=== PATIENT | female | born 1965 | race Caucasian/White ===

== ENCOUNTER → 2024-11-22 | Outpatient (CLI) | payer BC, SELFPAY ==
--- NOTE | 2024-11-22 | XR_ITS ---
Examination: PA lateral chest 2 views TECHNIQUE: Upright PA lateral chest 2 views Exam date and time: November 22, 2024 at 1316 hours INDICATIONS: Chronic coughing beginning 6 months ago. FINDINGS: Normal heart size No pneumonia or pulmonary edema Moderate osteopenia IMPRESSION: No pneumonia or pulmonary edema
[2024-11-22 14:49] LABS: Cocci Serology, IgM Negative (Negative)
[2024-11-27 12:18] LABS: Cocci Serology, IgG Negative (Negative)
== END | disposition home or self-care (01) ==
PROVIDERS: PCP Internal Medicine; Referring Provider Internal Medicine; Visit Provider Internal Medicine
DX: R05.3 Chronic cough (principal)
CPT/HCPCS: 36415; 71046; 86331; 86635

== ENCOUNTER → 2024-12-11 | Outpatient (CLI) | payer BC, SELFPAY ==
[2024-12-11 15:15] LABS: Collection Type, Urine Clean Catch
[2024-12-11 15:38] LABS: Basophils # (Auto) 0.1 Thou/mm3 (0.0-0.2); Basophils % (Auto) 1 % (0-2.5); Eosinophils # (Auto) 0.3 Thou/mm3 (0.0-0.5); Eosinophils % (Auto) 3 % (0-10); Hematocrit 40.4 % (36.0-46.0); Hemoglobin 13.3 g/dL (12.0-16.0); Immature Granulocytes % (Auto) 0 % (0-0); Immature Granulocytes Auto 0.04 Thou/mm3 (0.00-0.00); Lymphocytes # (Auto) 2.5 Thou/mm3 (1.0-4.8); Lymphocytes % (Auto) 27 % (10-50); Mean Corpuscular HGB Conc 32.9 g/dl (31.0-37.0); Mean Corpuscular Hemoglobin 29.2 pg (25.0-35.0); Mean Corpuscular Volume 89 fL (80-100); Monocytes # (Auto) 0.7 Thou/mm3 (0.0-0.8); Monocytes % (Auto) 8 % (0-12); Neutrophils # (Auto) 5.6 Thou/mm3 (1.8-7.7); Neutrophils % (Auto) 61 % (37-80); Nucleated Red Blood Cell % 0 /100 WBC (0); Platelet Count 392 Thou/mm3 (140-440); RDW Standard Deviation 42.5 fL (36.4-46.3); Red Blood Count 4.56 Miln/mm3 (4.00-5.20); White Blood Count 9.3 Thou/mm3 (3.6-11.0)
[2024-12-11 15:48] LABS: Bilirubin,Urine Negative (Negative); Blood,Urine Negative (Negative); Clarity,Urine Clear (Clear/Hazy); Color,Urine Colorless (Lt Yel-Yel); Culture Indicated,Urine Not Indicated; Glucose, Urine Negative (Negative); Ketones,Urine Negative (Negative); Leukocyte Esterase,Urine Negative (Negative); Nitrite,Urine Negative (Negative); Protein,Urine Negative (Neg - Trace); RBC,Urine 1 /hpf (0-3); Specific Gravity,Urine 1.006 (1.001-1.035); Squamous Epithelial Cell,Urine < 1 /hpf (0-5); Urobilinogen,Urine Negative mg/dL (0.0-1.0); WBC,Urine < 1 /hpf (0-5)
[2024-12-11 16:35] LABS: Alanine Aminotransferase 23 U/L (10-49); Albumin, Serum 4.6 gm/dL (3.4-4.8); Albumin/Globulin Ratio 2.2 (1.2-2.2); Anion Gap 8 (7-16); Aspartate Amino Transferase 31 U/L (0-34); BUN/Creatinine Ratio 17 Ratio (12-20); Bilirubin,Total 0.7 mg/dL (0.3-1.2); Blood Urea Nitrogen 15 mg/dL (9-23); Calcium 9.4 mg/dL (8.3-10.6); Calcium (Corrected) 9.4 mg/dL (8.5-10.1); Carbon Dioxide 28.2 mMol/L (20.0-31.0); Cardiac Risk Estimate 5.5 RATIO (3.7-5.6); Chloride 103 mMol/L (98-107); Cholesterol 188 mg/dL (132-200); Creatinine (Component) 0.9 mg/dL (0.6-1.3); Free T4 (Free Thyroxine) 0.95 ng/dL (0.89-1.76); Globulin 2.1 gm/dL (2.3-3.5); Glucose 94 mg/dL (74-106); HDL Cholesterol 34 mg/dL (40-60); LDL Cholesterol,Calculated 125 mg/dL (0-130); Osmolality,Calculated 278 (275-295); Potassium 4.9 mMol/L (3.4-5.1); Sodium 139 mMol/L (136-145); Thyroid Stimulating Hormone 0.85 uIU/mL (0.55-4.78); Total Protein 6.7 gm/dL (5.7-8.2); Triglycerides 144 mg/dL (30-150); eGFR > 60 See Note
[2024-12-11 16:50] LABS: Alkaline Phosphatase 63 U/L (46-116)
== END | disposition home or self-care (01) ==
PROVIDERS: PCP Internal Medicine; Referring Provider Internal Medicine; Visit Provider Internal Medicine
DX: Z00.00 Encounter for general adult medical examination without abnormal findings (principal)
CPT/HCPCS: 36415; 80053; 80061; 81001; 84439; 84443; 85025

== ENCOUNTER → 2025-05-30 | Outpatient (CLI) | payer BC, SELFPAY ==
[2025-05-30 12:46] LABS: Collection Type, Urine Clean Catch
[2025-05-30 13:01] LABS: Basophils # (Auto) 0.1 Thou/mm3 (0.0-0.2); Basophils % (Auto) 1 % (0-2.5); Eosinophils # (Auto) 0.1 Thou/mm3 (0.0-0.5); Eosinophils % (Auto) 2 % (0-10); Hematocrit 43.8 % (36.0-46.0); Hemoglobin 14.5 g/dL (12.0-16.0); Immature Granulocytes Auto 0.02 Thou/mm3 (0.00-0.00); Lymphocytes # (Auto) 2.7 Thou/mm3 (1.0-4.8); Lymphocytes % (Auto) 32 % (10-50); Mean Corpuscular HGB Conc 33.1 g/dl (31.0-37.0); Mean Corpuscular Hemoglobin 28.5 pg (25.0-35.0); Mean Corpuscular Volume 86 fL (80-100); Monocytes # (Auto) 0.6 Thou/mm3 (0.0-0.8); Monocytes % (Auto) 7 % (0-12); Neutrophils # (Auto) 4.8 Thou/mm3 (1.8-7.7); Neutrophils % (Auto) 58 % (37-80); Nucleated Red Blood Cell # 0.00 Thou/mm3 (0.00-0.00); Nucleated Red Blood Cell % 0 /100 WBC (0); Platelet Count 292 Thou/mm3 (140-440); RDW Standard Deviation 40.8 fL (36.4-46.3); Red Blood Count 5.08 Miln/mm3 (4.00-5.20); White Blood Count 8.3 Thou/mm3 (3.6-11.0)
[2025-05-30 13:17] LABS: Alanine Aminotransferase 14 U/L (10-49); Albumin, Serum 4.7 gm/dL (3.4-4.8); Albumin/Globulin Ratio 2.2 (1.2-2.2); Alkaline Phosphatase 68 U/L (46-116); Anion Gap 11 (7-16); Aspartate Amino Transferase 23 U/L (0-34); BUN/Creatinine Ratio 11 Ratio (12-20); Bilirubin,Total 0.8 mg/dL (0.3-1.2); Blood Urea Nitrogen 9 mg/dL (9-23); Calcium 10.3 mg/dL (8.3-10.6); Calcium (Corrected) 10.3 mg/dL (8.5-10.1); Carbon Dioxide 24.1 mMol/L (20.0-31.0); Cardiac Risk Estimate 4.9 RATIO (3.7-5.6); Chloride 105 mMol/L (98-107); Cholesterol 147 mg/dL (132-200); Creatinine (Component) 0.8 mg/dL (0.6-1.3); Free T4 (Free Thyroxine) 1.33 ng/dL (0.89-1.76); Globulin 2.1 gm/dL (2.3-3.5); Glucose 91 mg/dL (74-106); HDL Cholesterol 30 mg/dL (40-60); LDL Cholesterol,Calculated 100 mg/dL (0-130); Osmolality,Calculated 278 (275-295); Potassium 4.2 mMol/L (3.4-5.1); Sodium 140 mMol/L (136-145); Thyroid Stimulating Hormone 1.70 uIU/mL (0.55-4.78); Total Protein 6.8 gm/dL (5.7-8.2); Triglycerides 85 mg/dL (30-150); eGFR > 60 See Note
[2025-05-30 13:47] LABS: Bacteria,Urine 4+; Hyaline Casts,Urine 1 /hpf (0-1); RBC,Urine 7 /hpf (0-3); Squamous Epithelial Cell,Urine 3 /hpf (0-5); WBC,Urine 240 /hpf (0-5)
[2025-05-30 14:08] LABS: Bilirubin,Urine Negative (Negative); Blood,Urine Negative (Negative); Clarity,Urine Turbid (Clear/Hazy); Color,Urine Yellow (Lt Yel-Yel); Glucose, Urine Negative (Negative); Ketones,Urine 1+ (Negative); Leukocyte Esterase,Urine Positive (Negative); Nitrite,Urine Positive (Negative); PH,Urine 5.5 (5.0-7.0); Protein,Urine Trace (Neg - Trace); Specific Gravity,Urine 1.020 (1.001-1.035); Urobilinogen,Urine Negative mg/dL (0.0-1.0)
[2025-05-30 14:14] LABS: Culture Indicated,Urine Yes
== END | disposition home or self-care (01) ==
LOC: COPL 11:36
PROVIDERS: PCP Internal Medicine; Referring Provider Internal Medicine; Visit Provider Internal Medicine
DX: E78.00 Pure hypercholesterolemia, unspecified (principal)
CPT/HCPCS: 36415; 80053; 80061; 81001; 84439; 84443; 85025; 87077; 87086; 87186

== ENCOUNTER 2025-08-27 23:03 | Inpatient (IN) | payer BC, SELFPAY ==
[2025-08-27 23:12] VITALS: BP 102/68; PULSE 101; RESP 18; TEMP 36.3; O2SAT 96
--- NOTE | 2025-08-27 23:37 | XR_ITS ---
Examination: CT abdomen with intravenous contrast CT pelvis with intravenous contrast 2-D coronal reconstructions 2-D sagittal reconstructions Date and time of exam: August 28, 2025, 0239 hours INDICATIONS: Onset abdominal and pelvic pain with nausea vomiting today. CTDI: vol (mGy) 8.87 DLP: (mGycm) 483 Technique: Multiple axial sections of the abdomen and pelvis have been obtained. 64 slice high-resolution scanner used. 3 mm axial sections have been obtained, post intravenous injection 60 cc Isovue 370 2-D sagittal, coronal reconstructions obtained. Low dose protocols were performed. One or more of the following dose reduction techniques were used; automated exposure control, adjustment of the mA and/or KV according to patient size, use of iterative reconstruction technique. Findings: No focal liver or splenic lesions Gallstones Gallbladder wall appears thickened Mild edema around the duodenum and pancreatic head The wall of the common hepatic common bile duct does appear mildly thickened, coronal image 69, common hepatic duct 7.5 mm No renal or ureteral calculi, no hydronephrosis 14 mm fat-containing umbilical hernia Colonic diverticulosis No pelvic mass Bladder intact Lumbar fusion L5-S1 with satisfactory alignment IMPRESSION: Cholelithiasis, gallbladder wall appears thickened Mild edema around the duodenum and pancreatic head consistent with pancreatitis Mildly enlarged common bile duct suspicious for cholangitis Recommend MRCP follow-up
--- NOTE | 2025-08-27 23:39 | PD.EDRME ---
Rapid Medical Screening Exam RME Arrival date/time: 08/27/25 23:03 60-year-old female reports with complaints of abdominal pain nausea and vomiting x 1 day Chief Complaint: Chest Pain Time Seen by Provider: 08/27/25 23:37 Vital signs: Vital Signs Temperature 97.4 F 08/27/25 23:12 Pulse Rate 101 H 08/27/25 23:12 Respiratory Rate 18 08/27/25 23:12 Blood Pressure 102/68 08/27/25 23:12 Pulse Oximetry (%) 96 08/27/25 23:12 Oxygen Delivery Method Room Air 08/27/25 23:12 Exam: ? Clinical Impression: S
[2025-08-27 23:57] LABS: Basophils # (Auto) 0.0 Thou/mm3 (0.0-0.2); Basophils % (Auto) 0 % (0-2.5); Eosinophils # (Auto) 0.0 Thou/mm3 (0.0-0.5); Eosinophils % (Auto) 0 % (0-10); Hematocrit 37.8 % (36.0-46.0); Hemoglobin 13.0 g/dL (12.0-16.0); Immature Granulocytes Auto 0.05 Thou/mm3 (0.00-0.00); Lymphocytes # (Auto) 0.5 Thou/mm3 (1.0-4.8); Lymphocytes % (Auto) 4 % (10-50); Mean Corpuscular HGB Conc 34.4 g/dl (31.0-37.0); Mean Corpuscular Hemoglobin 28.7 pg (25.0-35.0); Mean Corpuscular Volume 83 fL (80-100); Monocytes # (Auto) 0.6 Thou/mm3 (0.0-0.8); Monocytes % (Auto) 5 % (0-12); Neutrophils # (Auto) 10.1 Thou/mm3 (1.8-7.7); Neutrophils % (Auto) 90 % (37-80); Nucleated Red Blood Cell # 0.00 Thou/mm3 (0.00-0.00); Nucleated Red Blood Cell % 0 /100 WBC (0); Platelet Count 247 Thou/mm3 (140-440); RDW Standard Deviation 38.5 fL (36.4-46.3); Red Blood Count 4.53 Miln/mm3 (4.00-5.20); White Blood Count 11.3 Thou/mm3 (3.6-11.0)
[2025-08-28] VITALS (11 sets, daily range): BP systolic 100–124; BP diastolic 52–79; PULSE 60–90; RESP 14–19; TEMP 36.5–37.5; O2SAT 92–100
--- NOTE | 2025-08-28 | XR_ITS ---
MRI abdomen, without contrast. MRCP Date and time of exam: August 28, 2025, 0934 hours INDICATIONS: Abdominal pain nausea vomiting today CT examination today gallstones, edema around the duodenum and pancreas Technique: Multiple axial and coronal images of the abdomen have been obtained with the Siemens 1.5T MRI scanner. Images obtained included T1 weighted transverse images, T2-weighted transverse images, T2-weighted transverse images fat-suppressed, T2 weighted haste fat suppressed transverse images, T1 weighted images, in and out of phase images, T2-weighted coronal images, breath hold, T2 weighted haze coronal images as well as T2 weighted coronal thick slab images, MRCP. Findings: No focal liver lesions Gallstones, gallbladder wall does not appear thickened or edematous Common bile duct 5 mm no common bile duct stones There is significant edema surrounding the pancreas, axial image 21 Pancreatic duct is not dilated Spleen is not enlarged Minimal perinephric stranding which may be secondary to the pancreatitis Aorta normal size No bowel obstruction IMPRESSION: Cholelithiasis, negative for cholecystitis Significant acute pancreatitis No common hepatic or common bile duct stones, no cholangitis pattern
--- NOTE | 2025-08-28 00:13 | EKG_ITS ---
[facility] Test Date: 2025-08-28 Pat Name: SEVERIANO ARREOLA Department: Room: - Gender: Female Food Service Representative: : 1965 Requested By: Matthew Bryant Order Number: [id number] Reading MD: Matthew Bryant Measurements Intervals [place] Rate: 92 P: 62 [place]: 145 QRS: -30 QRSD: 98 T: 30 QT: 379 QTc: 470 Interpretive Statements SINUS RHYTHM SEPTAL MYOCARDIAL INFARCTION , OF INDETERMINATE AGE [40+ ms Q WAVE IN V1/V2] No previous ECG available for comparison /store/S0/[id number].pdf
[2025-08-28] MEDS: METOCLOPRAMIDE INJ 5 MG/ML VIAL 2 ML 10 MG IVP (00:16)
[2025-08-28 00:27] LABS: Alanine Aminotransferase 322 U/L (10-49); Albumin, Serum 4.5 gm/dL (3.4-4.8); Albumin/Globulin Ratio 2.6 (1.2-2.2); Alkaline Phosphatase 198 U/L (46-116); Anion Gap 13 (7-16); Aspartate Amino Transferase 763 U/L (0-34); BUN/Creatinine Ratio 11 Ratio (12-20); Bilirubin,Total 1.7 mg/dL (0.3-1.2); Blood Urea Nitrogen 9 mg/dL (9-23); Calcium 9.6 mg/dL (8.3-10.6); Calcium (Corrected) 9.6 mg/dL (8.5-10.1); Carbon Dioxide 22.1 mMol/L (20.0-31.0); Chloride 109 mMol/L (98-107); Creatinine (Component) 0.8 mg/dL (0.6-1.3); Estimated Creatinine Clearance 75.3 mL/min (>60); Globulin 1.7 gm/dL (2.3-3.5); Glucose 138 mg/dL (74-106); Osmolality,Calculated 287 (275-295); Potassium 3.1 mMol/L (3.4-5.1); Sodium 144 mMol/L (136-145); Total Protein 6.2 gm/dL (5.7-8.2); eGFR > 60 See Note
--- NOTE | 2025-08-28 00:27 | PC.NURSE ---
Pt verbalizes she is not currently having any chest pain. EKG is ordered for patient, and will continue to monitor pt.
--- NOTE | 2025-08-28 00:28 | EDNOTE_ITS ---
ED Chest Pain RME/HPI General Chief Complaint: Chest Pain Stated Complaint: CHEST PAIN MULTIPLE COMPLAINTS Time Seen by Provider: 08/27/25 23:37 Arrival date/time: 08/27/25 23:03 RME / HPI RME / HPI narrative: 08/27/25 23:03 60-year-old female reports with complaints of abdominal pain nausea and vomiting x [address] Brooks?fabricio Main ED Evaluation: 60yo female presenting with diffuse upper abdominal pain since earlier today with several bouts of nonbloody emesis and radiation of pain to the back. Reports generalized fatigue, but denies near syncope. No black tarry stools or hematemesis. PMH includes chronic back pain. PSH includes gastric bypass, appendectomy, L4-s1 lumbar fixation surgery. Social history unremarkable. Related Data Allergies Allergy/AdvReac Type Severity Reaction Status Date / Time NKA* Allergy Uncoded 08/27/25 23:11 Review of Systems Review of Systems Systems Reviewed: All systems reviewed, normal except as documented Past Medical History Past Medical History CARDIAC: Negative Congestive Heart Failure RESPIRATORY: Negative Chronic Obstructive Pulmonary Disease (COPD) GENITOURINARY: Negative Renal Disease ENDOCRINE: Negative Diabetes Mellitus Type 1 or Diabetes Mellitus Type 2 PSYCHO/SOCIAL: Positive Depression Social History SMOKING STATUS: Never smoker ED Exam Narrative Physical exam: GENERAL APPEARANCE: alert and oriented x 4, complains of diffuse upper abdominal pain, in [id number] distress VITALS: All vitals were reviewed and the pulse ox is 100% on room air, which is normal according to my interpretation. HEENT: Normocephalic, atraumatic; pupils equal, round, reactive to light; EOMI; mucous membranes pink, moist; oropharynx clear NECK: Supple LUNGS: CTABL; no wheezes, no rales, no rhonchi HEART: Regular rate, regular rhythm; normal S1, S2; no murmurs ABDOMEN: non distended; soft, diffuse upper abdominal tenderness with equivocal peritoneal findings BACK: no CVA tenderness EXTREMITIES: atraumatic; no edema NEUROLOGIC: awake; alert and oriented x4; cranial nerves II-XII grossly intact; no focal sensory or motor deficits PSYCHIATRIC: appropriate mood and affect SKIN: warm, dry, normal color; no rashes Course Quality Measures none Orders Category Date Time Status CT Screening NOW Care 08/27/25 23:38 Active EKG (ED ONLY) *Do not use* NOW Care 08/28/25 00:[address] abdomen pelvis w con Stat Exams 08/27/25 23:37 Taken EKG (ED Only) Stat Exams 08/28/25 00:13 Ordered US abdomen limited Stat Exams 08/28/25 00:40 Taken Bilirubin,Direct Stat Lab 08/28/25 05:40 Received CBC Stat Lab 08/27/25 23:51 Completed CMP [Comprehensive Metabolic Panel] Stat Lab 08/27/25 23:51 Completed Lipase Stat Lab 08/27/25 23:51 Completed Lipid Panel Stat Lab 08/28/25 05:40 Received UA [Urinalysis] Stat Lab 08/27/25 23:38 Ordered Metoclopramide Inj [Reglan Inj] Med 08/27/25 23:37 Discontinued 10 mg IVP X1 ONE Morphine* Inj Med 08/28/25 00:36 Discontinued 4 mg IVP X1 ONE Prochlorperazine Inj [Compazine Inj] Med 08/28/25 00:35 Discontinued 5 mg IV X1 ONE Sodium Chloride 0.9% 1000 ml [Ns] 1,000 ml Med 08/28/25 00:37 Discontinued IV 999 mls/hr Sodium Chloride 0.9% 1000 ml [Ns] 1,000 ml Med 08/28/25 00:37 Discontinued IV 999 mls/hr Vital Signs Vital signs: Vital Signs Temperature 97.4 F 08/27/25 23:12 Pulse Rate 101 H 08/27/25 23:12 Respiratory Rate 18 08/27/25 23:12 Blood Pressure 102/68 08/27/25 23:12 Pulse Oximetry (%) 96 08/27/25 23:12 Oxygen Delivery Method Room Air 08/27/25 23:12 Chest Pain MDM Narrative MDM Narrative:: Scribe Attestation: 08/28/25 - Radha Gonzalez am scribing for and in the presence of Dr. Brooks. 60yo female presenting with diffuse upper abdominal pain since earlier today with several bouts of nonbloody emesis and radiation of pain to the back. Reports generalized fatigue, but denies near syncope. Please see PE findings. Lab markers demonstrate mildly elevated LFTs although markedly elevated Lipase >3500. CT abdomen pelvis shows both cholecystitis and pancreatitis with cholelithiasis. Abdominal US demonstrates cholecystitis without CBD dilitation. Patient treated with IV antibiotics, fluids, and low dose narcotic analgesics/antiemetics with thdz-fs-cqrhbxqw relief. General surgeon agrees to consult for consideration for cholecystectomy. Hospitalist at bedside have eval patient and added direct bilirubin to determine the likelihood of biliary obstruction due to cholelithiasis. Patient data External records reviewed:: [facility] previous records (Per chart review, patient has no previous ED visits or admissions to this facility.) Clinical information provided by:: patient Social determinants that could affect healthcare access:: none Patient has the following chronic illnesses:: none How is presenting disease/condition affected by chronic disease/condition?: no chronic disease Evaluation data The following diagnostics were reviewed and interpreted by me:: lab results, radiology exam(s) and EKG tracing(s) Lab and/or radiology exams considered but not ordered:: none Interpretation Summary: Telerad Preliminary Report Draft Patient: SEVERIANO ARREOLA. Record#: [id number] Birthdate: 1965 Age/Sex: 60 / F Location: [facility] Attending Dr: Ordering Physician: Date of Service: Procedure(s): Accession Number(s): cc: ~ CT scan of the abdomen and pelvis with intravenous contrast (axial sections with sagittal and coronal reformats) August 28, 2025 0239 hours Clinical History: abd pain, n/v No prior study is available for comparison. Findings: The lung bases are clear. There are fat stranding adjacent to the pancreatic head and duodenum, suggestive of acute pancreatitis and duodenitis. Cholelithiasis with mild gallbladder wall thickening which may represent acute cholecystitis. The liver, spleen, kidneys and adrenals are unremarkable. Gastric sleeve surgery changes are noted. Bowel anastomotic sutures are seen in the left colon. No evidence of bowel obstruction. A moderate amount of fecal material is present in the colon. There are multiple colonic diverticula without evidence of diverticulitis. The appendix is not visualized. There is no mesenteric or retroperitoneal adenopathy. The urinary bladder is unremarkable. There is no free fluid or free air. The uterus and adnexa are unremarkable. Calcific densities are seen in the pelvis, likely representing phleboliths. Degenerative changes are identified in the spine. Postoperative changes are noted in the lower lumbar spine. Impression: No evidence of bowel obstruction, free air or abscess. Fat stranding adjacent to the pancreatic head and duodenum, suggestive of acute pancreatitis and duodenitis. Recommend clinical and laboratory correlation. Cholelithiasis with mild gallbladder wall thickening which may represent acute cholecystitis. Recommend further evaluation with sonography, if clinically indicated. Report Electronically Signed By: Scot Armando 08/28/2025 3:58:49 AM Medications / Prescriptions Medications or Prescriptions considered but not ordered:: none Medication administrations:: Medication Administration History Discontinued Medications Sodium Chloride (Ns) 1,000 mls @ 999 mls/hr IV .Q1H1M ONE Stop: 08/28/25 01:37 Last Infusion: 08/28/25 02:34 Dose: Infused Documented By: Admin: 08/28/25 00:54 Dose: 999 mls/hr Documented By: LISA Sodium Chloride (Ns) 1,000 mls @ 999 mls/hr IV .Q1H1M ONE Stop: 08/28/25 01:37 Last Infusion: 08/28/25 02:34 Dose: Infused Documented By: Admin: 08/28/25 00:54 Dose: 999 mls/hr Documented By: LISA Metoclopramide HCl (Metoclopramide Inj 5 Mg/Ml Vial 2 Ml) 10 mg IVP X1 ONE; Pro tocol Stop: 08/27/25 23:38 Last Admin: 08/28/25 00:16 Dose: 10 mg Documented By: LISA Morphine Sulfate (Morphine Sulf Inj 4 Mg/Ml Vial) 4 mg IVP X1 ONE Stop: 08/28/25 00:37 Last Admin: 08/28/25 00:50 Dose: 4 mg Documented By: LISA Prochlorperazine Edisylate (Prochlorperazine Inj 5 Mg/Ml Vial 2 Ml) 5 mg IV X1 ONE; Protocol Stop: 08/28/25 00:36 Last Admin: 08/28/25 00:53 Dose: 5 mg Documented By: LISA see above Consultations Consultation(s) initiated? (list below): Yes Consultation #1 (Physician, Specialty, Details): Discussed case with Dr. Redding from general surgery regarding consultation. Discussed patients ED course, exam findings, labs, and radiology results. Agrees to consult. Time: 04:16 Consultation #2 (Physician, Specialty, Details): Discussed case with the resident physician, attending Dr. Silverman from Hospitalist service regarding admission. Discussed patients ED course, exam findings, labs, and radiology results. The Hospitalist will evaluate the patient for admission. Time: 04:20 Diagnosis Chest Pain Differential Diagnosis: other (cholelithiasis, cholecystitis, choledocholithiasis, pancreatitis, diverticulitis, gastritis) Most likely diagnosis given after review of the tests above:: see clinical impression below Admission Indicated Admission indicated?: indicated Admission Request Was there a request for admission?: Yes Admission Attestation Admission request attestation: Discussed case with [] from Hospitalist service regarding admission. Discussed patients ED course, exam findings, labs, and radiology results. The Hospitalist [agrees,declines] to accept the patient for admission. Disposition Plan Disposition Plan: Admit Discharge Plan Plan Patient Disposition: Admit Acute Care w/in Hospital Prescriptions/Referrals Referrals: Dania Meyers MD [Primary Care Provider, Internal Medicine] - In 1 week Problem List Clinical Impression: Gallstone pancreatitis Patient/Caregiver Discharge Instructions Print Language: Thai Stand Alone Forms: Bailey Award Info., Patient Portal Info Letter
[2025-08-28 00:29] LABS: Lipase > 3500 U/L (12-53)
--- NOTE | 2025-08-28 00:40 | XR_ITS ---
Examination: Abdomen sonogram, Limited Date and time of exam: August 28, 2025, 0208 hours INDICATIONS: Onset epigastric pain today Technique: Real-time gonzalez scale transabdominal sonographic images of the upper abdomen obtained. Findings: Gallbladder sludge Suspicious for small gallstones Gallbladder wall is thickened 0.6 cm Common bile duct is poorly visualized, according to the technologist measures 0.3 cm Pancreatic head 3.1 cm Liver 13.3 cm fatty infiltration irregular contour Normal hepatopetal portal venous flow Patent IVC IMPRESSION: Findings consistent with calculus cholecystitis Consider MRCP follow-up given the CT findings today
[2025-08-28] MEDS: MORPHINE SULF INJ 4 MG/ML VIAL IVP (00:50)
[2025-08-28] MEDS: PROCHLORPERAZINE INJ 5 MG/ML VIAL 2 ML IV (00:53)
[2025-08-28] MEDS: SODIUM CHLORIDE 0.9% 1000 ML 1,000 ML 999 ML IV ×2 (00:54)
--- NOTE | 2025-08-28 03:59 | PRELIM_ITS ---
CT scan of the abdomen and pelvis with intravenous contrast (axial sections with sagittal and coronal reformats) August 28, 2025 0239 hours Clinical History: abd pain, n/v No prior study is available for comparison. Findings: The lung bases are clear. There are fat stranding adjacent to the pancreatic head and duodenum, suggestive of acute pancreatitis and duodenitis. Cholelithiasis with mild gallbladder wall thickening which may represent acute cholecystitis. The liver, spleen, kidneys and adrenals are unremarkable. Gastric sleeve surgery changes are noted. Bowel anastomotic sutures are seen in the left colon. No evidence of bowel obstruction. A moderate amount of fecal material is present in the colon. There are multiple colonic diverticula without evidence of diverticulitis. The appendix is not visualized. There is no mesenteric or retroperitoneal adenopathy. The urinary bladder is unremarkable. There is no free fluid or free air. The uterus and adnexa are unremarkable. Calcific densities are seen in the pelvis, likely representing phleboliths. Degenerative changes are identified in the spine. Postoperative changes are noted in the lower lumbar spine. Impression: No evidence of bowel obstruction, free air or abscess. Fat stranding adjacent to the pancreatic head and duodenum, suggestive of acute pancreatitis and duodenitis. Recommend clinical and laboratory correlation. Cholelithiasis with mild gallbladder wall thickening which may represent acute cholecystitis. Recommend further evaluation with sonography, if clinically indicated. Report Electronically Signed By: Scot Armando 08/28/2025 3:58:49 AM [EST]
[2025-08-28 06:21] LABS: Bilirubin,Direct 1.1 mg/dL (0.0-0.3); Cardiac Risk Estimate 3.3 RATIO (3.7-5.6); Cholesterol 103 mg/dL (132-200); HDL Cholesterol 31 mg/dL (40-60); LDL Cholesterol,Calculated 65 mg/dL (0-130); Triglycerides 37 mg/dL (30-150)
--- NOTE | 2025-08-28 06:21 | PRELIM_ITS ---
Ultrasound Abdomen. August 28, 2025 0208 hours Clinical history: R/O choledocholithiasis. Technique: Grayscale and color flow images of the abdomen are provided. Hepatic and portal veins were also imaged with color flow images. Correlated with the prior CT study dated 08/28/2025 02:39 AM Findings: The liver is heterogeneous in echogenicity with irregular contour. Hepatopetal flow in main portal vein. No intrahepatic biliary ductal dilatation. Echogenic content is seen gallbladder suggesting sludge, however calculi can not be excluded within also. Gallbladder wall thickening. The common bile duct is normal in caliber at 3 mm. The pancreas is unremarkable to the extent visualized. The inferior vena cava to the extent visualized is within normal limits. Impression: Findings related to cholelithiasis with acute cholecystitis. No evidence of choledocholithiasis. Report Electronically Signed By: Scot Armando 08/28/2025 6:21:37 AM [EST]
--- NOTE | 2025-08-28 08:04 | EDNOTE_ITS ---
Emergency Room Addendum <Radha Cervantes - Last Filed: 08/28/25 08:07> Addendum Narrative: 0600: Care assumed from Dr. Lee, the previous shift emergency physician. Past medical, surgical, social and family history reviewed. Vitals and home medications reviewed. Results and treatment plan discussed. I will assume the care of the patient at this time and will follow the patient. Please refer to the emergency department record for history and examination from initial visit. 0805: Discussed case with Dr. Redding from general surgery regarding consultation. Discussed patients ED course, exam findings, labs, and radiology results. States she will not be taking the patient to the OR anytime soon due to the patient's pancreatitis. <Tricia To - Last Filed: 08/28/25 12:26> Addendum Narrative: 0600: Care assumed from Dr. Lee, the previous shift emergency physician. Past medical, surgical, social and family history reviewed. Vitals and home medications reviewed. Results and treatment plan discussed. I will assume the care of the patient at this time and will follow the patient pending MRCP. Please refer to the emergency department record for history and examination from initial visit. 0805: Discussed case with Dr. Redding from general surgery regarding consultation. Discussed patients ED course, exam findings, labs, and radiology results. States she will not be taking the patient to the OR anytime soon due to the patient's pancreatitis. 1100: I spoke with hospitalist team C. Discussed patients PMHx, HPI, ED course, exam findings, labs, and radiology results. The hospitalist agree to accept the patient for admission. Diagnosis: Acute pancreatitis RADIOLOGY Ordering Physician: Grady Browne Date of Service: 08/28/25 Procedure(s): MR MRCP Accession Number(s): [id number] cc: Berto Meeks MD; Anya Coles MD; Grady Browne~ MRI abdomen, without contrast. MRCP Date and time of exam: August 28, 2025, 0934 hours INDICATIONS: Abdominal pain nausea vomiting today CT examination today gallstones, edema around the duodenum and pancreas Technique: Multiple axial and coronal images of the abdomen have been obtained with the Siemens 1.5T MRI scanner. Images obtained included T1 weighted transverse images, T2-weighted transverse images, T2-weighted transverse images fat-suppressed, T2 weighted haste fat suppressed transverse images, T1 weighted images, in and out of phase images, T2-weighted coronal images, breath hold, T2 weighted haze coronal images as well as T2 weighted coronal thick slab images, MRCP. Findings: No focal liver lesions Gallstones, gallbladder wall does not appear thickened or edematous Common bile duct 5 mm no common bile duct stones There is significant edema surrounding the pancreas, axial image 21 Pancreatic duct is not dilated Spleen is not enlarged Minimal perinephric stranding which may be secondary to the pancreatitis Aorta normal size No bowel obstruction IMPRESSION: Cholelithiasis, negative for cholecystitis Significant acute pancreatitis No common hepatic or common bile duct stones, no cholangitis pattern Dictated By: Berto Meeks MD Signed By: <Electronically signed by Berto Meeks MD in [place]> 08/28/25 1032
[2025-08-28 08:11] LABS: Collection Type, Urine Clean Catch; RBC,Urine 0 /hpf (0-3); WBC,Urine 0 /hpf (0-5)
[2025-08-28 08:27] LABS: Bilirubin,Urine Negative (Negative); Blood,Urine Negative (Negative); Clarity,Urine Clear (Clear/Hazy); Color,Urine Yellow (Lt Yel-Yel); Glucose, Urine Negative (Negative); Ketones,Urine Trace (Negative); Leukocyte Esterase,Urine Negative (Negative); Nitrite,Urine Negative (Negative); PH,Urine 5.5 (5.0-7.0); Protein,Urine Negative (Neg - Trace); Squamous Epithelial Cell,Urine 2 /hpf (0-5); Urobilinogen,Urine 2.0 mg/dL (0.0-1.0)
[2025-08-28 08:29] LABS: Specific Gravity,Urine > 1.035 (1.001-1.035)
[2025-08-28] MEDS: LORazepam 2 MG/ML VIAL 1 MG IVP (09:49)
--- NOTE | 2025-08-28 12:46 | ESHP_ITS ---
<Statement entered by Sharif Donnelly MD - 08/28/25 17:01> Ms. Jones is a 60 y/o female with PMH GERD, appendectomy and Dilan-en-Y and on retatrutide (GLP-1agonist) presented to the ED complaining of with RUQ and epigastric pain for past 1 day as well as nausea and several episodes of nonbloody nonbilious vomiting. Pt denies alcohol use or any previous episodes of similar symptoms. Lipase is >3500 and imaging is evident of acute pancreatitis. Pt is NPI, started on IV fluids and pain management. Patient was seen and examined by me personally. I have directly supervised and reviewed documentation by the team resident and agree with its findings. ------- Plan of care was discussed with the attending, Dr. Serafin Donnelly, PGY-2 Documentation for date of: 08/28/25 HPI History of Present Illness History of present illness: Ms. Jones is a 60 y/o female with PMH GERD, appendectomy and Dilan-en-Y who presented to the ED on 08/28 with RUQ and epigastric pain x 1 day. Associated with nausea and 6-7 episodes of nonbloody nonbilious vomitng. Last PO intake 08/27 at noon, developed symptoms starting around 3 PM 08/27. Last BM 08/27 AM, regular. No similar previous episodes. Patient has been taking Retatrutide since January 2025, last injection 2 weeks ago. She has lost ~80 lbs since starting this medication. She orders this medication online from [facility], and her PCP, Dr. Meyers, was made aware, follows basic labs, per pt. She does not take any supplements, does not have any dietary restrictions. ED course: Afebrile, VSS. Labs significant for WBC 11.3, K 3.1, Cl 109, AST 763, ALT 322, alk phos 198, T bili 1.7, D bili 1.1. Lipase >3500. Lipid panel WNL. UA unremarkable. CT a/p, Abd US, and MRCP showed cholelithiasis w/o cholecystitis, no CBD stones. Acute pancreatitis. Given metoclopramide 10 mg IV, morphine 4 mg IV, prochlorperazine 5 mg IV, lorazepam 1 mg IV, and 2L NS. PMHx: Depression, GERD Allergies: NKDA Home meds: Citalopram 40 mg daily Omeprazole 40 mg daily Retatrutide weekly injection (triple receptor agonist) - from [employer] peptide SgHx: Appendectomy, Dilan-en-Y SHx: Denies smoking, EtOH, recreational drug use FHx: none reported Review of Systems Review of Systems Narrative Review of Systems: 14 point ROS negative other than HPI Exam Vital Signs Temp Pulse Resp BP Pulse Ox O2 Del Method 99.5 F 67 14 100/64 97 Room Air 08/28/25 10:40 08/28/25 10:40 08/28/25 10:40 08/28/25 10:40 08/28/25 10:40 08/28/25 10:40 Narrative Exam General: No acute distress, well nourished, lying in bed with lights off Eye: PERRL, EOMI, normal conjunctiva, no scleral icterus HENT: Normocephalic, atraumatic, normal hearing, moist oral mucosa Neck: Supple, non-tender, no JVD, no lymphadenopathy Lungs: Clear to auscultation bilaterally, non-labored respirations, symmetric chest rise, no use of accessory muscles Heart: Normal S1 and S2, no S3 or S4 appreciated. Normal rate and regular rhythm, no murmurs, rubs gallops, or edema. Peripheral pulses intact bilaterally, capillary refill brisk distally Abdomen: Soft, nondistended, TTP of b/l upper quadrants and epigastric region, guarding with palpation in LUQ and epigastric region Musculoskeletal: Normal range of motion and strength, no tenderness or swelling Skin: Skin is warm, dry, no rashes or lesions. Neurologic: Alert, awake and oriented x3. CN II-XII grossly intact. No focal neuro deficits. No signs of meningeal irritation noted. Psychiatric: Cooperative, appropriate mood and affect Results: Labs 08/29/25 04:25 08/29/25 04:25 Labs: Short CBC 08/27/25 Range/Units 23:51 WBC 11.3 H (3.6-11.0) Thou/mm3 Hgb 13.0 (12.0-16.0) g/dL Hct 37.8 (36.0-46.0) % Plt Count 247 (140-440) Thou/mm3 [facility] 08/27/25 23:51 Sodium 144 Potassium 3.1 L Chloride 109 H Carbon Dioxide 22.1 BUN 9 Creatinine 0.8 Glucose 138 H Calcium 9.6 Liver Function 08/27/25 08/28/25 Range/Units 23:51 05:40 Total Bilirubin 1.7 H (0.3-1.2) mg/dL Direct Bilirubin 1.1 H (0.0-0.3) mg/dL AST 763 H* (0-34) U/L ALT 322 H (10-49) U/L Alkaline Phosphatase 198 H (46-116) U/L Albumin 4.5 (3.4-4.8) gm/dL Urine 08/28/25 Range/Units 08:02 Urine Color Yellow (Lt Yel-Yel) Urine Clarity Clear (Clear/Hazy) Urine pH 5.5 (5.0-7.0) Ur Specific [place] > 1.035 H (1.001-1.035) Urine Protein Negative (Neg - Trace) Urine Glucose (UA) Negative (Negative) Quality Measures Quality Measures none Medications Home Medications and Allergies Home Medications ?Medication ?Instructions ?Recorded ?Confirmed ?Type citalopram 40 mg tablet (Celexa) 40 mg PO QDAY 5 08/28/25 History omeprazole 40 mg capsule,delayed 40 mg PO QDAY 5 08/28/25 History release Allergies Allergy/AdvReac Type Severity Reaction Status Date / Time NKA* Allergy Uncoded 08/27/25 23:11 Visit Medications Acetaminophen (Acetaminophen 325 Mg Tablet) 650 mg PO Q6H PRN PRN Reason: Fever >100.3 Stop: 09/27/25 12:28 Acetaminophen (Acetaminophen 325 Mg Tablet) 650 mg PO Q6H PRN PRN Reason: PAIN SCALE 1-3 (mild Stop: 09/27/25 12:28 Citalopram Hydrobromide (Citalopram 20 Mg Tablet) 40 mg PO QDAY JOYCELYN Stop: 09/27/25 12:39 Heparin Sodium (Porcine) (Heparin Sod Inj 5000 Unit/Ml Vial) 5,000 unit SC Q8HR JOYCELYN Stop: 09/11/25 13:59 Lactated Ringer's (Lactated Ringers) 1,000 mls @ 125 mls/hr IV .Q8H JOYCELYN Stop: 09/27/25 12:33 Morphine Sulfate (Morphine Sulf Inj 4 Mg/Ml Vial) 2 mg IVP Q4HR PRN PRN Reason: pain 4-10 Ondansetron HCl (Ondansetron Inj 2 Mg/Ml Inj 2 Ml) 4 mg IVP Q6H PRN; Protocol PRN Reason: NAUSEA OR VOMITING Stop: 09/27/25 12:28 Pantoprazole Sodium (Pantoprazole Inj 40 Mg Vial) 40 mg IVP QDAY [facility] Stop: 09/27/25 12:44 Discontinued Medications Sodium Chloride (Ns) 1,000 mls @ 999 mls/hr IV .Q1H1M ONE Stop: 08/28/25 01:37 Last Infusion: 08/28/25 02:34 Dose: Infused Sodium Chloride (Ns) 1,000 mls @ 999 mls/hr IV .Q1H1M ONE Stop: 08/28/25 01:37 Last Infusion: 08/28/25 02:34 Dose: Infused Lorazepam (Lorazepam 2 Mg/Ml Vial) 1 mg IVP X1 ONE Stop: 08/28/25 09:40 Last Admin: 08/28/25 09:49 Dose: 1 mg Metoclopramide HCl (Metoclopramide Inj 5 Mg/Ml Vial 2 Ml) 10 mg IVP X1 ONE; Protocol Stop: 08/27/25 23:38 Last Admin: 08/28/25 00:16 Dose: 10 mg Morphine Sulfate (Morphine Sulf Inj 4 Mg/Ml Vial) 4 mg IVP X1 ONE Stop: 08/28/25 00:37 Last Admin: 08/28/25 00:50 Dose: 4 mg Prochlorperazine Edisylate (Prochlorperazine Inj 5 Mg/Ml Vial 2 Ml) 5 mg IV X1 ONE; Protocol Stop: 08/28/25 00:36 Last Admin: 08/28/25 00:53 Dose: 5 mg Assessment & Plan Plan Ms. Jones is a 60 y/o female with PMH GERD, appendectomy and Dilan-en-Y who presented to the ED on 08/28 with RUQ and epigastric pain, N/V x 1 day. Admitted for acute pancreatitis most likely 2/2 Retatrutide use. #Acute pancreatitis #Cholelithiasis #Transaminitis RUQ, epigastric pain, N/V x 1 day AST 763, ALT 322, alk phos 198, T bili 1.7, D bili 1.1, lipase >2500 Lipid panel WNL, no hx EtOH use Has been taking Retatrutide (triple GLP-1, GIP, and glucagon receptor agonist for obesity) - can cause pancreatitis CT a/p, Abd US, and MRCP showed cholelithiasis w/o cholecystitis, no CBD stones. Acute pancreatitis. Received 2L NS in ED Acute pancreatitis most likely 2/2 cholelithiasis vs Retatrutide Plan: - NPO - Morphine 2 mg IV q4h PRN - Zofran PRN - LR 125 mL/hr - Pending urine EtOH, UDS - CTM symptoms and vitals - Pt to stop taking Retatrutide on discharge - Consulted gen surg, Dr. Redding #GERD Plan: - Omeprazole 40 mg IV daily (home med, PO) #Depression Plan: - Citalopram 40 mg daily #Hx Dilan-en-Y Peformed >25 years ago Hgb and HCT appropriate, no anemia Plan: - CTM CBC daily Plan discussed with Dr. Janusz Donnelly and Dr. Serafin Traylor MD PGY1 Attending Provider Attestation/Addendum I reviewed labs, imaging, EKG, home medications and prior available records. Face to face evaluation was performed by me. I have personally examined the patient and discussed assessment and plan with the IM team. I reviewed the resident note and agree with the plan with exceptions as below. Biliary pancreatitis Cholelithiasis Transaminitis MRCP showed no choledocholithiasis or dilated CBD Continue IV fluids at high rate Management of nausea/vomiting as needed Management of pain as needed Trend LFTs Consulted surgery for cholecystectomy
--- NOTE | 2025-08-28 13:01 | PC.NURSE ---
SPOKE TO DR. Javon SORENSON TO VERIFY HEPARIN SUBQ ORDER FOR PT; PT CURRENTLY HAS NO CURRENT COAGULATION LAB STUDIES AT THIS TIME. PER DR. SORENSON, I ORDERED COAGULATION STUDIES. HOLD HEPARIN SUBQ MED FOR NOW UNTIL COAGULATION STUDIES ARE RESULTED.''
[2025-08-28] MEDS: RINGERS LACTATED 1000 ML 1,000 ML 125 ML IV (13:13)
[2025-08-28] MEDS: CITALOPRAM 20 MG TABLET 40 MG PO (13:28)
--- NOTE | 2025-08-28 13:35 | PC.SS ---
Patient Yi Jones is a 60 Year old female admitted for Chest Pain Multiple Complaints. SS met with patient at bedside to discuss discharge plan and verify demographic information. Patient reports she lives at home with family. Patient reports her is her surrogate decision maker, [phone]. Patient reports she does not utilize any source of DME to assist with ambulation. Patient is independent with all ADLs. Pharmacy of choice is [facility]. Patient reports her PCP is Siri Castro. At time of discharge patient will return back home when medically cleared. Discharge plan: Home Next of kin: , Marc Jones [phone]
[2025-08-28 16:00] LABS: INR 1.1 (0.9-1.3); Partial Thromboplastin Time 22.7 Seconds (22.0-36.0); Prothrombin Time 11.9 Seconds (9.0-12.2)
[2025-08-28] MEDS: HEPARIN SOD INJ 5000 UNIT/ML VIAL SC ×2 (16:26→21:16)
[2025-08-28 16:40] LABS: Alcohol, Urine Negative (Negative); Amphetamine/Methamp Scrn,U Negative (Negative); Barbiturate Screen,Urine Negative (Negative); Benzodiazepines Screen,Urine Negative (Negative); Benzoylecgonine Screen, Ur Negative (Negative); Fentanyl Screen,Urine Negative (Negative); Opiate Screen,Urine Positive (Negative); THC Screen,Urine Negative (Negative)
--- NOTE | 2025-08-28 16:51 | PC.NURSE ---
Patient arrived to unit at this time.
[2025-08-28] MEDS: POTASSIUM CHL 10 mEq IVPB 10 MEQ/100 ML BAG 100 MEQ IV ×4 (17:02→20:12)
[2025-08-28] MEDS: RINGERS LACTATED 1000 ML 1,000 ML 200 ML IV (17:12)
[2025-08-29] VITALS: BP 118/59; PULSE 64; PULSE 69; RESP 17; TEMP 37.6; O2SAT 95
[2025-08-29] MEDS: RINGERS LACTATED 1000 ML 1,000 ML 200 ML IV ×5 (00:35→21:17)
[2025-08-29 00:37] LABS: Anion Gap 9 (7-16); BUN/Creatinine Ratio 10 Ratio (12-20); Blood Urea Nitrogen 6 mg/dL (9-23); Calcium 8.1 mg/dL (8.3-10.6); Carbon Dioxide 23.5 mMol/L (20.0-31.0); Chloride 111 mMol/L (98-107); Creatinine (Component) 0.6 mg/dL (0.6-1.3); Estimated Creatinine Clearance 100.4 mL/min (>60); Glucose 66 mg/dL (74-106); Osmolality,Calculated 280 (275-295); Potassium 3.8 mMol/L (3.4-5.1); Sodium 143 mMol/L (136-145); eGFR > 60 See Note
[2025-08-29 04:00] VITALS: BP 124/65; PULSE 68; PULSE 73; RESP 17; TEMP 37.2; O2SAT 98
[2025-08-29] MEDS: MORPHINE SULF INJ 4 MG/ML VIAL 2 MG IVP ×2 (04:07→22:43)
[2025-08-29] MEDS: HEPARIN SOD INJ 5000 UNIT/ML VIAL SC ×3 (05:06→21:14)
[2025-08-29 05:36] LABS: Basophils # (Auto) 0.0 Thou/mm3 (0.0-0.2); Basophils % (Auto) 0 % (0-2.5); Eosinophils # (Auto) 0.3 Thou/mm3 (0.0-0.5); Eosinophils % (Auto) 3 % (0-10); Hematocrit 31.6 % (36.0-46.0); Hemoglobin 10.7 g/dL (12.0-16.0); Immature Granulocytes Auto 0.03 Thou/mm3 (0.00-0.00); Lymphocytes # (Auto) 1.4 Thou/mm3 (1.0-4.8); Lymphocytes % (Auto) 15 % (10-50); Mean Corpuscular HGB Conc 33.9 g/dl (31.0-37.0); Mean Corpuscular Hemoglobin 29.3 pg (25.0-35.0); Mean Corpuscular Volume 87 fL (80-100); Monocytes # (Auto) 0.6 Thou/mm3 (0.0-0.8); Monocytes % (Auto) 6 % (0-12); Neutrophils # (Auto) 6.9 Thou/mm3 (1.8-7.7); Neutrophils % (Auto) 75 % (37-80); Nucleated Red Blood Cell # 0.00 Thou/mm3 (0.00-0.00); Nucleated Red Blood Cell % 0 /100 WBC (0); Platelet Count 182 Thou/mm3 (140-440); RDW Standard Deviation 42.2 fL (36.4-46.3); Red Blood Count 3.65 Miln/mm3 (4.00-5.20); White Blood Count 9.3 Thou/mm3 (3.6-11.0)
[2025-08-29 06:00] VITALS: BMI 29.2
[2025-08-29 06:08] LABS: Alanine Aminotransferase 367 U/L (10-49); Albumin, Serum 3.5 gm/dL (3.4-4.8); Albumin/Globulin Ratio 2.5 (1.2-2.2); Alkaline Phosphatase 137 U/L (46-116); Anion Gap 9 (7-16); Aspartate Amino Transferase 306 U/L (0-34); BUN/Creatinine Ratio 8 Ratio (12-20); Bilirubin,Total 1.6 mg/dL (0.3-1.2); Blood Urea Nitrogen 5 mg/dL (9-23); Calcium 8.2 mg/dL (8.3-10.6); Calcium (Corrected) 8.6 mg/dL (8.5-10.1); Carbon Dioxide 23.5 mMol/L (20.0-31.0); Chloride 110 mMol/L (98-107); Creatinine (Component) 0.6 mg/dL (0.6-1.3); Estimated Creatinine Clearance 100.4 mL/min (>60); Globulin 1.4 gm/dL (2.3-3.5); Glucose 61 mg/dL (74-106); Magnesium 1.6 mg/dL (1.6-2.6); Osmolality,Calculated 278 (275-295); Phosphorous 2.0 mg/dL (2.4-5.1); Potassium 3.8 mMol/L (3.4-5.1); Sodium 142 mMol/L (136-145); Total Protein 4.9 gm/dL (5.7-8.2); eGFR > 60 See Note
--- NOTE | 2025-08-29 07:49 | ESPR_ITS ---
Documentation for date of: 08/29/25 Subjective Subjective Interval history: NAEO. VSS. Patient reports that her pain has resolved, managed with morphine 2 mg IV q4h. Denies N/V. Able to ambulate to bathroom without support, denies dizziness. Dr. Redding recommended cholecystectomy 08/30, transitioned pt to clear diet. Exam Vital Signs Temp Pulse Resp BP Pulse Ox O2 Del Method 98.9 F 73 17 124/65 98 Room Air 08/29/25 04:00 08/29/25 04:00 08/29/25 04:00 08/29/25 04:00 08/29/25 04:00 08/29/25 04:00 Narrative Exam General: No acute distress, well nourished Eye: PERRL, EOMI, normal conjunctiva, no scleral icterus HENT: Normocephalic, atraumatic, normal hearing, moist oral mucosa Neck: Supple, non-tender, no JVD, no lymphadenopathy Lungs: Clear to auscultation bilaterally, non-labored respirations, symmetric chest rise, no use of accessory muscles Heart: Normal S1 and S2, no S3 or S4 appreciated. Normal rate and regular rhythm, no murmurs, rubs gallops, or edema. Peripheral pulses intact bilaterally, capillary refill brisk distally Abdomen: Soft, nondistended, TTP of b/l upper quadrants and epigastric region Musculoskeletal: Normal range of motion and strength, no tenderness or swelling Skin: Skin is warm, dry, no rashes or lesions. Neurologic: Alert, awake and oriented x3. CN II-XII grossly intact. No focal neuro deficits. No signs of meningeal irritation noted. Psychiatric: Cooperative, appropriate mood and affect Objective Labs 08/29/25 04:25 08/29/25 04:25 Labs: Laboratory Results - last 24 hr 08/28/25 08/28/25 08/28/25 08:02 15:31 23:45 WBC RBC Hgb Hct MCV MCH MCHC RDW Std Deviation Plt Count Neut % (Auto) Lymph % (Auto) [place] % (Auto) Eos % (Auto) Baso % (Auto) Neut # (Auto) Lymph # (Auto) [place] # (Auto) Eos # (Auto) Baso # (Auto) Immature Gran # (Auto) Absolute Nucleated RBC Immature Gran % Nucleated RBC % PT 11.9 INR 1.1 APTT 22.7 Sodium 143 Potassium 3.8 D Chloride 111 H Carbon Dioxide 23.5 Anion Gap 9 BUN 6 L Creatinine 0.6 Estim Creat Clear Calc 100.4 eGFR > 60 BUN/Creatinine Ratio 10 L Glucose 66 L D Calculated Osmolality 280 Calcium 8.1 L D Corrected Calcium Phosphorus Magnesium Total Bilirubin AST ALT Alkaline Phosphatase Total Protein Albumin Globulin Albumin/Globulin Ratio Ur Collection Type Clean Catch Urine Color Yellow Urine Clarity Clear Urine pH 5.5 Ur Specific [place] > 1.035 H Urine Protein Negative Urine Glucose (UA) Negative Urine Ketones Trace Urine Blood Negative Urine Nitrite Negative Urine Bilirubin Negative Urine Urobilinogen (Auto) 2.0 Ur Leukocyte Esterase Negative Urine RBC 0 Urine WBC 0 Ur Squamous Epith Cells 2 Urine Bacteria None Urine Opiates Screen Positive A Urine Fentanyl Screen Negative Ur Barbiturates Screen Negative U Amphetamin/Meth Scrn Negative U Benzodiazepines Scrn Negative U Cocaine Metab Screen Negative U Marijuana (THC) Screen Negative Urine Alcohol Negative 08/29/25 04:25 WBC 9.3 RBC 3.65 L Hgb 10.7 L D Hct 31.6 L MCV 87 MCH 29.3 MCHC 33.9 RDW Std Deviation 42.2 Plt Count 182 D Neut % (Auto) 75 Lymph % (Auto) 15 [place] % (Auto) 6 Eos % (Auto) 3 Baso % (Auto) 0 Neut # (Auto) 6.9 Lymph # (Auto) 1.4 [place] # (Auto) 0.6 Eos # (Auto) 0.3 Baso # (Auto) 0.0 Immature Gran # (Auto) 0.03 H Absolute Nucleated RBC 0.00 Immature Gran % 0 Nucleated RBC % 0 PT INR APTT Sodium 142 Potassium 3.8 Chloride 110 H Carbon Dioxide 23.5 Anion Gap 9 BUN 5 L Creatinine 0.6 Estim Creat Clear Calc 100.4 eGFR > 60 BUN/Creatinine Ratio 8 L Glucose 61 L Calculated Osmolality 278 Calcium 8.2 L Corrected Calcium 8.6 Phosphorus 2.0 L Magnesium 1.6 Total Bilirubin 1.6 H AST 306 H ALT 367 H Alkaline Phosphatase 137 H D Total Protein 4.9 L Albumin 3.5 D Globulin 1.4 L Albumin/Globulin Ratio 2.5 H Ur Collection Type Urine Color Urine Clarity Urine pH Ur Specific [place] Urine Protein Urine Glucose (UA) Urine Ketones Urine Blood Urine Nitrite Urine Bilirubin Urine Urobilinogen (Auto) Ur Leukocyte Esterase Urine RBC Urine WBC Ur Squamous Epith Cells Urine Bacteria Urine Opiates Screen Urine Fentanyl Screen Ur Barbiturates Screen U Amphetamin/Meth Scrn U Benzodiazepines Scrn U Cocaine Metab Screen U Marijuana (THC) Screen Urine Alcohol Quality Measures Quality Measures none Assessment & Plan Assessment Current Active Medications: Generic Name Dose Route Start Last Admin Trade Name Freq PRN Reason Stop Dose Admin Acetaminophen 650 mg 08/28/25 12:29 Acetaminophen 325 Mg Tablet PO 09/27/25 12:28 Q6H PRN Fever >100.3 Acetaminophen 650 mg 08/28/25 12:29 Acetaminophen 325 Mg Tablet PO 09/27/25 12:28 Q6H PRN PAIN SCALE 1-3 (mild Citalopram Hydrobromide 40 mg 08/28/25 12:40 08/28/25 13:28 Citalopram 20 Mg Tablet PO 09/27/25 12:39 40 mg QDAY JOYCELYN Administration Heparin Sodium (Porcine) 5,000 unit 08/28/25 14:00 08/29/25 05:06 Heparin Sod Inj 5000 Unit/Ml Vial SC 09/11/25 13:59 5,000 unit Q8HR JOYCELYN Administration Lactated Ringer's 1,000 mls @ 200 mls/hr 08/28/25 17:05 08/29/25 05:04 Lactated Ringers IV 09/27/25 17:04 200 mls/hr .Q5H JOYCELYN Administration Morphine Sulfate 2 mg 08/28/25 12:34 08/29/25 04:07 Morphine Sulf Inj 4 Mg/Ml Vial IVP 2 mg Q4HR PRN Administration pain 4-10 Ondansetron HCl 4 mg 08/28/25 12:29 Ondansetron Inj 2 Mg/Ml Inj 2 Ml IVP 09/27/25 12:28 Q6H PRN NAUSEA OR VOMITING Protocol Pantoprazole Sodium 40 mg 08/28/25 12:45 08/28/25 13:07 Pantoprazole Inj 40 Mg Vial IVP 09/27/25 12:44 40 mg QDAY JOYCELYN Administration Pharmacy Consult 1 each 08/28/25 17:05 Pharmacy To Consult Pneumovacc XX 09/27/25 17:04 PRN PRN CONSULT Plan Ms. Jones is a 60 y/o female with PMH GERD, appendectomy and Dilan-en-Y who presented to the ED on 08/28 with RUQ and epigastric pain, N/V x 1 day. Admitted for acute pancreatitis most likely 2/2 cholelithiasis. #Acute pancreatitis #Cholelithiasis #Transaminitis RUQ, epigastric pain, N/V x 1 day AST 763, ALT 322, alk phos 198, T bili 1.7, D bili 1.1, lipase >2500 Lipid panel WNL, no hx EtOH use UDS + opiates (given in ED), EtOH negative Has been taking Retatrutide (triple GLP-1, GIP, and glucagon receptor agonist for obesity) - can cause pancreatitis CT a/p, Abd US, and MRCP showed cholelithiasis w/o cholecystitis, no CBD stones. Acute pancreatitis. Received 2L NS in ED Acute pancreatitis most likely 2/2 cholelithiasis vs Retatrutide Plan: - Transition to clears today. NPO after midnight for cholecystectomy 08/[address] Redding - Morphine 2 mg IV q4h PRN - Zofran PRN - LR 200 mL/hr - CTM symptoms and vitals - Pt to stop taking Retatrutide on discharge - Consulted gen surg, Dr. Redding #GERD Plan: - Omeprazole 40 mg IV daily (home med, PO) #Depression Plan: - Citalopram 40 mg daily #Hx Dilan-en-Y Performed >25 years ago Hgb and HCT appropriate, no anemia Plan: - CTM CBC daily #Normocytic anemia i/s/o hx Dilan-en-y Plan: -Pending iron panel, ferritin, retic count, B12, folate, 25-OH vit D - CTM CBC daily #Electrolyte disturbances Plan: - Replete as needed #Hypoglycemia, acute - resolved i/s/o NPO Given amp D50 with resolution of hypoglycemia Plan: - CTM with daily CMP, transitioned to clears Checklist Dispo: Pending cholecystectomy 08/30 Lines: PIV Diet: clears Bowel Reg: n/a VTE ppx: heparin subQ GI ppx: n/a Pain mgmt: Tylenol PRN, Morphine 2 mg IV q4h PRN Code status: full Plan discussed with Dr. Janusz Donnelly and Dr. Serafin Traylor MD PGY1 Attending Provider Attestation/Addendum I reviewed labs, imaging, EKG, home medications and prior available records. Face to face evaluation was performed by me. I have personally examined the patient and discussed assessment and plan with the IM team. I reviewed the resident note and agree with the plan with exceptions as below. Biliary pancreatitis Cholelithiasis Transaminitis MRCP showed no choledocholithiasis or dilated CBD Continue IV fluids at high rate Management of nausea/vomiting as needed Management of pain as needed Trend LFTs: Downtrending Consulted surgery for cholecystectomy: Plan for OR on 08/30 Clear liquid diet. N.p.o. after midnight on 08/30
[2025-08-29 08:00] VITALS: BP 116/46; PULSE 72; PULSE 75; RESP 18; TEMP 37.6; O2SAT 94
[2025-08-29 08:34] LABS: Ferritin 226 ng/mL (7.3-270.7); Immature Reticulocyte Fraction 13.5 % (3.0-15.9); Iron 32 mcg/dL (50-170); Percent Iron Saturation 15 % (20-55); Reticulocyte % (Auto) 1.0 % (0.5-1.5); Reticulocyte Absolute Auto 37.5 Biln/L (25.0-75.0); Reticulocyte Hgb Content 33.9 pg (28.0-35.0); Total Iron Binding Capacity 211 mcg/dL (250-425); Unsaturated Iron Binding 179 (225-295)
[2025-08-29] MEDS: CITALOPRAM 20 MG TABLET 40 MG PO (08:39)
[2025-08-29] MEDS: DEXTROSE 50%-WATER INJ 50 ML SYRINGE IVP (09:02)
[2025-08-29] MEDS: POT PHOS 15 mMol in NS 250 ML 15 MMOL/250 ML BAG 62.5 MMOL IV ×2 (09:03→12:06)
[2025-08-29 09:45] LABS: Folate 5.60 ng/mL (>5.38); Vitamin B12 418 pg/mL (211-911); Vitamin D 25 Hydroxy Total 15.7 ng/mL (7.3-40.2)
--- NOTE | 2025-08-29 10:42 | PD.SURCONS ---
HPI Consult details History of present illness: 60F with history of remote gastric bypass, GERD who presented to ER with abdominal pain, nausea/vomiting. Pt reports symptoms began a few days ago after eating, with severe upper abdominal pain which resolved but then recurred after she ate again the next day. Associated with nausea/vomiting but she denies any fever/chills or diarrhea. Because the pain then persisted she sought care in ER where findings were consistent with gallstone pancreatitis. As of today pt reports feeling much better with little to no pain or nausea. She denies any history of similar symptoms. Of note pt states she had been taking a GLP-1 since January and had no symptoms from it but has not taken it in the past 3 weeks PMH: GERD, depression PSHx: Remote laparoscopic gastric bypass, appendectomy, laparoscopy for infertility , back surgery Meds: No antiplt or anticoagulation. Omeprazole, citalopram and GLP-1 though off for 3 weeks Allergies: NKDA Social hx: Nonsmoker, no ETOH use Review of Systems Review of Systems ROS Unobtainable: All systems reviewed & no additional complaints except as documented Meds Home Medications and Allergies Home Medications ?Medication ?Instructions ?Recorded ?Confirmed ?Type citalopram 40 mg tablet (Celexa) 40 mg PO QDAY 08/28/25 08/28/25 History omeprazole 40 mg capsule,delayed 40 mg PO QDAY 08/28/25 08/28/25 History release Allergies Allergy/AdvReac Type Severity Reaction Status Date / Time NKA* Allergy Uncoded 08/27/25 23:11 Exam Vital Signs Temp Pulse Resp BP Pulse Ox O2 Del Method 99.6 F 72 18 116/46 L 94 L Room Air 08/29/25 08:00 08/29/25 08:00 08/29/25 08:00 08/29/25 08:00 08/29/25 08:00 08/29/25 08:00 Constitutional Constitutional: no acute distress Routine Respiratory Exam Respiratory: Present no resp distress Routine Abdominal Exam Abdominal: Present soft and surgical scars (well-healed laparoscopy scars); Absent tenderness or distended Results Results: Laboratory Laboratory results: results reviewed Results: Imaging Imaging narrative: MRCP reviewed CT scan - abdomen: report reviewed and image reviewed US - abdomen: report reviewed Assessment & Plan Plan 60F with history of gastric bypass, GERD presenting with signs and symptoms of gallstone pancreatitis. I explained that surgery is recommended before discharge to avoid recurrent attacks. I also explained benefits/risks of surgery including need for conversion to open, bleeding, infection, injury to nearby structures requiring further procedures which could include major biliary reconstruction which would require transfer to a tertiary hospital, as well as postoperative hernia and diarrhea. All questions were answered and pt is agreeable to proceeding CLD for today, NPO after MN for laparoscopic cholecystectomy, possible open tomorrow 08/30
[2025-08-29 12:00] VITALS: BP 108/55; PULSE 70; PULSE 75; RESP 19; TEMP 37.2; O2SAT 95
--- NOTE | 2025-08-29 13:23 | PC.SS ---
rounding notes: Patient continues on i.v. fluids and i.v. pain meds. D/c plan remains to return home.
[2025-08-29] MEDS: ACETAMINOPHEN 325 MG TABLET 650 MG PO (15:17)
[2025-08-29 16:00] VITALS: BP 122/57; PULSE 67; PULSE 75; RESP 20; TEMP 37.4; O2SAT 92
--- NOTE | 2025-08-29 18:21 | PC.NURSE ---
NOTIFIED DR. SORENSON PT [facility] 55 AT 8:46
--- NOTE | 2025-08-29 18:23 | PC.NURSE ---
NOTIFIED DR. SORENSON PT [facility] 125 AT 09:30
[2025-08-29 20:00] VITALS: BP 106/59; PULSE 63; PULSE 69; RESP 17; TEMP 36.9; O2SAT 97
[2025-08-30] VITALS (16 sets, daily range): BP systolic 109–125; BP diastolic 51–84; PULSE 55–68; RESP 15–97; TEMP 36.1–37.2; O2SAT 94–100; BMI 29.2
[2025-08-30] MEDS: RINGERS LACTATED 1000 ML 1,000 ML 200 ML IV ×2 (02:28→08:15)
[2025-08-30 06:06] LABS: Basophils # (Auto) 0.0 Thou/mm3 (0.0-0.2); Basophils % (Auto) 0 % (0-2.5); Eosinophils # (Auto) 0.3 Thou/mm3 (0.0-0.5); Eosinophils % (Auto) 4 % (0-10); Hematocrit 30.9 % (36.0-46.0); Hemoglobin 10.1 g/dL (12.0-16.0); Immature Granulocytes Auto 0.02 Thou/mm3 (0.00-0.00); Lymphocytes # (Auto) 1.2 Thou/mm3 (1.0-4.8); Lymphocytes % (Auto) 16 % (10-50); Mean Corpuscular HGB Conc 32.7 g/dl (31.0-37.0); Mean Corpuscular Hemoglobin 28.1 pg (25.0-35.0); Mean Corpuscular Volume 86 fL (80-100); Monocytes # (Auto) 0.6 Thou/mm3 (0.0-0.8); Monocytes % (Auto) 8 % (0-12); Neutrophils # (Auto) 5.3 Thou/mm3 (1.8-7.7); Neutrophils % (Auto) 71 % (37-80); Nucleated Red Blood Cell # 0.00 Thou/mm3 (0.00-0.00); Nucleated Red Blood Cell % 0 /100 WBC (0); Platelet Count 192 Thou/mm3 (140-440); RDW Standard Deviation 41.5 fL (36.4-46.3); Red Blood Count 3.60 Miln/mm3 (4.00-5.20); White Blood Count 7.4 Thou/mm3 (3.6-11.0)
[2025-08-30 06:36] LABS: Alanine Aminotransferase 210 U/L (10-49); Albumin, Serum 3.4 gm/dL (3.4-4.8); Albumin/Globulin Ratio 2.3 (1.2-2.2); Alkaline Phosphatase 111 U/L (46-116); Anion Gap 8 (7-16); Aspartate Amino Transferase 90 U/L (0-34); BUN/Creatinine Ratio 10 Ratio (12-20); Bilirubin,Total 0.9 mg/dL (0.3-1.2); Blood Urea Nitrogen < 5 mg/dL (9-23); Calcium 8.3 mg/dL (8.3-10.6); Calcium (Corrected) 8.8 mg/dL (8.5-10.1); Carbon Dioxide 29.4 mMol/L (20.0-31.0); Chloride 108 mMol/L (98-107); Creatinine (Component) 0.5 mg/dL (0.6-1.3); Estimated Creatinine Clearance 118.8 mL/min (>60); Globulin 1.5 gm/dL (2.3-3.5); Glucose 83 mg/dL (74-106); Magnesium 1.7 mg/dL (1.6-2.6); Osmolality,Calculated 284 (275-295); Phosphorous 3.0 mg/dL (2.4-5.1); Potassium 3.6 mMol/L (3.4-5.1); Sodium 145 mMol/L (136-145); Total Protein 4.9 gm/dL (5.7-8.2); eGFR > 60 See Note
--- NOTE | 2025-08-30 09:03 | ESPR_ITS ---
Documentation for date of: 08/30/25 Subjective Subjective Interval history: NAEO. VSS. Denies pain, received 2 dose of IV morphine over past 24 hours. Reports dry cough that developed since hospitalization, denies chills or body aches. Afebrile, no leukocytosis. Exam Vital Signs Temp Pulse Resp BP Pulse Ox O2 Del Method 97.4 F 68 16 117/84 96 Room Air 08/30/25 08:00 08/30/25 08:00 08/30/25 08:00 08/30/25 08:00 08/30/25 08:00 08/30/25 08:00 Narrative Exam General: No acute distress, well nourished Eye: PERRL, EOMI, normal conjunctiva, no scleral icterus HENT: Normocephalic, atraumatic, normal hearing, moist oral mucosa Neck: Supple, non-tender, no JVD, no lymphadenopathy Lungs: Clear to auscultation bilaterally, non-labored respirations, symmetric chest rise, no use of accessory muscles Heart: Normal S1 and S2, no S3 or S4 appreciated. Normal rate and regular rhythm, no murmurs, rubs gallops, or edema. Peripheral pulses intact bilaterally, capillary refill brisk distally Abdomen: Soft, nondistended, TTP of b/l upper quadrants and epigastric region Musculoskeletal: Normal range of motion and strength, no tenderness or swelling Skin: Skin is warm, dry, no rashes or lesions. Neurologic: Alert, awake and oriented x3. CN II-XII grossly intact. No focal neuro deficits. No signs of meningeal irritation noted. Psychiatric: Cooperative, appropriate mood and affect Objective Labs 08/30/25 04:49 08/30/25 04:49 Labs: Laboratory Results - last 24 hr 08/29/25 08/30/25 04:25 04:49 WBC 7.4 RBC 3.60 L Hgb 10.1 L Hct 30.9 L MCV 86 MCH 28.1 MCHC 32.7 RDW Std Deviation 41.5 Plt Count 192 Neut % (Auto) 71 Lymph % (Auto) 16 [place] % (Auto) 8 Eos % (Auto) 4 Baso % (Auto) 0 Neut # (Auto) 5.3 Lymph # (Auto) 1.2 [place] # (Auto) 0.6 Eos # (Auto) 0.3 Baso # (Auto) 0.0 Immature Gran # (Auto) 0.02 H Absolute Nucleated RBC 0.00 Immature Gran % 0 Nucleated RBC % 0 Sodium 145 Potassium 3.6 Chloride 108 H Carbon Dioxide 29.4 Anion Gap 8 BUN < 5 L Creatinine 0.5 L Estim Creat Clear Calc 118.8 eGFR > 60 BUN/Creatinine Ratio 10 L Glucose 83 Calculated Osmolality 284 Calcium 8.3 Corrected Calcium 8.8 Phosphorus 3.0 Magnesium 1.7 Total Bilirubin 0.9 D AST 90 H ALT 210 H Alkaline Phosphatase 111 D Total Protein 4.9 L Albumin 3.4 Globulin 1.5 L Albumin/Globulin Ratio 2.3 H Vitamin B12 418 25-OH Vitamin D Total 15.7 Folate 5.60 Quality Measures Quality Measures none Assessment & Plan Assessment Current Active Medications: Generic Name Dose Route Start Last Admin Trade Name Freq PRN Reason Stop Dose Admin Acetaminophen 650 mg 08/28/25 12:29 Acetaminophen 325 Mg Tablet PO 09/27/25 12:28 Q6H PRN Fever >100.3 Acetaminophen 650 mg 08/28/25 12:29 08/29/25 15:17 Acetaminophen 325 Mg Tablet PO 09/27/25 12:28 650 mg Q6H PRN Administration PAIN SCALE 1-3 (mild Citalopram Hydrobromide 40 mg 08/28/25 12:40 08/30/25 07:59 Citalopram 20 Mg Tablet PO 09/27/25 12:39 Not Given QDAY [facility] Heparin Sodium (Porcine) 5,000 unit 08/28/25 14:00 08/30/25 05:25 Heparin Sod Inj 5000 Unit/Ml Vial SC 09/11/25 13:59 Not Given Q8HR JOYCELYN Lactated Ringer's 1,000 mls @ 200 mls/hr 08/28/25 17:05 08/30/25 08:15 Lactated Ringers IV 09/27/25 17:04 200 mls/hr .Q5H JOYCELYN Administration Morphine Sulfate 2 mg 08/28/25 12:34 08/29/25 22:43 Morphine Sulf Inj 4 Mg/Ml Vial IVP 2 mg Q4HR PRN Administration pain 4-10 Ondansetron HCl 4 mg 08/28/25 12:29 Ondansetron Inj 2 Mg/Ml Inj 2 Ml IVP 09/27/25 12:28 Q6H PRN NAUSEA OR VOMITING Protocol Pantoprazole Sodium 40 mg 08/28/25 12:45 08/30/25 08:14 Pantoprazole Inj 40 Mg Vial IVP 09/27/25 12:44 40 mg QDAY JOYCELYN Administration Pharmacy Consult 1 each 08/28/25 17:05 Pharmacy To Consult Pneumovacc XX 09/27/25 17:04 PRN PRN CONSULT Plan Ms. Jones is a 60 y/o female with PMH GERD, appendectomy and Dilan-en-Y who presented to the ED on 08/28 with RUQ and epigastric pain, N/V x 1 day. Admitted for acute pancreatitis most likely 2/2 cholelithiasis. #Acute pancreatitis #Cholelithiasis #Transaminitis RUQ, epigastric pain, N/V x 1 day AST 763, ALT 322, alk phos 198, T bili 1.7, D bili 1.1, lipase >2500 Lipid panel WNL, no hx EtOH use UDS + opiates (given in ED), EtOH negative Has been taking Retatrutide (triple GLP-1, GIP, and glucagon receptor agonist for obesity) - can cause pancreatitis CT a/p, Abd US, and MRCP showed cholelithiasis w/o cholecystitis, no CBD stones. Acute pancreatitis. Received 2L NS in ED Acute pancreatitis most likely 2/2 cholelithiasis Plan: - Pending cholecystectomy 08/[address] Redding - Morphine 2 mg IV q4h PRN - Zofran PRN - LR 150 mL/hr - CTM symptoms and vitals - Consulted gen surg, Dr. Redding #New onset dry cough CTAB on exam, afebrile, no leukocytosis Plan: - Pending CXR - Incentive spirometer #GERD Plan: - Omeprazole 40 mg IV daily (home med, PO) #Depression Plan: - Citalopram 40 mg daily #Hx Dilan-en-Y Performed >25 years ago Hgb and HCT appropriate, no anemia Plan: - CTM CBC daily #Normocytic anemia i/s/o hx Dilan-en-y Iron panel c/w iron deficiency vs ACD B12, folate, 25-OH vit D WNL Plan: - CTM CBC daily - Can d/c with iron supplementation upon discharge #Electrolyte disturbances Plan: - Replete as needed - Advance diet as tolerated #Hypoglycemia, acute - resolved i/s/o NPO Given amp D50 with resolution of hypoglycemia Plan: - CTM with daily CMP, transitioned to clears Checklist Dispo: Pending cholecystectomy 08/30 Lines: PIV Diet: NPO for cholecystectomy, then clears with advancing as tolerated Bowel Reg: n/a VTE ppx: heparin subQ GI ppx: n/a Pain mgmt: Tylenol PRN, Morphine 2 mg IV q4h PRN Code status: full Plan discussed with Dr. Serafin Traylor MD PGY1 Attending Provider Attestation/Addendum I reviewed labs, imaging, EKG, home medications and prior available records. Face to face evaluation was performed by me. I have personally examined the patient and discussed assessment and plan with the IM team. I reviewed the resident note and agree with the plan with exceptions as below. Biliary pancreatitis Cholelithiasis Transaminitis MRCP showed no choledocholithiasis or dilated CBD Continue IV fluids at high rate Management of nausea/vomiting as needed Management of pain as needed Trend LFTs: Downtrending Consulted surgery for cholecystectomy: Plan for OR on 08/30 N.p.o. after midnight on 08/30
--- NOTE | 2025-08-30 12:49 | PC.NURSE ---
pt to surgery, report to rachana FRIEND
--- NOTE | 2025-08-30 15:01 | ESOP_ITS ---
Date of Procedure 08/30/25 Pre Op Diagnosis Gallstone pancreatitis, cholecystitis Post Op Diagnosis Same Procedure Laparoscopic cholecystectomy Findings Distended gallbladder with stones Procedure Description After discussion of risks and benefits, patient was brought to the operating room, SCDs were placed and general anesthesia was induced. She received preoperative antibiotics and was prepped and draped in usual sterile fashion. After timeout a supraumbilical incision was made with a #15 blade and the skin was elevated with towel clamps. A Veress needle was placed through the incision and proper positioning was confirmed with a drop test. The abdomen was insufflated to 12 mmHg at which point the Veress was exchanged for a 5 mm camera using a Visiport technique. There were no signs of injury from the point of entry. 3 additional ports were placed under direct vision, one 12 mm at the epigastrium, one 5 mm right subcostal and one 5 mm right anterior axillary line. Patient was placed in reverse Trendelenburg. The fundus of the gallbladder was grasped and retracted cephalad and the infundibulum was grasped and retracted laterally. The lower third of the gallbladder was removed from the gallbladder bed using electrocautery and the hepatocystic triangle was cleared of all fat and fibrous tissue using blunt dissection. There was a small branching artery overlying the cystic duct which began bleeding during this process and it was clipped and transected in the usual fashion. The critical view of safety was achieved showing 2 and only 2 structures entering the gallbladder. The cystic duct was noted to be some what dilated but was able to be clipped and transected in the usual fashion. The cystic artery was also clipped and transected in the usual fashion. The gallbladder was removed from the gallbladder bed using electrocautery and hemostasis of the gallbladder bed was achieved with electrocautery and reinforced with Surgicel powder. The specimen was removed in an Endo Catch bag via the epigastric port and the epigastric fascia was closed with 0 Vicryl suture using a Dilshad-Shaniqua. Counts were confirmed correct. Pneumoperitoneum was released and ports were removed under direct vision. Incisions were irrigated and infiltrated with half percent Marcaine for a total of 30 cc. Incisions were closed with 4-0 Monocryl and reinforced with Dermabond. Patient was extubated and brought to PACU in stable condition Pathology / specimen Other (Gallbladder) Estimated Blood Loss 40 Surgeon Aurora Redding MD Surgical Staff Operation Date: 08/30/25 12:45 Case Staff ELECTRIC WIRER: [employer] delivery consultant: Gabriela Nance
[2025-08-30] MEDS: HYDROmorphone INJ 2 MG/ML VIAL 0.5 MG IVP (15:47)
--- NOTE | 2025-08-30 15:48 | SUR.PHASEI ---
1511: Pt received in Pacu via gurney. Report from Rosanne FRIEND and Ryan CORMIER. Pt obtunded. Oral airway in place. Resp even, unlabored. VS stable. Surgical sites x4 to abdomen secured with dermabond. Site dry, clean, intact with no swelling, discoloration. 1520: Oral airway dc'd. Resp even, unlabored. 1547: Pt awake with c/o pain to abdomen. Rates pain level 8/10. VS stable. Resp even, unlabored. Pain medication given per order.
--- NOTE | 2025-08-30 15:56 | PC.SS ---
Rounding Note: Plan is for patient to undergo surgical procedure today. Dr. Redding to perform procedure.
--- NOTE | 2025-08-30 16:09 | SUR.PHASEI ---
1600: Pt resting. Resp even, unlabored. VS stable. Surgical sites remain dry, clean, intact with no swelling, discoloration.
--- NOTE | 2025-08-30 16:45 | PC.NURSE ---
Pt to room. Lap sides to abd CDI x4. Stable vitals
--- NOTE | 2025-08-30 17:00 | XR_ITS ---
EXAMINATION: AP chest single view TECHNIQUE: AP portable semiupright chest single view Date and time: August 30, 2025, 1711 hours INDICATIONS: Coughing today. FINDINGS: Subsegmental atelectasis left base Mild prominence left ventricle Minimal opacity right base at the cardiophrenic angle No pulmonary edema IMPRESSION: Suspicious for early pneumonia right base
[2025-08-30] MEDS: HYDROcodone/APAP 5/325 TABLET 1 TAB PO ×2 (17:49→21:52)
--- NOTE | 2025-08-30 17:53 | SUR.PHASEI ---
1615: Pt resting with no further c/o discomfort. VS stable. Surgical sites remain dry, clean, intact with no swelling, discoloration. Report to Sandra FRIEND 3rd floor. 1620: Pt tranferred to Rm 357 in stable condition.
[2025-08-30] MEDS: HEPARIN SOD INJ 5000 UNIT/ML VIAL SC (21:52)
[2025-08-31] VITALS: BP 120/59; PULSE 61; PULSE 62; RESP 18; TEMP 37.1; O2SAT 91
[2025-08-31 04:00] VITALS: BP 115/64; PULSE 57; PULSE 61; RESP 17; TEMP 36.2; O2SAT 93
[2025-08-31] MEDS: HEPARIN SOD INJ 5000 UNIT/ML VIAL SC (05:17)
[2025-08-31 06:00] VITALS: BMI 28.5
[2025-08-31 06:23] LABS: Basophils # (Auto) 0.0 Thou/mm3 (0.0-0.2); Basophils % (Auto) 0 % (0-2.5); Eosinophils # (Auto) 0.0 Thou/mm3 (0.0-0.5); Eosinophils % (Auto) 0 % (0-10); Hematocrit 31.3 % (36.0-46.0); Hemoglobin 10.4 g/dL (12.0-16.0); Immature Granulocytes Auto 0.04 Thou/mm3 (0.00-0.00); Lymphocytes # (Auto) 0.6 Thou/mm3 (1.0-4.8); Lymphocytes % (Auto) 5 % (10-50); Mean Corpuscular HGB Conc 33.2 g/dl (31.0-37.0); Mean Corpuscular Hemoglobin 28.6 pg (25.0-35.0); Mean Corpuscular Volume 86 fL (80-100); Monocytes # (Auto) 0.8 Thou/mm3 (0.0-0.8); Monocytes % (Auto) 8 % (0-12); Neutrophils # (Auto) 8.9 Thou/mm3 (1.8-7.7); Neutrophils % (Auto) 87 % (37-80); Nucleated Red Blood Cell # 0.00 Thou/mm3 (0.00-0.00); Nucleated Red Blood Cell % 0 /100 WBC (0); Platelet Count 203 Thou/mm3 (140-440); RDW Standard Deviation 41.4 fL (36.4-46.3); Red Blood Count 3.64 Miln/mm3 (4.00-5.20); White Blood Count 10.3 Thou/mm3 (3.6-11.0)
[2025-08-31 06:40] LABS: Alanine Aminotransferase 171 U/L (10-49); Albumin, Serum 3.7 gm/dL (3.4-4.8); Albumin/Globulin Ratio 2.1 (1.2-2.2); Alkaline Phosphatase 100 U/L (46-116); Anion Gap 11 (7-16); Aspartate Amino Transferase 75 U/L (0-34); BUN/Creatinine Ratio 8 Ratio (12-20); Bilirubin,Total 0.9 mg/dL (0.3-1.2); Blood Urea Nitrogen < 5 mg/dL (9-23); Calcium 8.8 mg/dL (8.3-10.6); Calcium (Corrected) 9.0 mg/dL (8.5-10.1); Carbon Dioxide 24.8 mMol/L (20.0-31.0); Chloride 104 mMol/L (98-107); Creatinine (Component) 0.6 mg/dL (0.6-1.3); Estimated Creatinine Clearance 98.0 mL/min (>60); Globulin 1.8 gm/dL (2.3-3.5); Glucose 144 mg/dL (74-106); Magnesium 1.6 mg/dL (1.6-2.6); Osmolality,Calculated 279 (275-295); Phosphorous 3.6 mg/dL (2.4-5.1); Potassium 3.6 mMol/L (3.4-5.1); Sodium 140 mMol/L (136-145); Total Protein 5.5 gm/dL (5.7-8.2); eGFR > 60 See Note
[2025-08-31 06:41] VITALS: PULSE 78; RESP 16; RESP 93
--- NOTE | 2025-08-31 07:14 | PD.RESDS ---
Planned Discharge Date 08/31/25 DS: Providers Provider Date of admission: 08/28/25 12:29 Primary care physician: Dania Meyers MD Admitting Provider: Colby Betancourt MD Attending Provider on Admission: Colby Betancourt MD Consults: 08/28/25 14:01 Consult to General Surgery Stat Comment: Consulting Provider: Aurora Redding Attending Provider on DC: Dr. Malone Discharging Provider: Fauzia Traylor MD DS: Diagnosis Problem List Completed Was Problem List Reviewed/Reconciled?: Yes Hospital Course Hospital Course Hospital course: Hospital Course Ms. Jones is a 60 y/o female with PMH GERD, appendectomy and Dilan-en-Y who presented to the ED on 08/28 with RUQ and epigastric pain x 1 day. Associated with nausea and 6-7 episodes of nonbloody nonbilious vomitng. Last PO intake 08/27 at noon. Physical exam, labs, and imaging c/w acute pancreatitis 2/2 cholelithiasis. Labs significant for AST 763, ALT 322, alk phos 198, T bili 1.7, D bili 1.1, lipase >2500. CT a/p showed cholelithiasis, gallbladder wall thickening, pancreatitis, midly enlarged CBD. Abdominal US showed calculous cholecystitis. MRCP was performed due to suspicion for cholangitis; showed cholelithiasis, no cholecystitis, positive for acute pancreatitis, no common hepatic or CBD stones, no cholangitis pattern. Patient was managed with NPO, aggressive IV fluids, and pain management with morphine IV PRN. On 08/30 Dr. Redding performed laparoscopic cholecystectomy without complications. Due to patient's normocytic anemia i/s/o hx of Dilan-en-Y, additional labs for vitamin deficiency were performed. B12, folate, and 25-OH vitamin D were WNL. Patient developed dry cough during hospitalization. CXR showed possible early right base pneumonia. However, patient remained afebrile throughout hospitalization. Patient initially had mild leukocytosis, but this resolved on hospital day #2. Patient hemodynamically stable. Labs reviewed and stable. Patient stable and medically cleared for discharge. Diagnoses #Acute pancreatitis #Cholelithiasis #Transaminitis #New onset dry cough #GERD #Depression #Hx Dilan-en-Y #Normocytic anemia Discharge Instructions - Follow up with PCP within 1 week of discharge, if you do not have a primary care physician you can come see us at the [facility] by calling [phone] - Follow up with Dr. Redding in 1-2 weeks outpatient - Continue rest of medications as previously prescribed - Return to the ED or call EMS if symptoms return and/or worsen Fauzia Traylor MD PGY1 Time Spent with Patient Time attestation: Total time spent providing and/or coordinating discharge services: Time spent: Greater than 30 minutes Exam Vital Signs Temp Pulse Resp BP Pulse Ox O2 Del Method O2 Flow Rate 97.2 F 78 16 115/64 93 L Room Air 2 08/31/25 04:00 08/31/25 06:41 08/31/25 06:41 08/31/25 04:00 08/31/25 04:00 08/31/25 04:00 08/30/25 16:05 Narrative Exam General: No acute distress, well nourished Eye: PERRL, EOMI, normal conjunctiva, no scleral icterus HENT: Normocephalic, atraumatic, normal hearing, moist oral mucosa Neck: Supple, non-tender, no JVD, no lymphadenopathy Lungs: Clear to auscultation bilaterally, non-labored respirations, symmetric chest rise, no use of accessory muscles Heart: Normal S1 and S2, no S3 or S4 appreciated. Normal rate and regular rhythm, no murmurs, rubs gallops, or edema. Peripheral pulses intact bilaterally, capillary refill brisk distally Abdomen: Soft, nondistended, TTP RUQ Musculoskeletal: Normal range of motion and strength, no tenderness or swelling Skin: Skin is warm, dry, no rashes or lesions. Laparoscopic incisions clean without wound dehiscence appreciated Neurologic: Alert, awake and oriented x3. CN II-XII grossly intact. No focal neuro deficits. No signs of meningeal irritation noted. Psychiatric: Cooperative, appropriate mood and affect Discharge Plan Plan Patient Disposition: HOME (Self Care) Patient condition on transfer: Stable Care Plan Goals: - Follow up with Primary Care Physician within 1 week of discharge, if you do not have a primary care physician you can come see us at the [facility] by calling [phone] - Follow up with Dr. Redding in 1-2 weeks outpatient - Take Doxycycline 100 mg twice daily for 5 days - Take [place] (hydrocodone-acetaminophen) up to twice a day as needed for severe pain - Continue rest of medications as previously prescribed - Return to the Emergency Department or call Emergency Medical Services ([phone]) if symptoms return and/or worsen Prescriptions/Referrals Prescriptions/Med Rec: New doxycycline hyclate 100 mg capsule 100 mg PO BID 5 Days Qty: 10 0RF hydrocodone-acetaminophen 5-325 mg tablet 1 tab PO BID MDD 10 mg-650 mg PRN (Reason: pain (scale score 7-10)) 5 Days Qty: 10 0RF Continued omeprazole 40 mg capsule,delayed release(DR/EC) 40 mg PO QDAY citalopram [Celexa] 40 mg tablet 40 mg PO QDAY Referrals: Aurora Redding MD [Physician, General Surgery] Dania Meyers MD [Primary Care Provider, Internal Medicine] Patient/Caregiver Discharge Instructions Other Discharge Activity Instructions:: You may resume showering in 2 days, on Sat 09/01 At that time it is okay to get incisions wet, pat dry after Your incisions have skin glue on them which will fall off on its own and does not need to be replaced Your stitches will not need to be removed During the surgery we fill your abdomen with air in order to see the structures. Some of this air tends to linger and cause pain that is referred to the shoulder as well as pain with deep breaths. This will get better with time. Being out of bed and walking will help the air to absorb faster If you develop worsening pain, nausea/vomiting, fever or signs of jaundice please seek care in the ER For any nonemergent concern please feel free to call the office at [phone]. We are open Wednesday through Wednesday 8 to 4 PM with a break from 12 to 1 PM Education Materials: After Gallbladder Surgery, Pancreatitis Acute Dc, Preventing Surgical Site Infections Print Language: Japanese Stand Alone Forms: Bailey Award Info., Patient Portal Info Letter Discharge Order Discharge Orders: Discharge (Routine); Ordered 08/31/25 Ordered By: Fauzia Traylor Quality Discharge Quality Measures VTE prophylaxis Attestestation Attestation I discussed with and supervised the resident physician who took care of this patient. I agree with the assessment and discharge plan as above. Patient should follow-up with her primary care provider. Return to the ER for recurrent symptoms
[2025-08-31 08:00] VITALS: BP 103/56; PULSE 57; PULSE 64; RESP 17; TEMP 36.7; O2SAT 94
[2025-08-31] MEDS: CITALOPRAM 20 MG TABLET 40 MG PO (09:08)
[2025-08-31 12:00] VITALS: BP 117/65; PULSE 68; PULSE 78; RESP 18; TEMP 37.1; O2SAT 95
--- NOTE | 2025-08-31 15:12 | PC.SS ---
rounding note: Patient to d/c home today. No d/c needs.
== END 2025-08-31 13:13 | disposition home or self-care (01) | DRG 417 ==
LOC: SERX 08-28 06:07 → SERHOLD 08-28 13:12 → S3NX 08-28 16:53
PROVIDERS: Physician Assistant; Student in an Organized Health Care Education/Training Program; Surgery; Admitting Provider Student in an Organized Health Care Education/Training Program; Emergency Provider Emergency Medicine; PCP Internal Medicine; Visit Provider Student in an Organized Health Care Education/Training Program
PROC: 0FT44ZZ Resection of Gallbladder, Percutaneous Endoscopic Approach (ICD-10-PCS; CPT 47562; principal; 2025-08-30 12:30)
DX: K80.10 Calculus of gallbladder with chronic cholecystitis without obstruction (principal); J18.9 Pneumonia, unspecified organism; K85.10 Biliary acute pancreatitis without necrosis or infection; K21.9 Gastro-esophageal reflux disease without esophagitis; F32.A Depression, unspecified; E16.2 Hypoglycemia, unspecified; E66.9 Obesity, unspecified; D64.9 Anemia, unspecified; Z98.84 Bariatric surgery status; Z68.28 Body mass index [BMI] 28.0-28.9, adult; Z23 Encounter for immunization; Z90.49 Acquired absence of other specified parts of digestive tract; Z79.899 Other long term (current) drug therapy
CPT/HCPCS: 36415; 71045; 74177; 74181; 76705; 80048; 80053; 80061; 80307; 80320; 81001; 82248; 82306; 82607; 82728; 82746; 83540; 83550; 83690; 83735; 84100; 85025; 85046; 85610; 85730; 90677; 90686; 93005; 93225; 96361; 96374; 96375; 96376; 99284; A4217; A4649; J0694; J0780; J1100; J1171; J1644; J1885; J2060; J2250; J2270; J2371; J2405; J2470; J2704; J2765; J3010; J3480; J3490; J7030; J7120; J7999; Q9967; A9270; G0480; J1596; J9060

== ENCOUNTER 2025-09-02 22:29 | Inpatient (IN) | payer BC, SELFPAY ==
[2025-09-02 22:31] VITALS: BMI 27.4
[2025-09-02 22:36] VITALS: BP 91/55; PULSE 98; RESP 20; TEMP 36.8; O2SAT 98
--- NOTE | 2025-09-02 22:38 | XR_ITS ---
EXAMINATION: PA chest single view TECHNIQUE: Upright PA chest single view Date and time: 2024, 11:00 p.m., comparison August 30, 2025 INDICATIONS: Generalized abdominal pain nausea and fever today. FINDINGS: Subsegmental atelectasis and possible mild pneumonia in the right mid and lower lung zone Normal heart size Left lung clear IMPRESSION: Subsegmental atelectasis and possible mild pneumonia in the right mid and lower lung zone, clinical correlation advised
--- NOTE | 2025-09-02 22:39 | PD.EDRME ---
Rapid Medical Screening Exam RME Arrival date/time: 09/02/25 22:29 This is a case of 60-year-old female with history of lap rebecca last Fatimah came in in the emergency room due to generalized abdominal pain nausea vomiting and fever due to worsening of the symptoms this patient decided to sought consult here in the emergency room Chief Complaint: General Adult/Misc Complain Time Seen by Provider: 09/02/25 22:38 Vital signs: Vital Signs Temperature 98.3 F 09/02/25 22:36 Pulse Rate 98 09/02/25 22:36 Respiratory Rate 20 09/02/25 22:36 Blood Pressure 91/55 L 09/02/25 22:36 Pulse Oximetry (%) 98 09/02/25 22:36 Oxygen Delivery Method Room Air 09/02/25 22:36 Exam: Generalized tenderness no guarding no rebound no rigidity patient have mild dehydration lungs sound is clear Clinical Impression: Fever abdominal pain
--- NOTE | 2025-09-02 22:55 | PD.EDADULT ---
ED General RME/HPI General Chief complaint: General Adult/Misc Complain Stated complaint: FEVER, ABD PAIN, LUNG PAIN, BACK PAIN, PASSED OUT Time Seen by Provider: 09/02/25 22:38 Arrival date/time: 09/02/25 22:29 RME / HPI RME / HPI narrative: 09/02/25 22:29 This is a case of 60-year-old female with history of lap rebecca last Wednesday came in in the emergency room due to generalized abdominal pain nausea vomiting and fever due to worsening of the symptoms this patient decided to sought consult here in the emergency room Dr. Garcia?[facility] Main ED Evaluation: 60yo female who had a recent cholecystectomy by Dr. Redding on 08/30/25 presents to the ED for multiple complaints. Patient was discharged 2 days ago, reporting she was feeling decent and was able to use the incentive spirometer. This morning, patient began having intermittent fever, dizziness, nausea, productive cough, and worsening epigastric pain. Patient did have a brief syncopal episode earlier today, but was guided to the floor by her son. Patient states she is unable to take a deep breath due to her abdominal pain. Denies any vomiting or any other associated symptoms. NKA. Related Data Home Medications ?Medication ?Instructions ?Recorded ?Confirmed citalopram 40 mg tablet (Celexa) 40 mg PO QDAY 08/28/25 08/28/25 omeprazole 40 mg capsule,delayed 40 mg PO QDAY 08/28/25 08/28/25 release Previous Rx's ?Medication ?Instructions ?Recorded doxycycline hyclate 100 mg capsule 100 mg PO BID community acquired 08/31/25 pneumonia 5 days #10 caps hydrocodone 5 mg-acetaminophen 325 1 tab PO BID PRN pain (scale score 08/31/25 mg tablet 7-10) 5 days #10 tabs Allergies Allergy/AdvReac Type Severity Reaction Status Date / Time No Known Allergies Allergy Verified 09/02/25 22:31 Review of Systems Review of Systems Systems Reviewed: All systems reviewed, normal except as documented ED Exam Narrative Physical exam: Generally patient is alert somewhat ill-appearing, heart regular rate and rhythm, lungs clear to auscultation equal bilaterally, abdomen soft bowel sounds present nondistended epigastric and right upper quadrant abdominal tenderness without rebound. Laparoscopy wounds showed no evidence of discharge or surrounding erythema. Neurologic exam shows [place] Coma Scale of 15, skin is warm pale and dry Course Course Course Narrative: CXR is ordered for determining the etiology of fever and cough. Quality Measures none Orders Category Date Time Status Bedside COVID-19 Antigen Test NOW Care 09/02/25 22:[address] Screening NOW Care 09/02/25 22:[address] abdomen pelvis w con Stat Exams 09/02/25 22:[address] angio chest Stat Exams 09/02/25 22:56 Taken XR chest 1V Stat Exams 09/02/25 22:38 Completed CBC Stat Lab 09/02/25 23:00 Completed Comprehensive Metabolic Panel Stat Lab 09/02/25 23:00 Completed FLU A&B [Influenza A & B Rapid Panel] Stat Lab 09/02/25 22:49 Completed HCG Qualitative,Urine Stat Lab 09/02/25 23:00 Completed Lipase Stat Lab 09/02/25 23:00 Completed Urinalysis Stat Lab 09/02/25 23:00 Completed Morphine* Inj Med 09/02/25 22:56 Discontinued 4 mg IVP X1 ONE Piper/Tazo 3.375 gm Premix [Zosyn] Med 09/03/25 02:16 Active 3.375 gm in 50 ml IV X1 Ringers Lactated 1000 ml [Lactated Ringers] 1,000 ml Med 09/02/25 22:56 Discontinued IV 999 mls/hr Vancomycin Inj 1,000 mg Med 09/03/25 02:30 Active Sodium Chloride 0.9% 250 ml [Ns] 250 ml IV X1 Vancomycin Pharmacy to Dose Med 09/03/25 09:00 Pending 1 each IV QDAY Vital Signs Vital signs: Vital Signs Temperature 98.3 F 09/02/25 22:36 Pulse Rate 98 09/02/25 22:36 Respiratory Rate 20 09/02/25 22:36 Blood Pressure 91/55 L 09/02/25 22:36 Pulse Oximetry (%) 98 09/02/25 22:36 Oxygen Delivery Method Room Air 09/02/25 22:36 Critical Care Time Critical Care Time Critical Care Time: Yes Total Critical Care Time (min.): 35 Attestation: Excluding other billable procedures Discharge Plan Plan Patient Disposition: Admit Acute Care w/in Hospital Prescriptions/Referrals Prescriptions/Med Rec: No Action omeprazole 40 mg capsule,delayed release(DR/EC) 40 mg PO QDAY citalopram [Celexa] 40 mg tablet 40 mg PO QDAY doxycycline hyclate 100 mg capsule 100 mg PO BID 5 Days Qty: 10 0RF hydrocodone-acetaminophen 5-325 mg tablet 1 tab PO BID MDD 10 mg-650 mg PRN (Reason: pain (scale score 7-10)) 5 Days Qty: 10 0RF Referrals: No Primary/Family,Physician [Primary Care Provider] - In 1 week Problem List Clinical Impression: Intra-abdominal abscess Patient/Caregiver Discharge Instructions Print Language: Northern Irish Stand Alone Forms: Bailey Award Info., Patient Portal Info Letter MDM Narrative MDM hospital course (for use when minimal MDM required): Scribe Attestation: 09/02/25 - Radha Gonzalez am scribing for and in the presence of Dr. Garcia. LFTs and lipase have essentially come back to normal. White count is 12,900. CT angio of the chest showed no pulmonary emboli. It did show a right sided pleural effusion. CT scan down the abdomen pelvis with IV contrast shows what appears to be a developing abscess of the gallbladder fossa. Patient was given pharmacy dose vancomycin IV as well as Zosyn 3.375 g IV. Case was discussed with the patient's surgeon, Dr. Redding who asked for the hospitalist to admit the patient and she will see the patient today. I interpreted all labs. Patient was hydrated with 1 L of IV normal saline. Clinical Information Provided by: patient Medical Records reviewed [facility] (Per chart review, patient was admitted here on 08/28/25 for gallstone pancreatitis.) Meds/Rx considered, not ordered None Labs/Rad/Tests considered, not ordered None Chronic Illness/Social Conditions Explain: Hx GERD Labs Labs: interpreted by me Imaging Imaging interpretation: interpreted by me Imaging Interpretation(s): [place] [facility] Report Signed Patient: SEVERIANO ARREOLA [facility]. Record#: [id number] Birthdate: 1965 Age/Sex: 60 / F Location: [facility] Attending Dr: Ordering Physician: Jessica Deluca Date of Service: 09/02/25 Procedure(s): XR chest 1V Accession Number(s): [id number] cc: Berto Meeks MD; NO PRIMARY/FAMILY,PHYSICIAN; Deluca,Noralda Q [employer]ER OPERATOR~ EXAMINATION: PA chest single view TECHNIQUE: Upright PA chest single view Date and time: 2024, 11:00 p.m., comparison August 30, 2025 INDICATIONS: Generalized abdominal pain nausea and fever today. FINDINGS: Subsegmental atelectasis and possible mild pneumonia in the right mid and lower lung zone Normal heart size Left lung clear IMPRESSION: Subsegmental atelectasis and possible mild pneumonia in the right mid and lower lung zone, clinical correlation advised Dictated By: Berto Meeks MD Signed By: <Electronically signed by Berto Meeks MD in OV> 09/03/25 0000 [facility] Preliminary Report Draft Patient: SEVERIANO ARREOLA [facility]. Record#: [id number] Birthdate: 1965 Age/Sex: 60 / F Location: [facility] Attending Dr: Ordering Physician: Date of Service: Procedure(s): Accession Number(s): cc: ~ CT angiogram of the chest with intravenous contrast (axial sections with sagittal and coronal reformats, 3D/MIP reconstructed images) September 02, 2025 2306 hours Clinical History: PE No prior study is available for comparison. Findings: There is no filling defect in pulmonary artery divisions to suggest pulmonary thromboembolism. The mediastinum demonstrates no evidence of mass. Subcentimeter mediastinal and hilar lymph nodes noted. The thoracic aorta appears unremarkable, without evidence of aneurysm. Coronary artery calcification is absent. There is trace pericardial effusion. Scarring versus streaky atelectasis is seen in the right lower lobe. There is small right pleural effusion with underlying atelectasis. Left basilar dependent atelectasis is present. No evidence of pneumothorax. Mild degenerative changes are identified in the spine. Impression: No evidence of pulmonary thromboembolism. Small right pleural effusion. Other findings as described above. Please refer to the report on CT abdomen and pelvis submitted separately. Report Electronically Signed By: Jairo Pittman 09/03/2025 1:57:03 AM [EST] [facility] Preliminary Report Draft Patient: SEVERIANO ARREOLA [facility]. Record#: [id number] Birthdate: 1965 Age/Sex: 60 / F Location: [facility] Attending Dr: Ordering Physician: Date of Service: Procedure(s): Accession Number(s): cc: ~ CT scan of the abdomen and pelvis with intravenous contrast (axial sections with sagittal and coronal reformats) September 02, 2025 2306 hours Clinical History: Abdominal pain, recent surgery of laparoscopic cholecystectomy 5 days ago Reference is made to the prior report dated August 28, 2025. No prior images are available at the time of interpretation of the study. Findings: The gallbladder is surgically absent. Complex fluid collection (25 HU) measuring 4 (CC) x 7 x 9 (Trans) cm with air loculi is seen in the gallbladder fossa. The pancreas, spleen, adrenals and kidneys appear unremarkable. No evidence of bowel obstruction. Gastric bypass changes noted. Fluid filled small bowel loops are noted. The cecum, ascending and transverse colon are fluid filled with air fluid levels. There is mild wall thickening of the distal ascending colon, likely reactive. There are colonic diverticula without evidence of colonic diverticulitis. The urinary bladder is not well distended. Possible posterior intramural uterine fibroid noted. Small amount of free fluid is seen in the pelvis, likely postoperative. The abdominal aorta and its branches demonstrate atheromatous calcification without evidence of aneurysm. Mild degenerative changes are identified in the spine. There is posterior spinal fusion involving L5 and S1 vertebra. Impression: No evidence to suggest bowel obstruction. Status post-cholecystectomy. Complex postoperative collection with air loculi in the gallbladder fossa, raising concern for evolving abscess. Recommend clinical correlation. Fluid filled small bowel loops and large bowel as described, likely ileus. However, the possibility of enterocolitis cannot be excluded. Recommend clinical correlation. Other findings as described above. Please refer to the report on CT chest submitted separately. Report Electronically Signed By: Jairo Pittman 09/03/2025 2:13:15 AM [EST] Medication Administration(s) Medication Administration History Piperacillin/Tazobactam/Dextrose (Zosyn) 3.375 gm in 50 mls @ 100 mls/hr IV X1 ONE; Protocol Stop: 09/03/25 02:45 Vancomycin HCl 1,000 mg/ (Sodium Chloride) 250 mls @ 120 mls/hr IV X1 ONE Stop: 09/03/25 04:34 Pharmacy Consult (Vancomycin Pharmacy To Dose 1 Each Each) 1 each IV QDAY JOYCELYN Stop: 10/03/25 08:59 Discontinued Medications Lactated Ringer's (Lactated Ringers) 1,000 mls @ 999 mls/hr IV .Q1H1M ONE Stop: 09/02/25 23:56 Last Infusion: 09/03/25 00:15 Dose: Infused Documented By: Admin: 09/02/25 23:19 Dose: 999 mls/hr Documented By: CLINTON Morphine Sulfate (Morphine Sulf Inj 4 Mg/Ml Vial) 4 mg IVP X1 ONE Stop: 09/02/25 22:57 Last Admin: 09/02/25 23:20 Dose: 4 mg Documented By: CLINTON see above Diagnosis Differential Diagnosis ED Complaint MDM: See MDM
--- NOTE | 2025-09-02 22:56 | XR_ITS ---
Examination: CT abdomen with intravenous contrast CT pelvis with intravenous contrast 2-D coronal reconstructions 2-D sagittal reconstructions Date and time of exam: September 02, 2025, at 12:29 a.m. INDICATION: Status post cholecystectomy 3 days ago with abdominal pain. CTDI: vol (mGy) 10.1 DLP: (mGycm) 600 Technique: Multiple axial sections of the abdomen and pelvis have been obtained. 64 slice high-resolution scanner used. 3 mm axial sections have been obtained, post intravenous injection 100 cc Isovue-370 2-D sagittal, coronal reconstructions obtained. Low dose protocols were performed. One or more of the following dose reduction techniques were used; automated exposure control, adjustment of the mA and/or KV according to patient size, use of iterative reconstruction technique. Findings: Pneumoperitoneum Air-fluid collection in the gallbladder fossa, 7.2 x 5.8 cm consistent with abscess Spleen is not enlarged Gastric sutures No pancreatic or adrenal mass No hydronephrosis Fluid distended small bowel loops, small bowel sutures Mild free fluid in the pelvis Anteverted uterus Mildly distended urinary bladder Transpedicular lumbar fusion L5-S1 with satisfactory alignment IMPRESSION: 7.2 x 5.8 cm air and fluid abscess in the gallbladder fossa, amenable to catheter drainage CT-guided as clinically warranted
--- NOTE | 2025-09-02 22:56 | XR_ITS ---
Examination: CTA chest with intravenous contrast 2-D reconstructions 3-D reconstructions, vascular Date and time of exam: September 02, 2025, at 0028 hours INDICATIONS: Shortness of breath today with chest pain, history chest surgery 3 days ago CTDI: vol (mGy) 9.84 DLP: (mGycm) 336 Technique: Multiple axial sections of the thorax have been obtained. 3 mm slice thickness, from below the hemidiaphragms to above the apices of the lungs. Mediastinal and lung density settings have been obtained. 2-D sagittal and coronal reconstructions. 3-D angiographic renderings, 3-D volume renderings, 3D post processing, vascular maximum intensity projections obtained. Contrast administered is 100 cc Isovue-370. Low dose protocols were performed. One or more of the following dose reduction techniques were used; automated exposure control, adjustment of the mA and/or KV according to patient size, use of iterative reconstruction technique. Findings: No thoracic aortic aneurysm dilatation or dissection No pulmonary artery emboli No pathologic mediastinal lymphadenopathy Atelectasis and/or early pneumonia right base with a small right pleural effusion Pneumoperitoneum, presumably postoperative status Moderate osteopenia Please see the CT abdomen report today IMPRESSION: Negative for pulmonary artery emboli Atelectasis and/or early pneumonia right base with small right pleural effusion
[2025-09-02 22:58] VITALS: BP 100/68; PULSE 95; RESP 18; TEMP 36.9; O2SAT 96
[2025-09-02 22:59] VITALS: BMI 27.4
[2025-09-02 23:15] LABS: Influenza A Ag Negative; Influenza B Ag Negative
[2025-09-02] MEDS: RINGERS LACTATED 1000 ML 1,000 ML 999 ML IV (23:19)
[2025-09-02] MEDS: MORPHINE SULF INJ 4 MG/ML VIAL IVP (23:20)
[2025-09-02 23:23] LABS: Collection Type, Urine Clean Catch
[2025-09-02 23:49] LABS: Alanine Aminotransferase 70 U/L (10-49); Albumin, Serum 3.7 gm/dL (3.4-4.8); Albumin/Globulin Ratio 2.1 (1.2-2.2); Alkaline Phosphatase 116 U/L (46-116); Anion Gap 12 (7-16); Aspartate Amino Transferase 32 U/L (0-34); BUN/Creatinine Ratio 7 Ratio (12-20); Bilirubin,Total 1.0 mg/dL (0.3-1.2); Blood Urea Nitrogen < 5 mg/dL (9-23); Calcium 8.7 mg/dL (8.3-10.6); Calcium (Corrected) 8.9 mg/dL (8.5-10.1); Carbon Dioxide 27.0 mMol/L (20.0-31.0); Chloride 104 mMol/L (98-107); Creatinine (Component) 0.7 mg/dL (0.6-1.3); Estimated Creatinine Clearance 79.4 mL/min (>60); Globulin 1.8 gm/dL (2.3-3.5); Glucose 101 mg/dL (74-106); Lipase 50 U/L (12-53); Osmolality,Calculated 282 (275-295); Potassium 3.1 mMol/L (3.4-5.1); Sodium 143 mMol/L (136-145); Total Protein 5.5 gm/dL (5.7-8.2); eGFR > 60 See Note
[2025-09-03] VITALS (17 sets, daily range): BP systolic 97–136; BP diastolic 44–73; PULSE 68–132; RESP 18–96; TEMP 36.2–37.4; O2SAT 90–100; BMI 27.4
[2025-09-03] LABS: Basophils # (Auto) 0.1 Thou/mm3 (0.0-0.2); Basophils % (Auto) 0 % (0-2.5); Bilirubin,Urine Negative (Negative); Blood,Urine Negative (Negative); Clarity,Urine Clear (Clear/Hazy); Color,Urine Lt-Yellow (Lt Yel-Yel); Eosinophils # (Auto) 0.1 Thou/mm3 (0.0-0.5); Eosinophils % (Auto) 0 % (0-10); Glucose, Urine Negative (Negative); HCG Qualitative,Urine Negative; Hematocrit 31.8 % (36.0-46.0); Hemoglobin 10.8 g/dL (12.0-16.0); Immature Granulocytes Auto 0.09 Thou/mm3 (0.00-0.00); Ketones,Urine Negative (Negative); Leukocyte Esterase,Urine Negative (Negative); Lymphocytes # (Auto) 1.3 Thou/mm3 (1.0-4.8); Lymphocytes % (Auto) 10 % (10-50); Mean Corpuscular HGB Conc 34.0 g/dl (31.0-37.0); Mean Corpuscular Hemoglobin 29.2 pg (25.0-35.0); Mean Corpuscular Volume 86 fL (80-100); Monocytes # (Auto) 0.8 Thou/mm3 (0.0-0.8); Monocytes % (Auto) 6 % (0-12); Neutrophils # (Auto) 10.7 Thou/mm3 (1.8-7.7); Neutrophils % (Auto) 83 % (37-80); Nitrite,Urine Negative (Negative); Nucleated Red Blood Cell # 0.00 Thou/mm3 (0.00-0.00); Nucleated Red Blood Cell % 0 /100 WBC (0); PH,Urine 6.5 (5.0-7.0); Platelet Count 320 Thou/mm3 (140-440); Protein,Urine Negative (Neg - Trace); RBC,Urine 1 /hpf (0-3); RDW Standard Deviation 41.7 fL (36.4-46.3); Red Blood Count 3.70 Miln/mm3 (4.00-5.20); Specific Gravity,Urine 1.007 (1.001-1.035); Squamous Epithelial Cell,Urine 4 /hpf (0-5); Urobilinogen,Urine Negative mg/dL (0.0-1.0); WBC,Urine 6 /hpf (0-5); White Blood Count 12.9 Thou/mm3 (3.6-11.0)
--- NOTE | 2025-09-03 01:53 | PRELIM_ITS ---
CT angiogram of the chest with intravenous contrast (axial sections with sagittal and coronal reformats, 3D/MIP reconstructed images) September 02, 2025 2306 hours Clinical History: PE No prior study is available for comparison. Findings: There is no filling defect in pulmonary artery divisions to suggest pulmonary thromboembolism. The mediastinum demonstrates no evidence of mass. Subcentimeter mediastinal and hilar lymph nodes noted. The thoracic aorta appears unremarkable, without evidence of aneurysm. Coronary artery calcification is absent. There is trace pericardial effusion. Scarring versus streaky atelectasis is seen in the right lower lobe. There is small right pleural effusion with underlying atelectasis. Left basilar dependent atelectasis is present. No evidence of pneumothorax. Mild degenerative changes are identified in the spine. Impression: No evidence of pulmonary thromboembolism. Small right pleural effusion. Other findings as described above. Please refer to the report on CT abdomen and pelvis submitted separately. Report Electronically Signed By: Jairo Pittman 09/03/2025 1:57:03 AM [EST]
--- NOTE | 2025-09-03 02:13 | PRELIM_ITS ---
CT scan of the abdomen and pelvis with intravenous contrast (axial sections with sagittal and coronal reformats) September 02, 2025 2306 hours Clinical History: Abdominal pain, recent surgery of laparoscopic cholecystectomy 5 days ago Reference is made to the prior report dated August 28, 2025. No prior images are available at the time of interpretation of the study. Findings: The gallbladder is surgically absent. Complex fluid collection (25 HU) measuring 4 (CC) x 7 x 9 (Trans) cm with air loculi is seen in the gallbladder fossa. The pancreas, spleen, adrenals and kidneys appear unremarkable. No evidence of bowel obstruction. Gastric bypass changes noted. Fluid filled small bowel loops are noted. The cecum, ascending and transverse colon are fluid filled with air fluid levels. There is mild wall thickening of the distal ascending colon, likely reactive. There are colonic diverticula without evidence of colonic diverticulitis. The urinary bladder is not well distended. Possible posterior intramural uterine fibroid noted. Small amount of free fluid is seen in the pelvis, likely postoperative. The abdominal aorta and its branches demonstrate atheromatous calcification without evidence of aneurysm. Mild degenerative changes are identified in the spine. There is posterior spinal fusion involving L5 and S1 vertebra. Impression: No evidence to suggest bowel obstruction. Status post-cholecystectomy. Complex postoperative collection with air loculi in the gallbladder fossa, raising concern for evolving abscess. Recommend clinical correlation. Fluid filled small bowel loops and large bowel as described, likely ileus. However, the possibility of enterocolitis cannot be excluded. Recommend clinical correlation. Other findings as described above. Please refer to the report on CT chest submitted separately. Report Electronically Signed By: Jairo Pittman 09/03/2025 2:13:15 AM [EST]
[2025-09-03] MEDS: PIPER/TAZO 3.375 GM PREMIX 3.375 GM/50 ML BAG IV ×3 (02:50→21:51)
--- NOTE | 2025-09-03 02:59 | ESHP_ITS ---
Documentation for date of: 09/03/25 [facility] History of Present Illness History of present illness: 60-year-old female with a history of GERD, appendectomy, Dilan-en-Y gastric bypass, and 4 days post-op from a cholecystectomy performed by Dr. Redding on 08/30/25. She felt decent at discharge and was using her incentive spirometer, but now reports intermittent fever, dizziness, nausea, productive cough with yellow sputum, and worsening epigastric pain, which is aggravated by deep breathing. She also experienced a brief syncopal episode earlier today, during which she lost consciousness for a few seconds, but was caught by her son and immediately regained alertness. She denies vomiting or other associated symptoms, but her abdominal pain prevents her from taking a deep breath. The patient has had limited oral intake, consuming only mashed potatoes yesterday, and reports no appetite. However, she has been maintaining fluid intake and has had no nausea or vomiting since surgery. She also mentions that she does not like to use hydrocodone because it keeps her awake at night. ED course: Initial vitals include T 98.3, BP 91/55, HR 98, RR 20, SpO2 98% room air. Notable labs include WBC 12.9, hemoglobin 10.8, potassium 3.0, magnesium 1.4, LFTs normal except ALT elevated 59. CT angiogram of the chest shows no evidence of PE, small right pleural effusion. CT abdomen (prelim read) shows no evidence of bowel obstruction, complex postop collection with air loculated in the gallbladder fossa, fluid-filled small and large bowel loops. Patient received LR 2 L, Zosyn x1, Vanco x 1, and morphine 4 mg IV. Past medical history: As stated above. Past surgical history: Appendectomy, Dilan-en-Y, cholecystectomy 08/30/25 Allergies: NKDA Social history: No alcohol use, no smoking, no illicit drug use. Patient admitted for intra-abdominal abscess pending surgery evaluation. Review of Systems Review of Systems Narrative Review of Systems: All systems reviewed negative unless stated otherwise above. Exam Vital Signs Temp Pulse Resp BP Pulse Ox O2 Del Method 98.5 F 68 18 111/56 L 97 Room Air 09/03/25 00:58 09/03/25 00:58 09/03/25 00:58 09/03/25 00:58 09/03/25 00:58 09/03/25 00:58 Narrative Exam General: AOx3, mild distress, able to speak full sentences, Spanish speaking HEENT: NC/AT, mucous membranes moist, bilateral sclera anicteric Cardiovascular: regular rate and rhythm, S1/S2 present, no murmurs appreciated Pulmonary: clear to auscultation bilaterally, no rales/rhonchi/wheezes Abdominal: soft, moderate tenderness in the epigastric region and right upper quadrant, distended, rebound tenderness, normal bowel sounds present Musculoskeletal: normal ROM, no peripheral edema Skin: warm and dry, intact, no rashes, Neuro: CN II-XII intact, no focal deficits Results: Labs 09/05/25 04:50 09/05/25 04:50 Labs: Short CBC 09/02/25 Range/Units 23:00 WBC 12.9 H (3.6-11.0) Thou/mm3 Hgb 10.8 L (12.0-16.0) g/dL Hct 31.8 L (36.0-46.0) % Plt Count 320 D (140-440) Thou/mm3 BMP 09/02/25 23:00 Sodium 143 Potassium 3.1 L D Chloride 104 Carbon Dioxide 27.0 BUN < 5 L Creatinine 0.7 Glucose 101 Calcium 8.7 Liver Function 09/02/25 Range/Units 23:00 Total Bilirubin 1.0 (0.3-1.2) mg/dL AST 32 (0-34) U/L ALT 70 H (10-49) U/L Alkaline Phosphatase 116 (46-116) U/L Albumin 3.7 (3.4-4.8) gm/dL Urine 09/02/25 Range/Units 23:00 Urine Color Lt-Yellow (Lt Yel-Yel) Urine Clarity Clear (Clear/Hazy) Urine pH 6.5 (5.0-7.0) Ur Specific [place] 1.007 (1.001-1.035) Urine Protein Negative (Neg - Trace) Urine Glucose (UA) Negative (Negative) Quality Measures Quality Measures VTE prophylaxis Medications Home Medications and Allergies Home Medications ?Medication ?Instructions ?Recorded ?Confirmed ?Type citalopram 40 mg tablet (Celexa) 40 mg PO QDAY 5 09/03/25 History omeprazole 40 mg capsule,delayed 40 mg PO QDAY 5 09/03/25 History release Allergies Allergy/AdvReac Type Severity Reaction Status Date / Time No Known Allergies Allergy Verified 09/02/25 22:31 Visit Medications Acetaminophen (Acetaminophen 325 Mg Tablet) 650 mg PO Q6H PRN PRN Reason: PAIN (1-3) OR FEVER > 100.4 Stop: 10/03/25 02:48 Vancomycin HCl 1,000 mg/ (Sodium Chloride) 250 mls @ 120 mls/hr IV X1 ONE Stop: 09/03/25 04:34 Lactated Ringer's (Lactated Ringers) 1,000 mls @ 100 mls/hr IV .Q10H JOYCELYN Stop: 09/03/25 12:59 Potassium Chloride (Kcl Ivpb) 10 meq in 100 mls @ 100 mls/hr IV Q1H JOYCELYN Stop: 09/03/25 06:59 Ciprofloxacin/Dextrose (Cipro Ivpb) 400 mg in 200 mls @ 200 mls/hr IV Q12HR JOYCELYN Stop: 09/10/25 08:59 Metronidazole (Flagyl 500 Mg Iv) 500 mg in 100 mls @ 200 mls/hr IV Q8HR JOYCELYN Stop: 09/10/25 05:59 Morphine Sulfate (Morphine Sulf Inj 4 Mg/Ml Vial) 2 mg IVP Q4HR PRN PRN Reason: PAIN SCALE 7-10 (Severe Stop: 09/08/25 02:48 Ondansetron HCl (Ondansetron Inj 2 Mg/Ml Inj 2 Ml) 4 mg IVP Q6H PRN; Protocol PRN Reason: NAUSEA OR VOMITING Stop: 10/03/25 02:48 Pantoprazole Sodium (Pantoprazole Inj 40 Mg Vial) 40 mg IVP QDAY JOYCELYN Stop: 10/03/25 08:59 Sennosides (Senna Tablet) 1 tab PO QDAY PRN; Protocol PRN Reason: constipation Stop: 10/03/25 02:48 Discontinued Medications Lactated Ringer's (Lactated Ringers) 1,000 mls @ 999 mls/hr IV .Q1H1M ONE Stop: 09/02/25 23:56 Last Infusion: 09/03/25 00:15 Dose: Infused Piperacillin/Tazobactam/Dextrose (Zosyn) 3.375 gm in 50 mls @ 100 mls/hr IV X1 ONE; Protocol Stop: 09/03/25 02:45 Last Admin: 09/03/25 02:50 Dose: 100 mls/hr Morphine Sulfate (Morphine Sulf Inj 4 Mg/Ml Vial) 4 mg IVP X1 ONE Stop: 09/02/25 22:57 Last Admin: 09/02/25 23:20 Dose: 4 mg Pharmacy Consult (Vancomycin Pharmacy To Dose 1 Each Each) 1 each IV QDAY JOYCELYN Stop: 10/03/25 08:59 Assessment & Plan Plan 60-year-old female with history of GERD, appendectomy, Dilan-en-Y, and most recently 4 days post-op from a cholecystectomy performed by Dr. Redding on 08/30/25, admitted for intra-abdominal abscess pending surgical evaluation. #Intra-abdominal abscess #?Community-acquired pneumonia Patient is 4 days post-op from a cholecystectomy performed by Dr. Redding on 08/30/25 Patient complains of intermittent fever, dizziness, nausea, productive cough with yellow sputum, and worsening epigastric pain, which is exacerbated by deep breathing. CT abdomen (prelim read) shows no evidence of bowel obstruction, complex postop collection with air loculated in the gallbladder fossa, fluid-filled small and large bowel loops. CXR shows subsegmental atelectasis and possible mild pneumonia in the right mid and lower lung zone WBC 11.8 Plan ? General Surgery consulted, Dr. Redding aware, to see in a.m. ? Zosyn IV to cover both intra-abdominal abscess and potential community- acquired pneumonia ? N.p.o. ? LR IVF ? Follow-up blood culture ? Incentive spirometry ? Morphine 2 mg IV every 4 hours as needed #Syncopal episode 2/2 Most likely due to dehydration and vasovagal response. Brief syncopal episode earlier today but was caught and guided to the floor by her son. Lost consciousness for a few seconds and immediately regained consciousness and was not disoriented Patient is not complaining of cardiac symptoms and has no other concerning features at this time Plan ? Orthostatic vitals ? Correct electrolytes ? IV fluids ? Defer to the day team regarding pursuing echocardiogram #Hypokalemia #Hypomagnesemia At admission potassium was 3.0 and magnesium was 1.4 Plan ? IV potassium chloride 40 mEq given, replete as necessary ? IV magnesium sulfate 4 g given, replete as necessary #Severe constipation Since last admission (08/31) to today has had 1 bowel movement with the need for self manual disimpaction Plan ? High fiber and stool softeners once no longer n.p.o. #GERD ? Protonix 40 IV daily #Depression Patient takes citalopram 40 mg daily ? Restart when not n.p.o. #History of Dilan-en-Y Performed >25 years ago ? Monitor hemoglobin with daily labs Health Maintenance: Diet: N.p.o. GI prophylaxis: Protonix 40 IV daily DVT prophylaxis: SCDs Antibiotics: Zosyn CODE STATUS: Full Disposition: [facility] Case discussed with my attending Dr. Silverman, and senior resident, Dr. Vanita Browne MD PGY-1 Attending Provider Attestation/Addendum After examination of the patient and review of the clinical data I feel that this patient needs admission to the hospital for further treatment/evaluation. Plan of care discussed with patient and is in agreement. I Qiana Silverman MD, attest that I was physically present for lund portions of evaluation, and examined patient, labs and imagings and plan of care were discussed with IM residents team, and I agree with the findings and plans documented above.
[2025-09-03] MEDS: RINGERS LACTATED 1000 ML 1,000 ML 100 ML IV (03:14)
[2025-09-03] MEDS: Vancomycin Inj 1,000 MG in SODIUM CHLORIDE 0.9% 250 ML 250 ML 120 MG IV (03:14)
[2025-09-03] MEDS: POTASSIUM CHL 10 mEq IVPB 10 MEQ/100 ML BAG 100 MEQ IV ×2 (03:15→04:43)
[2025-09-03 03:35] LABS: Basophils # (Auto) 0.0 Thou/mm3 (0.0-0.2); Basophils % (Auto) 0 % (0-2.5); Eosinophils # (Auto) 0.0 Thou/mm3 (0.0-0.5); Eosinophils % (Auto) 0 % (0-10); Hematocrit 28.7 % (36.0-46.0); Hemoglobin 9.7 g/dL (12.0-16.0); Immature Granulocytes Auto 0.07 Thou/mm3 (0.00-0.00); Lymphocytes # (Auto) 1.5 Thou/mm3 (1.0-4.8); Lymphocytes % (Auto) 12 % (10-50); Mean Corpuscular HGB Conc 33.8 g/dl (31.0-37.0); Mean Corpuscular Hemoglobin 28.8 pg (25.0-35.0); Mean Corpuscular Volume 85 fL (80-100); Monocytes # (Auto) 0.7 Thou/mm3 (0.0-0.8); Monocytes % (Auto) 6 % (0-12); Neutrophils # (Auto) 9.5 Thou/mm3 (1.8-7.7); Neutrophils % (Auto) 80 % (37-80); Nucleated Red Blood Cell # 0.00 Thou/mm3 (0.00-0.00); Nucleated Red Blood Cell % 0 /100 WBC (0); Platelet Count 286 Thou/mm3 (140-440); RDW Standard Deviation 41.2 fL (36.4-46.3); Red Blood Count 3.37 Miln/mm3 (4.00-5.20); White Blood Count 11.8 Thou/mm3 (3.6-11.0)
[2025-09-03 03:45] LABS: Partial Thromboplastin Time 32.9 Seconds (22.0-36.0)
[2025-09-03 03:51] LABS: Alanine Aminotransferase 59 U/L (10-49); Albumin, Serum 3.3 gm/dL (3.4-4.8); Albumin/Globulin Ratio 2.1 (1.2-2.2); Alkaline Phosphatase 103 U/L (46-116); Anion Gap 11 (7-16); Aspartate Amino Transferase 26 U/L (0-34); BUN/Creatinine Ratio 8 Ratio (12-20); Bilirubin,Total 0.8 mg/dL (0.3-1.2); Blood Urea Nitrogen < 5 mg/dL (9-23); Calcium 8.4 mg/dL (8.3-10.6); Calcium (Corrected) 9.0 mg/dL (8.5-10.1); Carbon Dioxide 28.4 mMol/L (20.0-31.0); Chloride 104 mMol/L (98-107); Creatinine (Component) 0.6 mg/dL (0.6-1.3); Estimated Creatinine Clearance 92.6 mL/min (>60); Globulin 1.6 gm/dL (2.3-3.5); Glucose 109 mg/dL (74-106); Magnesium 1.4 mg/dL (1.6-2.6); Osmolality,Calculated 283 (275-295); Potassium 3.0 mMol/L (3.4-5.1); Sodium 143 mMol/L (136-145); Total Protein 4.9 gm/dL (5.7-8.2); eGFR > 60 See Note
[2025-09-03] MEDS: MORPHINE SULF INJ 4 MG/ML VIAL 2 MG IVP ×3 (04:43→21:51)
--- NOTE | 2025-09-03 04:44 | PC.NURSE ---
2 mg Morphine given at 0443 am.
[2025-09-03] MEDS: Magnesium Sulfate 4 GM Ivpb 4 GM/50 ML BAG IV (05:00)
[2025-09-03] MEDS: POTASSIUM CHL 10 mEq IVPB 10 MEQ/100 ML BAG 50 MEQ IV ×2 (06:04→09:21)
--- NOTE | 2025-09-03 08:34 | ESPR_ITS ---
<Statement entered by Sharif Donnelly MD - 09/03/25 20:35> Patient is seen at bedside. Patient underwent laparoscopic cholecystectomy on 08/30/2025 and was discharged home on 08/31, however patient is readmitted overnight after having fevers chills and right upper quadrant abdominal pain. Abdominal CT confirmed air-fluid collection in the gallbladder fossa. Patient is to undergo drainage today by IR. Otherwise patient is stable no other complaints. Patient was seen and examined by me personally. I have directly supervised and reviewed documentation by the team resident and agree with its findings. ------- Plan of care was discussed with the attending, Dr. Teddy Donnelly, PGY-2 Documentation for date of: 09/03/25 Subjective Subjective Interval history: Patient admitted overnight for abscess in gallbladder fossa. Dr. Redding consulted, admitted for CT guided intra-abdominal abscess drain placement and IV abx. Patient evaluated at bedside, reports RUQ, epigastric, and LUQ abdominal pain limiting her ability to take deep breaths. Productive cough has somewhat improved today. Patient had one hard BM since previous d/c. Denies urinary sx. Exam Vital Signs Temp Pulse Resp BP Pulse Ox O2 Del Method 99.1 F 79 18 111/54 L 92 L Room Air 09/03/25 07:59 09/03/25 07:59 09/03/25 07:59 09/03/25 07:59 09/03/25 07:59 09/03/25 07:59 Narrative Exam General: No acute distress, well nourished Eye: PERRL, EOMI, normal conjunctiva, no scleral icterus HENT: Normocephalic, atraumatic, normal hearing, moist oral mucosa Neck: Supple, non-tender, no JVD, no lymphadenopathy Lungs: Clear to auscultation bilaterally, non-labored respirations, symmetric chest rise, no use of accessory muscles Heart: Normal S1 and S2, no S3 or S4 appreciated. Normal rate and regular rhythm, no murmurs, rubs gallops, or edema. Peripheral pulses intact bilaterally, capillary refill brisk distally Abdomen: Soft, moderate tenderness in the epigastric region and left/right upper quadrant, distended, rebound tenderness, gallbladder fossa drain in place Musculoskeletal: Normal range of motion and strength, no tenderness or swelling Skin: Skin is warm, dry, no rashes or lesions. Neurologic: Alert, awake and oriented x3. CN II-XII grossly intact. No focal neuro deficits. No signs of meningeal irritation noted. Psychiatric: Cooperative, appropriate mood and affect Objective Labs 09/05/25 04:50 09/05/25 04:50 Labs: Laboratory Results - last 24 hr 09/02/25 09/02/25 09/03/25 22:49 23:00 03:10 WBC 12.9 H 11.8 H RBC 3.70 L 3.37 L Hgb 10.8 L 9.7 L Hct 31.8 L 28.7 L MCV 86 85 MCH 29.2 28.8 MCHC 34.0 33.8 RDW Std Deviation 41.7 41.2 Plt Count 320 D 286 D Neut % (Auto) 83 H 80 Lymph % (Auto) 10 12 [place] % (Auto) 6 6 Eos % (Auto) 0 0 Baso % (Auto) 0 0 Neut # (Auto) 10.7 H 9.5 H Lymph # (Auto) 1.3 1.5 [place] # (Auto) 0.8 0.7 Eos # (Auto) 0.1 0.0 Baso # (Auto) 0.1 0.0 Immature Gran # (Auto) 0.09 H 0.07 H Absolute Nucleated RBC 0.00 0.00 Immature Gran % 1 H 1 H Nucleated RBC % 0 0 APTT 32.9 D Sodium 143 143 Potassium 3.1 L D 3.0 L Chloride 104 104 Carbon Dioxide 27.0 28.4 Anion Gap 12 11 BUN < 5 L < 5 L Creatinine 0.7 0.6 Estim Creat Clear Calc 79.4 92.6 eGFR > 60 > 60 BUN/Creatinine Ratio 7 L 8 L Glucose 101 109 H Calculated Osmolality 282 283 Calcium 8.7 8.4 Corrected Calcium 8.9 9.0 Magnesium 1.4 L Total Bilirubin 1.0 0.8 AST 32 26 ALT 70 H 59 H Alkaline Phosphatase 116 103 Total Protein 5.5 L 4.9 L Albumin 3.7 3.3 L Globulin 1.8 L 1.6 L Albumin/Globulin Ratio 2.1 2.1 Lipase 50 Ur Collection Type Clean Catch Urine Color Lt-Yellow Urine Clarity Clear Urine pH 6.5 Ur Specific [place] 1.007 Urine Protein Negative Urine Glucose (UA) Negative Urine Ketones Negative Urine Blood Negative Urine Nitrite Negative Urine Bilirubin Negative Urine Urobilinogen (Auto) Negative Ur Leukocyte Esterase Negative Urine RBC 1 Urine WBC 6 H Ur Squamous Epith Cells 4 Urine Bacteria None Urine HCG, Qual Negative Influenza A (Rapid) Negative Influenza B (Rapid) Negative Quality Measures Quality Measures none Assessment & Plan Assessment Current Active Medications: Generic Name Dose Route Start Last Admin Trade Name Freq PRN Reason Stop Dose Admin Acetaminophen 650 mg 09/03/25 02:49 Acetaminophen 325 Mg Tablet PO 10/03/25 02:48 Q6H PRN PAIN (1-3) OR FEVER > 100.4 Lactated Ringer's 1,000 mls @ 100 mls/hr 09/03/25 03:00 09/03/25 03:14 Lactated Ringers IV 09/03/25 12:59 100 mls/hr .Q10H JOYCELYN Administration Piperacillin/Tazobactam/Dextrose 3.375 gm in 50 mls @ 12.5 mls/hr 09/03/25 14:00 Zosyn IV 09/10/25 13:59 Q8HR JOYCELYN Protocol Potassium Phosphate 15 mmol in 250 mls @ 62.5 mls/hr 09/03/25 08:32 Pot Phos 15 Mmol In Ns 250 Ml IV 09/03/25 16:31 Q4H JOYCELYN Potassium Phosphate 15 mmol in 250 mls @ 62.5 mls/hr 09/03/25 08:34 Pot Phos 15 Mmol In Ns 250 Ml IV 09/03/25 16:33 Q4H JOYCELYN Magnesium Sulfate 4 gm in 50 mls @ 12.5 mls/hr 09/03/25 08:34 Magnesium Sulfate Ivpb IV 09/03/25 12:33 X1 ONE Melatonin 6 mg 09/03/25 21:00 Melatonin 3 Mg Tablet PO 10/03/25 20:59 HS JOYCELYN Morphine Sulfate 2 mg 09/03/25 02:49 09/03/25 04:43 Morphine Sulf Inj 4 Mg/Ml Vial IVP 09/08/25 02:48 2 mg Q4HR PRN Administration PAIN SCALE 7-10 (Severe Ondansetron HCl 4 mg 09/03/25 02:49 Ondansetron Inj 2 Mg/Ml Inj 2 Ml IVP 10/03/25 02:48 Q6H PRN NAUSEA OR VOMITING Protocol Pantoprazole Sodium 40 mg 09/03/25 09:00 09/03/25 08:05 Pantoprazole Inj 40 Mg Vial IVP 10/03/25 08:59 40 mg QDAY JOYCELYN Administration Sennosides 1 tab 09/03/25 02:49 Senna Tablet PO 10/03/25 02:48 QDAY PRN constipation Protocol Plan 60-year-old female with history of GERD, appendectomy, Dilan-en-Y, and most recently 4 days post-op from a cholecystectomy performed by Dr. Redding on 08/30/25, admitted for intra-abdominal abscess pending surgical evaluation. #Intra-abdominal abscess Patient is 4 days post-op from a cholecystectomy performed by Dr. Redding on 08/30/25 Patient complains of intermittent fever, dizziness, nausea, productive cough with yellow sputum, and worsening epigastric pain, which is exacerbated by deep breathing CT abdomen (prelim read) shows no evidence of bowel obstruction, complex postop collection with air loculated in the gallbladder fossa, fluid-filled small and large bowel loops WBC 11.8 Gallbladder fossa drain in place, placed 09/[address] Redding Plan ? General Surgery consulted, Dr. Redding, appreciate recs ? Zosyn IV (09/03-) ? Clears ? LR IVF ? Pending blood cx, wound cx ? Incentive spirometry ? See below for pain mgmt #Syncopal episode Most likely due to dehydration and vasovagal response Brief syncopal episode, lasted several seconds, no head strike, immediately regained consciousness Patient is not complaining of cardiac symptoms and has no other concerning features at this time Plan: ? Orthostatic vitals ? Correct electrolytes ? IV fluids ? Defer to the day team regarding pursuing echocardiogram #Electrolyte disturbances #Hypokalemia #Hypomagnesemia Plan: - Replete PRN - CTM with daily CMP #Severe constipation Since last admission (08/31) to today has had 1 bowel movement with the need for self manual disimpaction Plan: ? senna PO daily #GERD Plan: ? Protonix 40 IV daily #Depression Plan: ? Citalopram 40 mg PO daily (home med) #History of Dilan-en-Y Performed >25 years ago Plan: ? Monitor hemoglobin with daily labs Checklist Dispo: IV abx Lines: PIV Diet: clears Bowel Reg: senna daily VTE ppx: heparin subQ GI ppx: pantoprazole 40 mg IV daily Pain mgmt: Tylenol PO PRN, oxycodone/APA 5 q6h, morphine 2 mg q4h PRN Code status: full Plan discussed with Dr. Janusz Donnelly and Dr. Teddy Traylor MD PGY1 Attending Provider Attestation/Addendum Patient seen and examined at bedside. Agree with assessment and plan as documented above. Ayaan Espinal MD
--- NOTE | 2025-09-03 08:49 | XR_ITS ---
Examination: CT-guided percutaneous placement abscess drainage catheter gallbladder fossa CT abdomen without intravenous contrast INDICATIONS: Post cholecystectomy this week with abscess in the gallbladder fossa on CT abdomen/pelvis study yesterday Date and time of procedure: September 03, 2025, 11:53 p.m. Informed consent provided. A timeout was completed verifying correct patient, procedure, site and positioning. Technique: Axial 3 mm sections were obtained for localization of the abscess in the gallbladder fossa Appropriate area is marked. The patient's site was prepped and draped in sterile fashion Maximal sterile barrier technique utilized, including hand hygiene Local anesthesia was obtained with 1% lidocaine. Low dose protocols were performed. One or more of the following dose reduction techniques were used; automated exposure control, adjustment of the mA and/or KV according to patient size, use of iterative reconstruction technique. Findings: Utilizing CT fluoroscopic guidance 5 Guatemalan catheter percutaneously placed in the gallbladder fossa abscess 0.35 wire guide introduced through the catheter followed by dilators and a 6 Guatemalan abscess drainage catheter in proper position under CT guidance Patient appears in stable condition during this procedure. At completion of the procedure, the patient is in satisfactory condition. Estimated blood loss 2 cc Complete pathology report to follow. Impression: Successful percutaneous placement abscess drainage catheter in the gallbladder fossa 10 cc purulent material withdrawn and sent to the laboratory for culture and sensitivity
--- NOTE | 2025-09-03 08:50 | PD.SURCONS ---
HPI Consult details History of present illness: 60F with history of gastric bypass, GERD who was hospitalized last week with gallstone pancreatitis s/p lap rebecca 08/30/25 readmitted with abdominal pain and fever. Pt reports she had been feeling well at home initially after discharge but yesterday felt RUQ pain worsened, she preferred not to take norco as it was keeping her awake. She has also noted epigastric pain that worsens with deep breaths and pt feels it is different from previous surgeries. Pain associated with subjective fever and decreased appetite, and yesterday she had a syncopal episode prompting her to seek care in ER. Since admission she has had Tmax 99.1, labs show WBC 11.8 and normal LFTs, with CT showing a fluid collection in the gallbladder Review of Systems Review of Systems ROS Unobtainable: All systems reviewed & no additional complaints except as documented Meds Home Medications and Allergies Home Medications ?Medication ?Instructions ?Recorded ?Confirmed ?Type citalopram 40 mg tablet (Celexa) 40 mg PO QDAY 08/28/25 09/03/25 History omeprazole 40 mg capsule,delayed 40 mg PO QDAY 08/28/25 09/03/25 History release Allergies Allergy/AdvReac Type Severity Reaction Status Date / Time No Known Allergies Allergy Verified 09/02/25 22:31 Exam Vital Signs Temp Pulse Resp BP Pulse Ox O2 Del Method 99.1 F 79 18 111/54 L 92 L Room Air 09/03/25 07:59 09/03/25 07:59 09/03/25 07:59 09/03/25 07:59 09/03/25 07:59 09/03/25 07:59 Constitutional Constitutional: no acute distress Routine Respiratory Exam Respiratory: Present no resp distress Routine Abdominal Exam Abdominal: Present soft, tenderness (mild RUQ tenderness) and surgical scars (incisions c/d/i); Absent distended, rebound or guarding Results Results: Laboratory Laboratory results: results reviewed Results: Imaging CT scan - abdomen: report reviewed and image reviewed Assessment & Plan Plan 60F with history of gastric bypass, GERD who was hospitalized last week with gallstone pancreatitis s/p lap rebecca 08/30/25 readmitted with abdominal pain and fever, findings of gallbladder fluid collection which may represent abscess. I explained to pt that she can undergo percutaneous aspiration/drain placement to address this fluid collection however it may not relieve the symptom she is feeling of pain with deep breaths. Pt expressed understanding and is agreeable to proceeding Appreciate IR percutaneous drainage Low fat diet after procedure Continue abx
[2025-09-03 09:28] LABS: INR 1.1 (0.9-1.3); Prothrombin Time 11.2 Seconds (9.0-12.2)
--- NOTE | 2025-09-03 10:27 | PC.NURSE ---
pt leaving for IR now
[2025-09-03 10:28] LABS: Potassium 3.3 mMol/L (3.4-5.1)
[2025-09-03] MEDS: fentaNYL CIT INJ 50 mCg/ML AMP 2ML 75 MCG IVP (12:02)
[2025-09-03] MEDS: LIDOCAINE INJ PF 1% 30 ML VIAL 7 ML EPID (12:15)
--- NOTE | 2025-09-03 12:46 | PC.NURSE ---
Pt back from IR IV meds resumed
[2025-09-03] MEDS: ONDANSETRON INJ 2 MG/ML INJ 2 ML 4 MG IVP (13:23)
--- NOTE | 2025-09-03 15:34 | PC.SS ---
Patient is alert/oriented. Patient was able to verify demographics. Patient was admitted for intra-abdominal abcess. Patient is independent with ADL's. No DME. Patient resides with her and her mother in law and 28 year old son. Patient had chest tube placed today. PCP: Dr. Hutson. Last appt. was 3 months ago. Pharmacy: [facility] medical decision maker: , Marc, [phone]
[2025-09-03] MEDS: MELATONIN 3 MG TABLET 6 MG PO (21:51)
[2025-09-03] MEDS: HEPARIN SOD INJ 5000 UNIT/ML VIAL SC (21:52)
[2025-09-04] VITALS (10 sets, daily range): BP systolic 98–118; BP diastolic 45–60; PULSE 68–86; RESP 16–95; TEMP 36.4–37.1; O2SAT 90–96
--- NOTE | 2025-09-04 00:38 | PC.NURSE ---
Dr. Browne notified that the abscess gram stain result is in.
[2025-09-04] MEDS: MORPHINE SULF INJ 4 MG/ML VIAL 2 MG IVP (02:15)
--- NOTE | 2025-09-04 02:18 | PC.NURSE ---
Accessed pt's chart to assist main RN. 2 mg of morphine given at 0215.
[2025-09-04 06:00] LABS: Basophils # (Auto) 0.1 Thou/mm3 (0.0-0.2); Basophils % (Auto) 0 % (0-2.5); Eosinophils # (Auto) 0.3 Thou/mm3 (0.0-0.5); Eosinophils % (Auto) 2 % (0-10); Hematocrit 28.8 % (36.0-46.0); Hemoglobin 9.5 g/dL (12.0-16.0); INR 1.1 (0.9-1.3); Immature Granulocytes Auto 0.10 Thou/mm3 (0.00-0.00); Lymphocytes # (Auto) 1.3 Thou/mm3 (1.0-4.8); Lymphocytes % (Auto) 11 % (10-50); Mean Corpuscular HGB Conc 33.0 g/dl (31.0-37.0); Mean Corpuscular Hemoglobin 28.8 pg (25.0-35.0); Mean Corpuscular Volume 87 fL (80-100); Monocytes # (Auto) 0.8 Thou/mm3 (0.0-0.8); Monocytes % (Auto) 6 % (0-12); Neutrophils # (Auto) 10.1 Thou/mm3 (1.8-7.7); Neutrophils % (Auto) 80 % (37-80); Nucleated Red Blood Cell # 0.00 Thou/mm3 (0.00-0.00); Nucleated Red Blood Cell % 0 /100 WBC (0); Platelet Count 341 Thou/mm3 (140-440); Prothrombin Time 11.3 Seconds (9.0-12.2); RDW Standard Deviation 43.4 fL (36.4-46.3); Red Blood Count 3.30 Miln/mm3 (4.00-5.20); White Blood Count 12.6 Thou/mm3 (3.6-11.0)
[2025-09-04 06:12] LABS: Alanine Aminotransferase 43 U/L (10-49); Albumin, Serum 3.0 gm/dL (3.4-4.8); Albumin/Globulin Ratio 1.8 (1.2-2.2); Alkaline Phosphatase 111 U/L (46-116); Anion Gap 10 (7-16); Aspartate Amino Transferase 24 U/L (0-34); BUN/Creatinine Ratio 10 Ratio (12-20); Bilirubin,Total 0.6 mg/dL (0.3-1.2); Blood Urea Nitrogen < 5 mg/dL (9-23); Calcium 7.7 mg/dL (8.3-10.6); Calcium (Corrected) 8.5 mg/dL (8.5-10.1); Carbon Dioxide 28.1 mMol/L (20.0-31.0); Chloride 105 mMol/L (98-107); Creatinine (Component) 0.5 mg/dL (0.6-1.3); Estimated Creatinine Clearance 114.8 mL/min (>60); Globulin 1.7 gm/dL (2.3-3.5); Glucose 121 mg/dL (74-106); Osmolality,Calculated 283 (275-295); Phosphorous 2.9 mg/dL (2.4-5.1); Potassium 3.0 mMol/L (3.4-5.1); Sodium 143 mMol/L (136-145); Total Protein 4.7 gm/dL (5.7-8.2); eGFR > 60 See Note
[2025-09-04] MEDS: PIPER/TAZO 3.375 GM PREMIX 3.375 GM/50 ML BAG IV (06:12)
[2025-09-04] MEDS: HEPARIN SOD INJ 5000 UNIT/ML VIAL SC ×3 (06:15→22:13)
[2025-09-04] MEDS: CITALOPRAM 20 MG TABLET 40 MG PO (08:29)
--- NOTE | 2025-09-04 08:46 | ESPR_ITS ---
<Statement entered by Garland Velez MD - 09/10/25 15:20> I reviewed above note and agree with findings and plans. I have also personally examined the patient with medicine team and went over assessment and plan with medical team including internet marketing consultant and resident physician. <Statement entered by Sharif Donnelly MD - 09/04/25 19:31> Pt is seen at bedside, s/p TANYA drain placed. There is approximately 25cc of purulent output. Cultures grew GNR and pt is started on rocephin. labs were significant for hypokalemia, and 80 meq of K is repleted. Patient was seen and examined by me personally. I have directly supervised and reviewed documentation by the team resident and agree with its findings. ------- Plan of care was discussed with the attending, Dr. Agustin Donnelly, PGY-2 Documentation for date of: 09/04/25 Subjective Subjective Interval history: NAEO. Patient reports improved RUQ pain. 20 cc TANYA drain output overnight. Exam Vital Signs Temp Pulse Resp BP Pulse Ox O2 Del Method O2 Flow Rate 98.6 F 79 16 98/55 L 94 L Room Air 3 09/04/25 07:47 09/04/25 07:47 09/04/25 07:47 09/04/25 07:47 09/04/25 07:47 09/04/25 07:47 09/03/25 12:15 Narrative Exam General: No acute distress, well nourished Eye: PERRL, EOMI, normal conjunctiva, no scleral icterus HENT: Normocephalic, atraumatic, normal hearing, moist oral mucosa Neck: Supple, non-tender, no JVD, no lymphadenopathy Lungs: Clear to auscultation bilaterally, non-labored respirations, symmetric chest rise, no use of accessory muscles Heart: Normal S1 and S2, no S3 or S4 appreciated. Normal rate and regular rhythm, no murmurs, rubs gallops, or edema. Peripheral pulses intact bilaterally, capillary refill brisk distally Abdomen: Soft, moderate tenderness in the epigastric region and left/right upper quadrant, distended, rebound tenderness, gallbladder fossa drain in place Musculoskeletal: Normal range of motion and strength, no tenderness or swelling Skin: Skin is warm, dry, no rashes or lesions. Neurologic: Alert, awake and oriented x3. CN II-XII grossly intact. No focal neuro deficits. No signs of meningeal irritation noted. Psychiatric: Cooperative, appropriate mood and affect Objective Labs 09/04/25 04:34 09/04/25 04:34 Labs: Laboratory Results - last 24 hr 09/03/25 09/03/25 09/04/25 03:10 09:41 04:34 WBC 12.6 H RBC 3.30 L Hgb 9.5 L Hct 28.8 L MCV 87 MCH 28.8 MCHC 33.0 RDW Std Deviation 43.4 Plt Count 341 D Neut % (Auto) 80 Lymph % (Auto) 11 [place] % (Auto) 6 Eos % (Auto) 2 Baso % (Auto) 0 Neut # (Auto) 10.1 H Lymph # (Auto) 1.3 [place] # (Auto) 0.8 Eos # (Auto) 0.3 Baso # (Auto) 0.1 Immature Gran # (Auto) 0.10 H Absolute Nucleated RBC 0.00 Immature Gran % 1 H Nucleated RBC % 0 PT 11.2 11.3 INR 1.1 1.1 Sodium 143 Potassium 3.3 L 3.0 L Chloride 105 Carbon Dioxide 28.1 Anion Gap 10 BUN < 5 L Creatinine 0.5 L Estim Creat Clear Calc 114.8 eGFR > 60 BUN/Creatinine Ratio 10 L Glucose 121 H Calculated Osmolality 283 Calcium 7.7 L Corrected Calcium 8.5 Phosphorus 2.9 Total Bilirubin 0.6 AST 24 ALT 43 Alkaline Phosphatase 111 Total Protein 4.7 L Albumin 3.0 L Globulin 1.7 L Albumin/Globulin Ratio 1.8 Quality Measures Quality Measures none Assessment & Plan Assessment Current Active Medications: Generic Name Dose Route Start Last Admin Trade Name Freq PRN Reason Stop Dose Admin Acetaminophen 650 mg 09/03/25 13:11 Acetaminophen 325 Mg Tablet PO 10/03/25 13:10 Q4HR PRN Pain Scale 1-3 (Mild or fever Citalopram Hydrobromide 40 mg 09/04/25 09:00 09/04/25 08:29 Citalopram 20 Mg Tablet PO 10/04/25 08:59 40 mg QDAY JOYCELYN Administration Heparin Sodium (Porcine) 5,000 unit 09/03/25 22:00 09/04/25 06:15 Heparin Sod Inj 5000 Unit/Ml Vial SC 09/17/25 21:59 5,000 unit Q8HR JOYCELYN Administration Piperacillin/Tazobactam/Dextrose 3.375 gm in 50 mls @ 12.5 mls/hr 09/03/25 14:00 09/04/25 06:12 Zosyn IV 09/10/25 13:59 12.5 mls/hr Q8HR JOYCELYN Administration Protocol Melatonin 6 mg 09/03/25 21:00 09/03/25 21:51 Melatonin 3 Mg Tablet PO 10/03/25 20:59 6 mg HS JOYCELYN Administration Morphine Sulfate 2 mg 09/03/25 02:49 09/04/25 02:15 Morphine Sulf Inj 4 Mg/Ml Vial IVP 09/08/25 02:48 2 mg Q4HR PRN Administration PAIN SCALE 7-10 (Severe Ondansetron HCl 4 mg 09/03/25 02:49 09/03/25 13:23 Ondansetron Inj 2 Mg/Ml Inj 2 Ml IVP 10/03/25 02:48 4 mg Q6H PRN Administration NAUSEA OR VOMITING Protocol Oxycodone/Acetaminophen 1 tab 09/03/25 13:11 Oxycodone/Apap 5/325 Tablet PO 09/08/25 13:10 Q6HR PRN PAIN SCALE 4-6 (Moderate Pantoprazole Sodium 40 mg 09/03/25 09:00 09/04/25 08:29 Pantoprazole Inj 40 Mg Vial IVP 10/03/25 08:59 40 mg QDAY JOYCELYN Administration Sennosides 1 tab 09/03/25 02:49 Senna Tablet PO 10/03/25 02:48 QDAY PRN constipation Protocol Plan 60-year-old female with history of GERD, appendectomy, Dilan-en-Y, and most recently 4 days post-op from a cholecystectomy performed by Dr. Redding on 08/30/25, admitted for intra-abdominal abscess pending surgical evaluation. #Intra-abdominal abscess Patient is 4 days post-op from a cholecystectomy performed by Dr. Redding on 08/30/25 Patient complains of intermittent fever, dizziness, nausea, productive cough with yellow sputum, and worsening epigastric pain, which is exacerbated by deep breathing CT abdomen (prelim read) shows no evidence of bowel obstruction, complex postop collection with air loculated in the gallbladder fossa, fluid-filled small and large bowel loops WBC 11.8 Gallbladder fossa drain in place, placed 09/[address] Redding Zosyn IV (09/03-09/04) Wound cx growing GNR Plan ? General Surgery consulted, Dr. Redding, appreciate recs ? Ceftriaxone 1g IV daily (09/04-09/08) ? Clears -- advance to low fat 09/04 ? LR IVF ? Pending blood cx, wound cx ? Incentive spirometry ? See below for pain mgmt #Syncopal episode 2/2 dehydration vs vasovagal Brief syncopal episode, lasted several seconds, no head strike, immediately regained consciousness Patient is not complaining of cardiac symptoms and has no other concerning features at this time Plan: - CTM VS, clinical sx #Electrolyte disturbances Plan: - Replete PRN - CTM with daily CMP #Severe constipation Since last admission (08/31) to today has had 1 bowel movement with the need for self manual disimpaction Plan: ? Senna PO daily #GERD Plan: ? Protonix 40 IV daily #Depression Plan: ? Citalopram 40 mg PO daily (home med) #History of Dilan-en-Y Performed >25 years ago Plan: ? CTM daily CBC Checklist Dispo: IV abx Lines: PIV Diet: clears Bowel Reg: senna daily VTE ppx: heparin subQ GI ppx: pantoprazole 40 mg IV daily Pain mgmt: Tylenol PO PRN, tramadol 50 PO q4h PRN Code status: full Plan discussed with Dr. Janusz Donnelly and Dr. Agustin Traylor MD PGY1
[2025-09-04] MEDS: cefTRIAXone/D5w 1gm IV premix 1 GM/50 ML BAG IV (09:27)
--- NOTE | 2025-09-04 13:38 | PD.SURPROG ---
Documentation for date of: 09/04/25 Subjective Subjective Brief History: 60F with history of gastric bypass, GERD who was hospitalized last week with gallstone pancreatitis s/p lap rebecca 08/30/25 readmitted with abdominal pain and fever. Pt reports she had been feeling well at home initially after discharge but yesterday felt RUQ pain worsened, she preferred not to take norco as it was keeping her awake. She has also noted epigastric pain that worsens with deep breaths and pt feels it is different from previous surgeries. Pain associated with subjective fever and decreased appetite, and yesterday she had a syncopal episode prompting her to seek care in ER. Since admission she has had Tmax 99.1, labs show WBC 11.8 and normal LFTs, with CT showing a fluid collection in the gallbladder Narrative: Feeling much better today after percutaneous drain placed yesterday, Tmax 99.4 yesterday am. No nausea, tolerating diet but has not yet had a BM. Drain had 60cc emptied so far since yesterday, culture growing GNR Exam Vital Signs Temp Pulse Resp BP Pulse Ox O2 Del Method O2 Flow Rate 98.0 F 74 18 102/60 96 Nasal Cannula 2 09/04/25 12:00 09/04/25 12:00 09/04/25 12:00 09/04/25 12:00 09/04/25 12:00 09/04/25 12:00 09/04/25 12:00 Constitutional Constitutional: no acute distress Routine Respiratory Exam Respiratory: Present no resp distress Routine Abdominal Exam Abdominal: Present soft and drain (RUQ drain with brown output); Absent tenderness or distended Results Results: Laboratory Laboratory results: results reviewed Assessment & Plan Plan 60F with history of gastric bypass, GERD who was hospitalized last week with gallstone pancreatitis s/p lap rebecca 08/30/25 readmitted with abdominal pain and fever, findings of gallbladder abscess s/p percutaneous drain placement 09/03, recovering well Tramadol PRN (pt prefers not to take percocet) Low fat diet as tolerated Follow up cultures Repeat CT when drain output remains <20cc/24h
[2025-09-04] MEDS: MELATONIN 3 MG TABLET 6 MG PO (20:20)
[2025-09-05] VITALS (7 sets, daily range): BP systolic 110–128; BP diastolic 42–68; PULSE 60–86; RESP 16–96; TEMP 36.1–37.2; O2SAT 93–96
[2025-09-05] MEDS: HEPARIN SOD INJ 5000 UNIT/ML VIAL SC ×3 (05:14→21:18)
[2025-09-05 05:20] LABS: Basophils # (Auto) 0.0 Thou/mm3 (0.0-0.2); Basophils % (Auto) 0 % (0-2.5); Eosinophils # (Auto) 0.4 Thou/mm3 (0.0-0.5); Eosinophils % (Auto) 4 % (0-10); Hematocrit 28.9 % (36.0-46.0); Hemoglobin 9.6 g/dL (12.0-16.0); Immature Granulocytes Auto 0.17 Thou/mm3 (0.00-0.00); Lymphocytes # (Auto) 1.9 Thou/mm3 (1.0-4.8); Lymphocytes % (Auto) 18 % (10-50); Mean Corpuscular HGB Conc 33.2 g/dl (31.0-37.0); Mean Corpuscular Hemoglobin 29.2 pg (25.0-35.0); Mean Corpuscular Volume 88 fL (80-100); Monocytes # (Auto) 0.8 Thou/mm3 (0.0-0.8); Monocytes % (Auto) 8 % (0-12); Neutrophils # (Auto) 7.3 Thou/mm3 (1.8-7.7); Neutrophils % (Auto) 69 % (37-80); Nucleated Red Blood Cell # 0.00 Thou/mm3 (0.00-0.00); Nucleated Red Blood Cell % 0 /100 WBC (0); Platelet Count 348 Thou/mm3 (140-440); RDW Standard Deviation 44.1 fL (36.4-46.3); Red Blood Count 3.29 Miln/mm3 (4.00-5.20); White Blood Count 10.6 Thou/mm3 (3.6-11.0)
[2025-09-05 05:55] LABS: Alanine Aminotransferase 29 U/L (10-49); Albumin, Serum 3.1 gm/dL (3.4-4.8); Albumin/Globulin Ratio 1.7 (1.2-2.2); Alkaline Phosphatase 96 U/L (46-116); Anion Gap 9 (7-16); Aspartate Amino Transferase 14 U/L (0-34); BUN/Creatinine Ratio 10 Ratio (12-20); Bilirubin,Total 0.4 mg/dL (0.3-1.2); Blood Urea Nitrogen < 5 mg/dL (9-23); Calcium 7.9 mg/dL (8.3-10.6); Calcium (Corrected) 8.6 mg/dL (8.5-10.1); Carbon Dioxide 28.0 mMol/L (20.0-31.0); Chloride 107 mMol/L (98-107); Creatinine (Component) 0.5 mg/dL (0.6-1.3); Estimated Creatinine Clearance 114.8 mL/min (>60); Globulin 1.8 gm/dL (2.3-3.5); Glucose 104 mg/dL (74-106); Osmolality,Calculated 284 (275-295); Potassium 3.9 mMol/L (3.4-5.1); Sodium 144 mMol/L (136-145); Total Protein 4.9 gm/dL (5.7-8.2); eGFR > 60 See Note
--- NOTE | 2025-09-05 08:17 | ESPR_ITS ---
<Statement entered by Garland Velez MD - 09/10/25 15:24> I reviewed above note and agree with findings and plans. I have also personally examined the patient with medicine team and went over assessment and plan with medical team including equine intern and resident physician. <Statement entered by Sharif Donnelly MD - 09/05/25 14:57> Pt is seen at bedside, endorses to improvement in abdominal pain. Pt complains due to uncomfortable bed she has been able to sleep very much. TANYA drain is noted to have approximately 10cc of serosanguineous output. Per surgery recommendation will repeat imaging tomorrow and then will discharge the patient. Leukocyte count has down trended to normal patient has remained afebrile, wound culture grew E. coli. Will continue Rocephin. Patient was seen and examined by me personally. I have directly supervised and reviewed documentation by the team resident and agree with its findings. ------- Plan of care was discussed with the attending, Dr. Agustin Donnelly, PGY-2 Documentation for date of: 09/05/25 Subjective Subjective Interval history: NAEO Denies pain, shortness of breath. Tolerating low fat diet. Having difficulty staying asleep despite melatonin and benadryl PO. Able to walk to and from bathroom unassisted BM: 1, normal consistency 90-94% spO2 on RA. Was placed on 2L O2 briefly, spO2 96%. Productive cough. Completed Wound cx Ecoli TANYA drain output overnight 15 cc Exam Vital Signs Temp Pulse Resp BP Pulse Ox O2 Del Method O2 Flow Rate 97.7 F 60 16 117/68 93 L Room Air 2 09/05/25 08:00 09/05/25 08:00 09/05/25 08:00 09/05/25 08:00 09/05/25 08:00 09/05/25 08:00 09/04/25 12:00 Narrative Exam General: No acute distress, well nourished Eye: PERRL, EOMI, normal conjunctiva, no scleral icterus HENT: Normocephalic, atraumatic, normal hearing, moist oral mucosa Neck: Supple, non-tender, no JVD, no lymphadenopathy Lungs: Clear to auscultation bilaterally, non-labored respirations, symmetric chest rise, no use of accessory muscles Heart: Normal S1 and S2, no S3 or S4 appreciated. Normal rate and regular rhythm, no murmurs, rubs gallops, or edema. Peripheral pulses intact bilaterally, capillary refill brisk distally Abdomen: Soft, mild RUQ TTP, gallbladder fossa TANYA drain in place Musculoskeletal: Normal range of motion and strength, no tenderness or swelling Skin: Skin is warm, dry, no rashes or lesions. Neurologic: Alert, awake and oriented x3. CN II-XII grossly intact. No focal neuro deficits. No signs of meningeal irritation noted. Psychiatric: Cooperative, appropriate mood and affect Objective Labs 09/05/25 04:50 09/05/25 04:50 Labs: Laboratory Results - last 24 hr 09/05/25 04:50 WBC 10.6 RBC 3.29 L Hgb 9.6 L Hct 28.9 L MCV 88 MCH 29.2 MCHC 33.2 RDW Std Deviation 44.1 Plt Count 348 Neut % (Auto) 69 Lymph % (Auto) 18 [place] % (Auto) 8 Eos % (Auto) 4 Baso % (Auto) 0 Neut # (Auto) 7.3 Lymph # (Auto) 1.9 [place] # (Auto) 0.8 Eos # (Auto) 0.4 Baso # (Auto) 0.0 Immature Gran # (Auto) 0.17 H Absolute Nucleated RBC 0.00 Immature Gran % 2 H Nucleated RBC % 0 Sodium 144 Potassium 3.9 D Chloride 107 Carbon Dioxide 28.0 Anion Gap 9 BUN < 5 L Creatinine 0.5 L Estim Creat Clear Calc 114.8 eGFR > 60 BUN/Creatinine Ratio 10 L Glucose 104 Calculated Osmolality 284 Calcium 7.9 L Corrected Calcium 8.6 Total Bilirubin 0.4 AST 14 ALT 29 Alkaline Phosphatase 96 Total Protein 4.9 L Albumin 3.1 L Globulin 1.8 L Albumin/Globulin Ratio 1.7 Quality Measures Quality Measures none Assessment & Plan Assessment Current Active Medications: Generic Name Dose Route Start Last Admin Trade Name Freq PRN Reason Stop Dose Admin Acetaminophen 650 mg 09/03/25 13:11 Acetaminophen 325 Mg Tablet PO 10/03/25 13:10 Q4HR PRN Pain Scale 1-3 (Mild or fever Citalopram Hydrobromide 40 mg 09/04/25 09:00 09/04/25 08:29 Citalopram 20 Mg Tablet PO 10/04/25 08:59 40 mg QDAY JOYCELYN Administration Heparin Sodium (Porcine) 5,000 unit 09/03/25 22:00 09/05/25 05:14 Heparin Sod Inj 5000 Unit/Ml Vial SC 09/17/25 21:59 5,000 unit Q8HR JOYCELYN Administration Ceftriaxone Sodium/Dextrose 1 gm in 50 mls @ 100 mls/hr 09/04/25 08:58 09/04/25 09:27 Rocephin/D5w 1gm Iv Premix IV 09/08/25 15:00 100 mls/hr QDAY JOYCELYN Administration Melatonin 6 mg 09/03/25 21:00 09/04/25 20:20 Melatonin 3 Mg Tablet PO 10/03/25 20:59 6 mg HS JOYCELYN Administration Ondansetron HCl 4 mg 09/03/25 02:49 09/03/25 13:23 Ondansetron Inj 2 Mg/Ml Inj 2 Ml IVP 10/03/25 02:48 4 mg Q6H PRN Administration NAUSEA OR VOMITING Protocol Pantoprazole Sodium 40 mg 09/03/25 09:00 09/04/25 08:29 Pantoprazole Inj 40 Mg Vial IVP 10/03/25 08:59 40 mg QDAY JOYCELYN Administration Sennosides 1 tab 09/03/25 02:49 Senna Tablet PO 10/03/25 02:48 QDAY PRN constipation Protocol Tramadol HCl 50 mg 09/04/25 13:37 09/04/25 20:20 Tramadol Hcl 50 Mg Tablet PO 09/09/25 13:36 50 mg Q4HR PRN Administration PAIN SCALE 4-10(Mod-Sev Plan 60-year-old female with history of GERD, appendectomy, Dilan-en-Y, and most recently 4 days post-op from a cholecystectomy performed by Dr. Redding on 08/30/25, admitted for intra-abdominal abscess pending surgical evaluation. #Intra-abdominal Ecoli abscess Patient is 4 days post-op from a cholecystectomy performed by Dr. Redding on 08/30/25 Patient complains of intermittent fever, dizziness, nausea, productive cough with yellow sputum, and worsening epigastric pain, which is exacerbated by deep breathing CT abdomen (prelim read) shows no evidence of bowel obstruction, complex postop collection with air loculated in the gallbladder fossa, fluid-filled small and large bowel loops WBC 11.8 Gallbladder fossa drain in place, placed 09/[address] Miladis Starks IV (09/03-09/04) Wound cx: Ecoli Blood cx: NGTD at 48h Plan ? General Surgery consulted, Dr. Redding, appreciate recs - Monitor TANYA drain output. anticipate pulling TANYA drain 09/06 ? Ceftriaxone 1g IV daily (09/04-09/08) ? Low fat diet started 09/04, tolerating well ? Incentive spirometry ? See below for pain mgmt #Productive cough Present prior to previous admission. Denies chest pain, shortness of breath. Now requiring occasional supplemental spO2 to maintain spO2 > 96% i/s/o RUQ pain 2/2 gallstone pancreatitis s/p cholecystectomy, c/b intraabdominal Ecoli abscess in gallbladder fossa - pain limiting pt taking full breaths Plan: - Incentive spirometry - Pending CXR - On ceftriaxone for abscess #Syncopal episode 2/2 dehydration vs vasovagal Brief syncopal episode, lasted several seconds, no head strike, immediately regained consciousness Patient is not complaining of cardiac symptoms and has no other concerning features at this time Plan: - CTM VS, clinical sx #Electrolyte disturbances Plan: - Replete PRN - CTM with daily CMP #Constipation - resolved Since last admission (08/31) to today has had 1 bowel movement with the need for self manual disimpaction BM: 1 on 09/03, normal consistency Plan: ? Senna PO daily #GERD Plan: ? Protonix 40 IV daily #Depression Plan: ? Citalopram 40 mg PO daily (home med) #History of Dilan-en-Y Performed >25 years ago Plan: ? CTM daily CBC Checklist Dispo: IV abx, TANYA drain Lines: PIV Diet: clears Bowel Reg: senna daily VTE ppx: heparin subQ GI ppx: pantoprazole 40 mg IV daily Pain mgmt: Tylenol PO PRN, tramadol 50 PO q4h PRN Code status: full Plan discussed with Dr. Janusz Donnelly and Dr. Agustin Traylor MD PGY1
--- NOTE | 2025-09-05 09:11 | XR_ITS ---
EXAMINATION: AP chest single view TECHNIQUE: AP portable upright chest single view Date and time: September 05, 2025, 0944 hours, comparison September 02, 2025 INDICATIONS: Inpatient with hypoxia and productive cough FINDINGS: Mild pneumonia left base obscuring detail left hemidiaphragm Reduced inspiratory effort Minor prominence left ventricle No pulmonary edema Also mild pneumonia right perihilar region IMPRESSION: Mild right perihilar and left basilar pneumonia
[2025-09-05] MEDS: cefTRIAXone/D5w 1gm IV premix 1 GM/50 ML BAG IV (09:39)
[2025-09-05] MEDS: CITALOPRAM 20 MG TABLET 40 MG PO (09:39)
--- NOTE | 2025-09-05 10:25 | ESPR_ITS ---
Documentation for date of: 09/05/25 Subjective Subjective Brief History: 60F with history of gastric bypass, GERD who was hospitalized last week with gallstone pancreatitis s/p lap rebecca 08/30/25 readmitted with abdominal pain and fever. Pt reports she had been feeling well at home initially after discharge but yesterday felt RUQ pain worsened, she preferred not to take norco as it was keeping her awake. She has also noted epigastric pain that worsens with deep breaths and pt feels it is different from previous surgeries. Pain associated with subjective fever and decreased appetite, and yesterday she had a syncopal episode prompting her to seek care in ER. Since admission she has had Tmax 99.1, labs show WBC 11.8 and normal LFTs, with CT showing a fluid collection in the gallbladder Narrative: Feeling well today with no pain, no fever, WBC normal, RUQ drain had 45cc/24h, culture growing E coli Exam Vital Signs Temp Pulse Resp BP Pulse Ox O2 Del Method O2 Flow Rate 97.7 F 60 16 117/68 93 L Room Air 2 09/05/25 08:00 09/05/25 08:00 09/05/25 08:00 09/05/25 08:00 09/05/25 08:00 09/05/25 08:00 09/04/25 12:00 Constitutional Constitutional: no acute distress Routine Respiratory Exam Respiratory: Present no resp distress Routine Abdominal Exam Abdominal: Present soft and drain (RUQ drain with brown output); Absent tende rness or distended Results Results: Laboratory Laboratory results: results reviewed Assessment & Plan Plan 60F with history of gastric bypass, GERD who was hospitalized last week with gallstone pancreatitis s/p lap rebecca 08/30/25 readmitted with abdominal pain and fever, findings of gallbladder abscess s/p percutaneous drain placement 09/03, recovering well Plan on repeat CT tomorrow Continue diet as tolerated Abx for 4 days after drain placement
[2025-09-05] MEDS: MELATONIN 3 MG TABLET 6 MG PO (21:17)
[2025-09-06] VITALS: BP 122/61; PULSE 68; RESP 17; TEMP 37.1; O2SAT 96
[2025-09-06 04:00] VITALS: BP 125/62; PULSE 65; RESP 16; TEMP 37; O2SAT 95
[2025-09-06] MEDS: HEPARIN SOD INJ 5000 UNIT/ML VIAL SC ×2 (05:17→14:04)
[2025-09-06 08:00] VITALS: BP 142/84; PULSE 77; RESP 18; TEMP 36.5; O2SAT 94
--- NOTE | 2025-09-06 08:21 | ESDS_ITS ---
<Statement entered by Garland Velez MD - 09/18/25 08:30> I reviewed above note and agree with findings and plans. I have also personally examined the patient with medicine team and went over assessment and plan with medical team including internal grinder tender and resident physician. Planned Discharge Date 09/06/25 DS: Providers Provider Date of admission: 09/03/25 02:49 Primary care physician: Physician No Primary/Family Admitting Provider: Qiana Silverman MD Attending Provider on Admission: Garland Velez MD Consults: 09/03/25 02:57 Consult to General Surgery Stat Comment: Consulting Provider: Aurora Redding Attending Provider on DC: Dr. Garland Velez Discharging Provider: Fauzia Traylor MD DS: Diagnosis Problem List Completed Was Problem List Reviewed/Reconciled?: Yes Hospital Course Hospital Course Hospital course: Hospital course Ms. Jones is a 60 y/o female with PMH GERD, appendectomy, Dilan-en-Y gastric bypass, and recent cholecystectomy performed by Dr. Redding on 08/30/25 who presented to the ED 09/03 with progressively worsening epigastric and RUQ pain, constipation, poor PO intake, and syncopal episode (2/2 vasovagal vs dehydration). In the ED patient was tachycardic with leukocytosis. CT showed abscess in the gallbladder fossa, empirically treated with Zosyn IV (09/03- 09/04). Wound culture grew E coli, narrowed abx to Ceftriaxone IV (09/04-09/06). Blood cx NGTD at 48 hr. TANYA drain was placed on 09/[address] Redding and removed on 08/[address] evidence of improved fluid collection. Patient's pain has improved and is tolerating low fat diet. Patient has been passing gas and has been having normal BMs with bowel regimen of senna PO daily. Patient had a productive cough that started prior to hospitalization i/s/o RUQ abdominal pain that limited her lung expansion. Patient was previously discharged with PO abx for CAP which she completed outpatient. Patient continues to have productive cough without fever, leukocytosis, or imaging c/w pneumonia. Patient encouraged to use incentive spirometer at least once per hour now that her pain has diminished. Patients vitals remain stable, afebrile. Labs were reviewed and leukocytosis resolved. Patient tolerating PO diet. Diagnoses #Intra-abdominal Ecoli abscess in gallbladder fossa #Syncopal episode 2/2 dehydration vs vasovagal #Productive cough #Electrolyte disturbances #Constipation - resolved #GERD #Depression #History of Dilan-en-Y Discharge instructions - Follow up with PCP within 1 week of discharge, if you do not have a primary care physician you can come see us at the [facility] by calling [phone] - Take Cefuroxime 250 mg twice daily for 1 day - Continue using incentive spirometer - Continue rest of medications as previously prescribed - Return to the ED or call EMS if symptoms return and/or worsen Fauzia Traylor MD PGY1 Time Spent with Patient Time attestation: Total time spent providing and/or coordinating discharge services: Time spent: Greater than 30 minutes Exam Vital Signs Temp Pulse Resp BP Pulse Ox O2 Del Method O2 Flow Rate 97.7 F 77 18 142/84 H 94 L Room Air 2 09/06/25 08:00 09/06/25 08:00 09/06/25 08:00 09/06/25 08:00 09/06/25 08:00 09/06/25 08:00 09/04/25 12:00 Discharge Plan Plan Patient Disposition: HOME (Self Care) Care Plan Goals: - Follow up with PCP within 1 week of discharge, if you do not have a primary care physician you can come see us at the [facility] by calling [phone] - Take Cefuroxime 250 mg twice daily for 1 day - Continue using incentive spirometer - Continue rest of medications as previously prescribed - Return to the ED or call EMS if symptoms return and/or worsen Prescriptions/Referrals Prescriptions/Med Rec: New cefuroxime axetil 250 mg tablet 250 mg PO BID 1 Days Qty: 2 0RF Continued omeprazole 40 mg capsule,delayed release(DR/EC) 40 mg PO QDAY citalopram [Celexa] 40 mg tablet 40 mg PO QDAY hydrocodone-acetaminophen 5-325 mg tablet 1 tab PO BID MDD 10 mg-650 mg PRN (Reason: pain (scale score 7-10)) 5 Days Qty: 10 0RF Discontinued doxycycline hyclate 100 mg capsule 100 mg PO BID 5 Days Qty: 10 0RF Referrals: No Primary/Family,Physician [Primary Care Provider] Patient/Caregiver Discharge Instructions Print Language: [place] Stand Alone Forms: [facility] Award Info., Patient Portal Info Letter Discharge Order Discharge Orders: Discharge (Routine); Ordered 09/06/25 Ordered By: Fauzia Traylor Quality Discharge Quality Measures VTE prophylaxis
[2025-09-06] MEDS: CITALOPRAM 20 MG TABLET 40 MG PO (08:52)
[2025-09-06] MEDS: cefTRIAXone/D5w 1gm IV premix 1 GM/50 ML BAG IV (08:52)
--- NOTE | 2025-09-06 10:42 | PD.RESPRO ---
Documentation for date of: 09/06/25 Subjective Subjective Interval history: NAEO. VSS. Minimal TANYA drain output. Denies new concerns at this time. Exam Vital Signs Temp Pulse Resp BP Pulse Ox O2 Del Method O2 Flow Rate 97.7 F 77 18 142/84 H 94 L Room Air 2 09/06/25 08:00 09/06/25 08:00 09/06/25 08:00 09/06/25 08:00 09/06/25 08:00 09/06/25 08:00 09/04/25 12:00 Narrative Exam General: No acute distress, well nourished Eye: PERRL, EOMI, normal conjunctiva, no scleral icterus HENT: Normocephalic, atraumatic, normal hearing, moist oral mucosa Neck: Supple, non-tender, no JVD, no lymphadenopathy Lungs: Clear to auscultation bilaterally, non-labored respirations, symmetric chest rise, no use of accessory muscles Heart: Normal S1 and S2, no S3 or S4 appreciated. Normal rate and regular rhythm, no murmurs, rubs gallops, or edema. Peripheral pulses intact bilaterally, capillary refill brisk distally Abdomen: Soft, mild RUQ TTP, gallbladder fossa TANYA drain in place Musculoskeletal: Normal range of motion and strength, no tenderness or swelling Skin: Skin is warm, dry, no rashes or lesions. Neurologic: Alert, awake and oriented x3. CN II-XII grossly intact. No focal neuro deficits. No signs of meningeal irritation noted. Psychiatric: Cooperative, appropriate mood and affect Objective Labs 09/05/25 04:50 09/05/25 04:50 Quality Measures Quality Measures none Assessment & Plan Assessment Current Active Medications: Generic Name Dose Route Start Last Admin Trade Name Freq PRN Reason Stop Dose Admin Acetaminophen 650 mg 09/03/25 13:11 Acetaminophen 325 Mg Tablet PO 10/03/25 13:10 Q4HR PRN Pain Scale 1-3 (Mild or fever Citalopram Hydrobromide 40 mg 09/04/25 09:00 09/06/25 08:52 Citalopram 20 Mg Tablet PO 10/04/25 08:59 40 mg QDAY JOYCELYN Administration Heparin Sodium (Porcine) 5,000 unit 09/03/25 22:00 09/06/25 05:17 Heparin Sod Inj 5000 Unit/Ml Vial SC 09/17/25 21:59 5,000 unit Q8HR JOYCELYN Administration Ceftriaxone Sodium/Dextrose 1 gm in 50 mls @ 100 mls/hr 09/04/25 08:58 09/06/25 08:52 Rocephin/D5w 1gm Iv Premix IV 09/08/25 15:00 100 mls/hr QDAY JOYCELYN Administration Melatonin 6 mg 09/03/25 21:00 09/05/25 21:17 Melatonin 3 Mg Tablet PO 10/03/25 20:59 6 mg HS JOYCELYN Administration Ondansetron HCl 4 mg 09/03/25 02:49 09/03/25 13:23 Ondansetron Inj 2 Mg/Ml Inj 2 Ml IVP 10/03/25 02:48 4 mg Q6H PRN Administration NAUSEA OR VOMITING Protocol Pantoprazole Sodium 40 mg 09/03/25 09:00 09/06/25 08:52 Pantoprazole Inj 40 Mg Vial IVP 10/03/25 08:59 40 mg QDAY JOYCELYN Administration Sennosides 1 tab 09/03/25 02:49 Senna Tablet PO 10/03/25 02:48 QDAY PRN constipation Protocol Tramadol HCl 50 mg 09/04/25 13:37 09/04/25 20:20 Tramadol Hcl 50 Mg Tablet PO 09/09/25 13:36 50 mg Q4HR PRN Administration PAIN SCALE 4-10(Mod-Sev Plan 60-year-old female with history of GERD, appendectomy, Dilan-en-Y, and most recently 4 days post-op from a cholecystectomy performed by Dr. Redding on 08/30/25, admitted for intra-abdominal abscess pending surgical evaluation. #Intra-abdominal Ecoli abscess Patient is 4 days post-op from a cholecystectomy performed by Dr. Redding on 08/30/25 Patient complains of intermittent fever, dizziness, nausea, productive cough with yellow sputum, and worsening epigastric pain, which is exacerbated by deep breathing CT abdomen (prelim read) shows no evidence of bowel obstruction, complex postop collection with air loculated in the gallbladder fossa, fluid-filled small and large bowel loops WBC 11.8 Gallbladder fossa drain in place, placed 09/[address] Miladis Starks IV (09/03-09/04) Wound cx: Ecoli Blood cx: NGTD at 48h Plan ? General Surgery consulted, Dr. Redding, appreciate recs - Monitor TANYA drain output. anticipate pulling TANYA drain 09/06. Pending CT a/p w/ ? Ceftriaxone 1g IV daily (09/04-09/07) ? Low fat diet started 09/04, tolerating well ? Incentive spirometry ? See below for pain mgmt #Productive cough Present prior to previous admission. Denies chest pain, shortness of breath. CXR unremarkable i/s/o RUQ pain 2/2 gallstone pancreatitis s/p cholecystectomy, c/b intraabdominal Ecoli abscess in gallbladder fossa - pain limiting pt taking full breaths Plan: - Incentive spirometry - On ceftriaxone for abscess #Syncopal episode 2/2 dehydration vs vasovagal Brief syncopal episode, lasted several seconds, no head strike, immediately regained consciousness Patient is not complaining of cardiac symptoms and has no other concerning features at this time Plan: - CTM VS, clinical sx #Electrolyte disturbances Plan: - Replete PRN - CTM with daily CMP #Constipation - resolved Since last admission (08/31) to today has had 1 bowel movement with the need for self manual disimpaction BM: 1 on 09/03, normal consistency Plan: ? Senna PO daily #GERD Plan: ? Protonix 40 IV daily #Depression Plan: ? Citalopram 40 mg PO daily (home med) #History of Dilan-en-Y Performed >25 years ago Plan: ? CTM daily CBC Checklist Dispo: IV abx, pending TANYA drain removal. Anticipate d/c in next 24-48 hrs. Lines: PIV Diet: clears Bowel Reg: senna daily VTE ppx: heparin subQ GI ppx: pantoprazole 40 mg IV daily Pain mgmt: Tylenol PO PRN, tramadol 50 PO q4h PRN Code status: full Plan discussed with Dr. Agustin Traylor MD PGY1
[2025-09-06 11:36] VITALS: BP 119/69; PULSE 68; RESP 19; TEMP 36.8; O2SAT 96
--- NOTE | 2025-09-06 12:34 | XR_ITS ---
Examination: CT abdomen with intravenous contrast CT pelvis with intravenous contrast 2-D coronal reconstructions 2-D sagittal reconstructions Date and time of exam: September 06, 2025, 1247 hours, comparison September 03, 2025 INDICATIONS: Post cholecystectomy, 7.2 x 5.8 cm air and fluid abscess in the gallbladder fossa on CT study September 02, 2025. CTDI: vol (mGy) 10 DLP: (mGycm) 605 Technique: Multiple axial sections of the abdomen and pelvis have been obtained. 64 slice high-resolution scanner used. 3 mm axial sections have been obtained, post intravenous injection 60 cc [id number] 2-D sagittal, coronal reconstructions obtained. Low dose protocols were performed. One or more of the following dose reduction techniques were used; automated exposure control, adjustment of the mA and/or KV according to patient size, use of iterative reconstruction technique. Findings: Pneumonia right base with small right pleural effusion Much smaller abscess collection in the gallbladder fossa, 23 mm in thickness, the drainage tube in satisfactory position Gastric mucosa appears thickened No bowel obstruction No hydronephrosis Aorta normal size Moderate stool in the right colon Colonic diverticulosis, no pelvic mass Bladder intact IMPRESSION: Much smaller abscess collection in the gallbladder fossa, gallbladder fossa drainage tube satisfactory position
--- NOTE | 2025-09-06 14:47 | PC.NURSE ---
Dr. Redding in to see patient. Abscess drain removed by MD at bedside, patient tolerated well.
--- NOTE | 2025-09-06 14:53 | PD.SURPROG ---
Documentation for date of: 09/06/25 Subjective Subjective Brief History: 60F with history of gastric bypass, GERD who was hospitalized last week with gallstone pancreatitis s/p lap rebecca 08/30/25 readmitted with abdominal pain and fever. Pt reports she had been feeling well at home initially after discharge but yesterday felt RUQ pain worsened, she preferred not to take norco as it was keeping her awake. She has also noted epigastric pain that worsens with deep breaths and pt feels it is different from previous surgeries. Pain associated with subjective fever and decreased appetite, and yesterday she had a syncopal episode prompting her to seek care in ER. Since admission she has had Tmax 99.1, labs show WBC 11.8 and normal LFTs, with CT showing a fluid collection in the gallbladder Narrative: Drain had 30cc/24h, pt feeling very well not taking any pain meds and eager to go home as she has not been able to sleep here. WBC remaining normal and afebrile, CT showing decreased abscess Exam Vital Signs Temp Pulse Resp BP Pulse Ox O2 Del Method O2 Flow Rate 98.3 F 68 19 119/69 96 Room Air 2 09/06/25 11:36 09/06/25 11:36 09/06/25 11:36 09/06/25 11:36 09/06/25 11:36 09/06/25 11:36 09/04/25 12:00 Constitutional Constitutional: no acute distress Routine Respiratory Exam Respiratory: Present no resp distress Routine Abdominal Exam Abdominal: Present soft and drain (RUQ drain with minimal brown output removed today); Absent tenderness or distended Results Results: Laboratory Laboratory results: results reviewed Results: Imaging CT scan - abdomen: report reviewed and image reviewed Assessment & Plan Plan 60F with history of gastric bypass, GERD who was hospitalized last week with gallstone pancreatitis s/p lap rebecca 08/30/25 readmitted with abdominal pain and fever, findings of gallbladder abscess s/p percutaneous drain placement 09/03, recovering well As abscess significantly decreased and pt symptoms have resolved with resolution of leukocytosis, I removed drain today OK for dc from my standpoint, recommend abx for 4 days after drainage procedure total Will follow up as outpt
[2025-09-06 16:00] VITALS: BP 149/83; PULSE 64; RESP 20; TEMP 36.8; O2SAT 95
[2025-09-06 17:12] VITALS: BP 127/76; PULSE 65; RESP 20; TEMP 36.6; O2SAT 95
== END 2025-09-06 17:18 | disposition home or self-care (01) | DRG 862 ==
LOC: SERX 09-03 02:28 → SERHOLD 09-03 03:47 → S3SX 09-03 04:11
PROVIDERS: Nurse Practitioner Family; Admitting Provider Student in an Organized Health Care Education/Training Program; Emergency Provider Emergency Medicine; Visit Provider Internal Medicine
DX: T81.40XA Infection following a procedure, unspecified, initial encounter (principal); J18.9 Pneumonia, unspecified organism; K65.1 Peritoneal abscess; J90 Pleural effusion, not elsewhere classified; J98.11 Atelectasis; K91.89 Other postprocedural complications and disorders of digestive system; K21.9 Gastro-esophageal reflux disease without esophagitis; Z98.84 Bariatric surgery status; Z90.49 Acquired absence of other specified parts of digestive tract; E86.0 Dehydration; E87.6 Hypokalemia; E83.42 Hypomagnesemia; K59.00 Constipation, unspecified; F32.A Depression, unspecified; B96.20 Unspecified Escherichia coli [E. coli] as the cause of diseases classified elsewhere; Y83.6 Removal of other organ (partial) (total) as the cause of abnormal reaction of the patient, or of later complication, without mention of misadventure at the time of the procedure; Z79.899 Other long term (current) drug therapy
CPT/HCPCS: 36415; 71045; 71275; 74177; 75989; 80053; 81001; 81025; 83690; 83735; 84100; 84132; 85025; 85610; 85730; 87040; 87070; 87075; 87077; 87081; 87186; 87205; 87502; 87635; 96361; 96365; 96366; 96375; 96376; 99284; A4649; C1729; J0696; J1644; J2270; J2405; J2470; J2543; J3010; J3373; J3475; J3480; J3490; J7050; J7120; Q9967; A9270

== ENCOUNTER 2025-09-17 08:44 | Outpatient (AMB) | payer BC, SELFPAY ==
[2025-09-17 09:06] VITALS: BP 108/73; PULSE 99; RESP 18; TEMP 36.5; O2SAT 95; BMI 27.6
--- NOTE | 2025-09-17 09:06 | GSCOFFNT_ITS ---
Vital Signs - [facility] 09/17/25 09:06 Height 1.6 m Height Method Measured Weight 70.76 kg Weight Measurement Method Standing Scale BMI 27.6 BP 108/73 Blood Pressure Source Automatic Cuff Blood Pressure Location Left Upper Arm Position Sitting Respiration 18 Pulse 99 Pulse Source Monitor Temp 97.7 F Temp Source Temporal Artery Scan Pulse Oximetry (%) 95 Oxygen Delivery Method Room Air Med/Allergies Allergies & Medications Allergies No Known Allergies Allergy (Verified 09/17/25 09:34) Medication Reconciliation citalopram 40 mg tablet (Celexa) 40 mg PO QDAY 08/28/25 [History Confirmed 09/17/25] omeprazole 40 mg capsule,delayed release 40 mg PO QDAY 08/28/25 [History Confirmed 09/17/25] MA Intake Visit Data Collection New Patient or Established: Established Patient (seen at [facility] within 3 years) Seen by Clinical Staff ONLY (RN/MA): No Reason for Visit:: F/U ABDOMINAL Pain Present Currently: No Pain Scale Used: Chavez-Hahn/Numerical Web Specialist Required: No PCP or OBGYN visit in last 3 months: Yes Hx Now: No Do You Feel Safe at Home: Yes Authorities Contacted: N/A Smoking Status Smoking Status: Never smoker Immunization / Flu Flu Vaccine in the Last 12 Months: Yes Flu Vaccine Exclusion Criteria: Already Received Past Medical History Past Medical History NEUROLOGIC: Negative Seizures CARDIAC: Positive Hypotension; Negative Cardiac Disorders or Congestive Heart Failure RESPIRATORY: Negative Chronic Obstructive Pulmonary Disease (COPD) or Asthma GENITOURINARY: Negative Renal Disease ENDOCRINE: Negative Diabetes Mellitus Type 1 or Diabetes Mellitus Type 2 HEMATOLOGIC: Negative Sickle Cell Disease PSYCHO/SOCIAL: Positive Depression OTHER HISTORY: Negative Blood Transfusions, Blood Transfusion Reaction or Anesthesia Reactions Surgical History SURGICAL: Positive Gastric Bypass Surgery Social History SMOKING STATUS: Smoking status: Never smoker ALCOHOL: Alcohol Intake: Never HOUSING: Housing: House LIVES WITH: Lives With: Family HPI HPI Narrative 60F with history of gastric bypass, GERD who was hospitalized with gallstone pancreatitis s/p lap rebecca 08/30/25, course complicated by gallbladder fossa abscess s/p percutaneous drain placement 09/03 which was removed 09/06, here for planned follow up. Pt reports for the past two days she has felt the pain return, last night she had a fever and is also having nausea and difficulty taking deep breaths, feels similar to when she first presented with the abscess. She considered going to the ER last night but does feel slightly better this morning ROS Review of Systems Systems Reviewed: All systems reviewed, normal except as documented Objective/Exam General General Appearance: alert, cooperative and well groomed Resp Respiratory exam: Absent respiratory distress Abdominal Abdominal exam: Present soft, tenderness (moderate tenderness at the epigastrium) and incision (c/d/i); Absent distention Results 60F with history of gastric bypass, GERD who was hospitalized with gallstone pancreatitis s/p lap rebecca 08/30/25, course complicated by gallbladder fossa abscess drained 09/03 which I removed 09/06 after symptoms resolved and abscess significantly decreased, unfortunately having the same symptoms again. I recommended she go from here to ER and spoke to the semiconductor development technician Office Procedures GNS Level of Care Nursing/Assessment Patient Status: Established Patient Nursing Assessment/Reassesment: Medication Reconciliation, Update PMH in EMR and Vital Signs Coordination of Care: Complex Care and Chronic Disease 1-5, Education Complex Pt/Fam, Consent,records obtained, informed consent, Results/Orders obtained and Staff clarify orders Established Patient Charge Established Patient Point Assignment: 95 Established Patient Point Charge: EP Level 3 (80-115) Patient Portal Questionaires Social History Living Situation History Housing: House Tobacco History Smoking Status: Never smoker Alcohol History Alcohol Intake: Never Domestic Abuse History Do You Feel Safe at Home: Yes Review of Systems Report any current symptoms Only answer those that you have currently: Past Medical History Past Medical History Have you ever been diagnosed with any of the following: Neurological Problems Seizures: No Cardiology Problems Congestive Heart Failure: No Hypotension: Yes Respiratory Problems Chronic Obstructive Pulmonary Disease (COPD): No Asthma: No Genital/Urinary Problems Renal Disease: No Endocrine Problems Diabetes Mellitus Type 1: No Diabetes Mellitus Type 2: No Blood Problems Sickle Cell Disease: No Psychologic Problems Depression: Yes Other Problems Blood Transfusions: No Blood Transfusion Reaction: No Anesthesia Reactions: No
== END 2025-09-17 09:23 | disposition home or self-care (01) ==
LOC: HODSRG 08:44
PROVIDERS: Supervising Provider Surgery; Visit Provider Surgery
DX: G89.18 Other acute postprocedural pain (principal)
CPT/HCPCS: 99213; G0463

== ENCOUNTER 2025-09-17 09:31 | Inpatient (IN) | payer BC, SELFPAY ==
[2025-09-17] VITALS (10 sets, daily range): BP systolic 96–129; BP diastolic 42–62; PULSE 62–87; RESP 14–22; TEMP 36.6–37.1; O2SAT 94–99; BMI 27.1
--- NOTE | 2025-09-17 09:48 | XR_ITS ---
Examination: CT abdomen with intravenous contrast CT pelvis with intravenous contrast 2-D coronal reconstructions 2-D sagittal reconstructions Date and time of exam: September 17, 2025, 11:21 a.m INDICATIONS: Right lower abdomen pain, history gallbladder fossa abscess. CTDI: vol (mGy) 9.71 DLP: (mGycm) 552 Technique: Multiple axial sections of the abdomen and pelvis have been obtained. 64 slice high-resolution scanner used. 3 mm axial sections have been obtained, post intravenous injection 60 cc Isovue 370 2-D sagittal, coronal reconstructions obtained. Low dose protocols were performed. One or more of the following dose reduction techniques were used; automated exposure control, adjustment of the mA and/or KV according to patient size, use of iterative reconstruction technique. Findings: Atelectasis right lower lobe The patient's drainage tube is no longer identified 8.3 x 4.9 cm abscess in the gallbladder fossa Spleen not enlarged No pancreatic mass No hydronephrosis No bowel obstruction Urinary bladder intact No pelvic mass Moderate osteopenia IMPRESSION: The patient's gallbladder fossa drainage tube is no longer identified 8.3 x 4.9 cm abscess in the gallbladder fossa
--- NOTE | 2025-09-17 09:49 | PD.EDRME ---
Rapid Medical Screening Exam RME Arrival date/time: 09/17/25 09:31 60-year-old female with a history of a cholecystectomy presents to the emergency room with a chief complaint of right upper quadrant and epigastric abdominal pain. Patient states after her cholecystectomy she developed an abscess which was drained. Patient states she is feeling the same symptoms again as when she had an abscess. She then called her surgeon which told her to come to the emergency room. I have greeted and performed a focused initial assessment of this patient. A comprehensive ED assessment and evaluation of the patient, analysis of all test results, and completion of the medical decision making process will be conducted by additional ED providers. Chief Complaint: Abdominal Pain Time Seen by Provider: 09/17/25 09:41 Vital signs reviewed by provider: Yes Exam: Tenderness to the right upper quadrant and epigastric abdominal area Strong and regular rhythm GCS 15 Clinical Impression: Intra-abdominal abscess/abdominal pain/gastroenteritis
--- NOTE | 2025-09-17 10:13 | PD.EDABDPN ---
ED Abdominal Pain RME/HPI General Chief Complaint: Abdominal Pain Stated complaint: possible surgical abscess Time seen by provider: 09/17/25 09:41 Arrival date/time: 09/17/25 09:31 RME / HPI RME / HPI narrative: 09/17/25 09:31 60-year-old female with a history of a cholecystectomy presents to the emergency room with a chief complaint of right upper quadrant and epigastric abdominal pain. Patient states after her cholecystectomy she developed an abscess which was drained. Patient states she is feeling the same symptoms again as when she had an abscess. She then called her surgeon which told her to come to the emergency room. I have greeted and performed a focused initial assessment of this patient. A comprehensive ED assessment and evaluation of the patient, analysis of all test results, and completion of the medical decision making process will be conducted by additional ED providers. DR. URBINA MAIN ED EVALUATION 60 year old female patient who is s/p cholecytectomy performed by surgeon Dr. Redding on 08/30/2025 and admitted here 09/03-09/06/2025 for abscess in the gallbladder fossa, treated with Zosyn IV, Ceftriaxone IV, and TANYA drain placed on 09/03 and removed 09/[address] Redding presents to the ED referred by surgeon Dr. Redding for evaluation of abdominal pain today. Patient states the pain is localized to the epigastric and right upper quadrant. Described as an aching fullness sensation, rating 8/10 in severity. Accompanied by fevers, chills, and nausea. Reportedly had experienced similar pain when she was diagnosed with an intra-abdominal abscess and admitted for IV antibiotics. States she had been doing relatively well up until 2-3 days ago. Denies taking any medications for the pain. Denies vomiting. Exam: Tenderness to the right upper quadrant and epigastric abdominal area Strong and regular rhythm GCS 15 Impression: Intra-abdominal abscess/abdominal pain/gastroenteritis Related Data Home Medications ?Medication ?Instructions ?Recorded ?Confirmed citalopram 40 mg tablet (Celexa) 40 mg PO QDAY 08/28/25 09/17/25 omeprazole 40 mg capsule,delayed 40 mg PO QDAY 08/28/25 09/17/25 release Allergies Allergy/AdvReac Type Severity Reaction Status Date / Time No Known Allergies Allergy Verified 09/17/25 09:34 Review of Systems Review of Systems Systems Reviewed: All systems reviewed, normal except as documented Past Medical History Past Medical History CARDIAC: Positive Hypotension PSYCHO/SOCIAL: Positive Depression Surgical History SURGICAL: Positive Gastric Bypass Surgery Social History SMOKING STATUS: Never smoker ED Exam Narrative Physical exam: GENERAL APPEARANCE: alert and oriented x 4, well-developed, well-nourished, no acute distress HEENT: Normocephalic, atraumatic; pupils equal, round, reactive to light; EOMI; mucous membranes pink, moist; oropharynx clear NECK: Supple LUNGS: CTABL; no wheezes, no rales, no rhonchi HEART: Regular rate, regular rhythm; normal S1, S2; no murmurs ABDOMEN: non distended; normal BS; soft, mild right upper quadrant tenderness to palpation, no guarding, no rebound; no masses, no organomegaly, no hernia EXTREMITIES: atraumatic; no edema NEUROLOGIC: awake; alert and oriented x4; cranial nerves II-XII grossly intact; no focal sensory or motor deficits PSYCHIATRIC: appropriate mood and affect SKIN: warm, dry, normal color; no rashes Course Quality Measures none Orders Category Date Time Status CT Screening NOW Care 09/17/25 09:49 Active Consult to General Surgery Stat Cons 09/17/25 12:[address] abdomen pelvis w con Stat Exams 09/17/25 09:48 Completed IR abscess drainage Stat Exams 09/17/25 Ordered Blood Culture (Lab) Stat Lab 09/17/25 10:24 Received CBC Stat Lab 09/17/25 10:19 Completed CMP [Comprehensive Metabolic Panel] Stat Lab 09/17/25 10:19 Completed Lactate (Lactic Acid) Stat Lab 09/17/25 10:24 Completed Lipase Stat Lab 09/17/25 10:19 Completed Procalcitonin Stat Lab 09/17/25 10:19 Completed UA, C/S IF [Urinalysis, C/S if Indicated] Stat Lab 09/17/25 11:41 Received Sodium Chloride 0.9% 1000 ml [Ns] 1,000 ml Med 09/17/25 12:08 Active IV 999 mls/hr cefTRIAXone/D5w 1gm IV premix [Rocephin/D5w 1gm IV Med 09/17/25 12:06 Active premix] 1 gm in 50 ml IV X1 Vital Signs Vital signs: Vital Signs Temperature 98.2 F 09/17/25 10:01 Pulse Rate 87 09/17/25 10:01 Respiratory Rate 18 09/17/25 10:01 Blood Pressure 96/62 09/17/25 10:01 Pulse Oximetry (%) 99 09/17/25 10:01 Oxygen Delivery Method Room Air 09/17/25 10:01 Pulse ox is 99% on room air which is adequate. Abdominal Pain MDM MDM Narrative MDM Narrative:: I, Tricia To, am scribing for and in the presence of Dr. Urbina. 1206: I reviewed culture results from previous hospitalization on 09/03/2025, ordered Rocephin. I spoke with surgeon Dr. Redding. Discussed patients HPI, ED course, exam findings, labs, and radiology results. She agrees to consult. 1208p: I spoke with hospitalist Dr. Malone. Discussed patients PMHx, HPI, ED course, exam findings, labs, and radiology results. The hospitalist agree to accept the patient for admission. Patient data External records reviewed:: [facility] previous records Clinical information provided by:: patient Social determinants that could affect healthcare access:: none Patient has the following chronic illnesses:: s/p cholecytectomy performed by surgeon Dr. Redding on 08/30/2025 and admitted here 09/03-09/06/2025 for abscess in the gallbladder fossa, treated with Zosyn IV, Ceftriaxone IV, and TANYA drain placed on 09/03 and removed 09/[address] Redding How is presenting disease/condition affected by chronic disease/condition?: exacerbated by Evaluation data The following diagnostics were reviewed and interpreted by me:: lab results and radiology exam(s) Lab and/or radiology exams considered but not ordered:: none Interpretation Summary: Ordering Physician: Lavon Liao Date of Service: 09/17/25 Procedure(s): CT abdomen pelvis w con Accession Number(s): [id number] cc: Lavon Liao; Berto Meeks MD; NO PRIMARY/FAMILY,PHYSICIAN~ Examination: CT abdomen with intravenous contrast CT pelvis with intravenous contrast 2-D coronal reconstructions 2-D sagittal reconstructions Date and time of exam: September 17, 2025, 11:21 a.m INDICATIONS: Right lower abdomen pain, history gallbladder fossa abscess. CTDI: vol (mGy) 9.71 DLP: (mGycm) 552 Technique: Multiple axial sections of the abdomen and pelvis have been obtained. 64 slice high-resolution scanner used. 3 mm axial sections have been obtained, post intravenous injection 60 cc Isovue 370 2-D sagittal, coronal reconstructions obtained. Low dose protocols were performed. One or more of the following dose reduction techniques were used; automated exposure control, adjustment of the mA and/or KV according to patient size, use of iterative reconstruction technique. Findings: Atelectasis right lower lobe The patient's drainage tube is no longer identified 8.3 x 4.9 cm abscess in the gallbladder fossa Spleen not enlarged No pancreatic mass No hydronephrosis No bowel obstruction Urinary bladder intact No pelvic mass Moderate osteopenia IMPRESSION: The patient's gallbladder fossa drainage tube is no longer identified 8.3 x 4.9 cm abscess in the gallbladder fossa Dictated By: Berto Meeks MD Signed By: <Electronically signed by Berto Meeks MD in OV> 09/17/25 1144 Medications / Prescriptions Medications or Prescriptions considered but not ordered:: None Medication administrations:: Medication Administration History Ceftriaxone Sodium/Dextrose (Rocephin/D5w 1gm Iv Premix) 1 gm in 50 mls @ 100 mls/hr IV X1 ONE Stop: 09/17/25 12:35 Sodium Chloride (Ns) 1,000 mls @ 999 mls/hr IV .Q1H1M ONE Stop: 09/17/25 13:08 See above Consultations Consultation(s) initiated? (list below): Yes Consultation #1 (Physician, Specialty, Details): See MDM Diagnosis Differential diagnosis abdominal pain: abdominal pain and other (post surgical infection, intra-abdominal abscess ) Most likely diagnosis given after review of the tests above:: Post surgical infection Intra-abdominal abscess Admission Indicated Admission indicated?: indicated Admission Request Was there a request for admission?: Yes Admission Attestation Admission request attestation: Discussed case with [] from Hospitalist service regarding admission. Discussed patients ED course, exam findings, labs, and radiology results. The Hospitalist [agrees,declines] to accept the patient for admission. Disposition Plan Disposition Plan: Admit Discharge Plan Plan Patient Disposition: Admit Acute Care w/in Hospital Prescriptions/Referrals Prescriptions/Med Rec: No Action omeprazole 40 mg capsule,delayed release(DR/EC) 40 mg PO QDAY citalopram [Celexa] 40 mg tablet 40 mg PO QDAY Referrals: No Primary/Family,Physician [Primary Care Provider] - In 1 week Problem List Clinical Impression: Post-operative infection, Intra-abdominal abscess Patient/Caregiver Discharge Instructions Print Language: Japanese Stand Alone Forms: [facility] Award Info., Patient Portal Info Letter
[2025-09-17 10:40] LABS: Basophils # (Auto) 0.1 Thou/mm3 (0.0-0.2); Basophils % (Auto) 1 % (0-2.5); Eosinophils # (Auto) 0.2 Thou/mm3 (0.0-0.5); Eosinophils % (Auto) 1 % (0-10); Hematocrit 32.8 % (36.0-46.0); Hemoglobin 10.9 g/dL (12.0-16.0); Immature Granulocytes Auto 0.12 Thou/mm3 (0.00-0.00); Lymphocytes # (Auto) 1.7 Thou/mm3 (1.0-4.8); Lymphocytes % (Auto) 12 % (10-50); Mean Corpuscular HGB Conc 33.2 g/dl (31.0-37.0); Mean Corpuscular Hemoglobin 28.6 pg (25.0-35.0); Mean Corpuscular Volume 86 fL (80-100); Monocytes # (Auto) 1.2 Thou/mm3 (0.0-0.8); Monocytes % (Auto) 8 % (0-12); Neutrophils # (Auto) 10.8 Thou/mm3 (1.8-7.7); Neutrophils % (Auto) 77 % (37-80); Nucleated Red Blood Cell # 0.00 Thou/mm3 (0.00-0.00); Nucleated Red Blood Cell % 0 /100 WBC (0); Platelet Count 541 Thou/mm3 (140-440); RDW Standard Deviation 40.8 fL (36.4-46.3); Red Blood Count 3.81 Miln/mm3 (4.00-5.20); White Blood Count 14.0 Thou/mm3 (3.6-11.0)
[2025-09-17 10:40] LABS: Lactate (Lactic Acid) 1.1 mMol/L (0.4-2.0)
[2025-09-17 11:09] LABS: Alanine Aminotransferase 31 U/L (10-49); Albumin, Serum 4.6 gm/dL (3.4-4.8); Albumin/Globulin Ratio 1.6 (1.2-2.2); Alkaline Phosphatase 157 U/L (46-116); Anion Gap 11 (7-16); Aspartate Amino Transferase 36 U/L (0-34); BUN/Creatinine Ratio 13 Ratio (12-20); Bilirubin,Total 0.8 mg/dL (0.3-1.2); Blood Urea Nitrogen 8 mg/dL (9-23); Calcium 9.5 mg/dL (8.3-10.6); Calcium (Corrected) 9.5 mg/dL (8.5-10.1); Carbon Dioxide 26.4 mMol/L (20.0-31.0); Chloride 103 mMol/L (98-107); Creatinine (Component) 0.6 mg/dL (0.6-1.3); Estimated Creatinine Clearance 92.0 mL/min (>60); Globulin 2.8 gm/dL (2.3-3.5); Glucose 107 mg/dL (74-106); Lipase 38 U/L (12-53); Osmolality,Calculated 277 (275-295); Potassium 3.8 mMol/L (3.4-5.1); Procalcitonin 0.13 ng/ml (0.0-0.49); Sodium 140 mMol/L (136-145); Total Protein 7.4 gm/dL (5.7-8.2); eGFR > 60 See Note
[2025-09-17 11:46] LABS: Collection Type, Urine Clean Catch
[2025-09-17 12:03] LABS: Bacteria,Urine 4+; Bilirubin,Urine Negative (Negative); Blood,Urine Negative (Negative); Clarity,Urine Turbid (Clear/Hazy); Color,Urine Yellow (Lt Yel-Yel); Glucose, Urine Negative (Negative); Ketones,Urine Negative (Negative); Leukocyte Esterase,Urine Negative (Negative); Nitrite,Urine Positive (Negative); PH,Urine 6.5 (5.0-7.0); Protein,Urine Negative (Neg - Trace); RBC,Urine < 1 /hpf (0-3); Specific Gravity,Urine 1.020 (1.001-1.035); Squamous Epithelial Cell,Urine 2 /hpf (0-5); Transitional Epi Cells,Urine < 1 /hpf (0-5); Urobilinogen,Urine Negative mg/dL (0.0-1.0); WBC,Urine 3 /hpf (0-5)
[2025-09-17] MEDS: cefTRIAXone/D5w 1gm IV premix 1 GM/50 ML BAG IV ×2 (12:19→20:51)
[2025-09-17] MEDS: SODIUM CHLORIDE 0.9% 1000 ML 1,000 ML 999 ML IV (12:20)
[2025-09-17 12:23] LABS: Culture Indicated,Urine Yes
--- NOTE | 2025-09-17 13:47 | ESHP_ITS ---
<Statement entered by Rocky Albarado MD - 09/17/25 22:29> I saw and examined patient personally and supervised PGY 1 resident, Dr. Durham with formulating a management plan. I agree with the documentation with the exceptions as listed below. Patient is a 60-year-old female with past medical history of degenerative disc disease, GERD, depression, and recent cholecystectomy presenting to the ED on 09/17/2025 for recurrent pain/fever. She was admitted on 09/17/25 for management of recurrent abscess at cholecystectomy site. Problem list: 1. Recurrent intra-abdominal abscess s/p laparoscopic cholecystectomy on . 2. GERD 3. Depression 4. History of Dilan-en-Y gastric bypass Patient underwent laparoscopic cholecystectomy on 08/30/2025 and was subsequently discharged on 08/31. She was readmitted and had gallbladder fossa abscess drainage on 09/03 subsequently discharged on 09/06 after completing a 1 day course of Zosyn IV which was narrowed to ceftriaxone IV after wound culture results. She was discharged on a course of cefuroxime 250 mg p.o. twice daily for 1 day. Last night patient experienced subjective fevers and epigastric abdominal pain. This morning she presented to Dr. Garcia, general surgeon for her routine follow-up who advised her to present to the ED. CT abdomen showed 8.4 x 4.9 cm abscess in gallbladder fossa. She underwent successful CT-guided drain placement today and sample was started for Gram stain and culture. Currently patient on ceftriaxone 1 g IV twice daily for intra-abdominal abscess. Infectious disease, was consulted for recurrent intra-abdominal abscess. Plan of care discussed with Attending Dr. Kira Albarado MD PGY 2 Disclaimer: This note was dictated by speech recognition. Minor errors in frontload driver may be present due to voice recognition software. Documentation for date of: 09/17/25 HPI History of Present Illness Chief complaint: Abdominal pain History of present illness: History of present illness: Patient is a 60-year-old female with past medical history of degenerative disc disease, GERD, depression, and recent cholecystectomy presenting to the ED on 09/17/2025 for recurrent pain/fever. Patient was previously hospitalized at [facility] 10 days ago with infection secondary to previous cholecystectomy; she felt better after being discharged and took all prescribed antibiotics, but has begun to feel worse recently. She is experiencing significant right-sided tenderness radiating to the back, and had a fever last night. Complains of no other symptoms; was seen by Dr. Redding in the office today, and was told to come to the ER. She was admitted on 09/17/25 for management of recurrent abscess at cholecystectomy site. ED course: Patient was tender in RUQ and epigastric area; CT scan showed 8.3cm abscess in gallbladder fossa. Blood and urine cultures taken; surgery agreed to consult. IM attending agreed to admit. PMH: gallstone pancreatitis, back pain, infertility, depression PSH: appendectomy, cholecystectomy, spinal surgery, multiple surgeries for infertility, gastric bypess Allergies: NKDA Social history: No smoking or drug use; social EtOH Review of Systems Review of Systems Narrative Review of Systems: General: Endorses fever last night HEENT: Denies congestion or sore throat Heart: Denies chest pain or palpitations Lungs: Denies shortness of breath or cough Abdomen: Endorses significant RUQ pain to back Genitourinary: Denies frequency, urgency, dysuria, hematuria Musculoskeletal: Denies joint pain, denies muscular pain Neurology: Denies numbness, tingling ROS otherwise negative except what is mentioned above. Exam Vital Signs Temp Pulse Resp BP Pulse Ox O2 Del Method 98.2 F 87 18 96/62 99 Room Air 09/17/25 10:09/17/25 10:09/17/25 10:09/17/25 10:01 09/17/25 10:09/17/25 10:01 Narrative Exam General: A/O x3, no acute distress, well-nourished, well-developed Eyes: PERRL, EOMI. Anicteric, vision grossly intact. Ears: No ear pain, no ear discharge, Hearing grossly intact. Nose: No nasal discharge. Mouth/Throat: Moist mucous membranes, no redness, no lesions. Neck: Neck supple, non-tender, no cervical lymphadenopathy. Lungs: Clear DOMINGA to auscultation and percussion, No accessory muscle use. Cardio: Normal S1/S2, regular rhythm, no murmurs, no JVD or carotid bruits. Abdomen: Signfiicant RUQ tenderness to back on palpation Extremities: Symmetrical, no significant deformities, no peripheral edema , non-tender, peripheral pulses present. Skin: No rashes, no lesions, warm to touch. Neuro: No focal neurological deficits. Psych: Cooperative, appropriate mood and effect. Results: Labs 09/18/25 04:50 09/18/25 04:50 Labs: Short CBC 09/17/25 Range/Units 10:19 WBC 14.0 H (3.6-11.0) Thou/mm3 Hgb 10.9 L (12.0-16.0) g/dL Hct 32.8 L (36.0-46.0) % Plt Count 541 H D (140-440) Thou/mm3 BMP 09/17/25 10:19 Sodium 140 Potassium 3.8 Chloride 103 Carbon Dioxide 26.4 BUN 8 L Creatinine 0.6 Glucose 107 H Calcium 9.5 Liver Function 09/17/25 Range/Units 10:19 Total Bilirubin 0.8 (0.3-1.2) mg/dL AST 36 H (0-34) U/L ALT 31 (10-49) U/L Alkaline Phosphatase 157 H (46-116) U/L Albumin 4.6 (3.4-4.8) gm/dL Urine 09/17/25 Range/Units 11:41 Urine Color Yellow (Lt Yel-Yel) Urine Clarity Turbid A (Clear/Hazy) Urine pH 6.5 (5.0-7.0) Ur Specific [place] 1.020 (1.001-1.035) Urine Protein Negative (Neg - Trace) Urine Glucose (UA) Negative (Negative) Quality Measures Quality Measures none Medications Home Medications and Allergies Home Medications ?Medication ?Instructions ?Recorded ?Confirmed ?Type citalopram 40 mg tablet (Celexa) 40 mg PO QDAY 5 09/17/25 History omeprazole 40 mg capsule,delayed 40 mg PO QDAY 5 09/17/25 History release Allergies Allergy/AdvReac Type Severity Reaction Status Date / Time No Known Allergies Allergy Verified 09/17/25 09:34 Visit Medications Morphine Sulfate (Morphine Sulf Inj 4 Mg/Ml Vial) 2 mg IVP Q4HR PRN PRN Reason: PAIN SCALE 4-10(Mod-Sev Discontinued Medications Ceftriaxone Sodium/Dextrose (Rocephin/D5w 1gm Iv Premix) 1 gm in 50 mls @ 100 mls/hr IV X1 ONE Stop: 09/17/25 12:35 Last Infusion: 09/17/25 12:49 Dose: Infused Sodium Chloride (Ns) 1,000 mls @ 999 mls/hr IV .Q1H1M ONE Stop: 09/17/25 13:08 Last Admin: 09/17/25 12:20 Dose: 999 mls/hr Assessment & Plan Plan Patient is a 60-year-old female with past medical history of degenerative disc disease, GERD, depression, and recent cholecystectomy presenting to the ED on 09/17/2025 for recurrent pain/fever. She was admitted on 09/17/25 for management of recurrent abscess at cholecystectomy site. #Recurrent intra-abdominal abscess secondary to previous cholecystectomy Patient has had significant right sided abdominal pain for 2 to 3 days; CT scan shows 8.4 cm abscess at gallbladder fossa. WBC 14.0 on admission from 10.6 on 09/05/2025. Blood and urine cultures obtained. Plan ? General Surgery consulted, Dr. Redding aware, drain being placed now ? Follow-up blood and urine culture ? Morphine 2 mg IV every 4 hours as needed - Infectious disease consulted, appreciate recs #GERD Patient has history of GERD. Plan: ? Protonix 40 IV daily #Depression Patient takes citalopram 40 mg daily Plan: ? Restart Disposition: Med-Tele DVT prophylaxis: Heparin 5000 subq TID GI prophylaxis: Protonix 40 IV Diet: regular Lines: PIV CODE STATUS: Full This case was discussed with my attending physician, Dr. Teixeira, and senior resident, Dr. Albarado. Villa Coats, PGY1 Attending Provider Attestation/Addendum Patient was admitted for cholecystectomy, history of gastric bypass surgery was admitted for fever and abdominal pain CT scan showed 8.4 x 4.9 cm abscess in the gallbladder fossa. Patient scheduled for percutaneous drain placement. She was started on IV antibiotic treatment. The patient is hemodynamically stable. Discussed with housestaff.
--- NOTE | 2025-09-17 14:24 | XR_ITS ---
Examination: CT-guided percutaneous placement drainage catheter in gallbladder fossa abscess CT abdomen without intravenous contrast Date and time of procedure: September 17, 2025, 1516 hours INDICATIONS: Recurrent gallbladder fossa abscess on CT examination today, patient is post cholecystectomy Informed consent provided. A timeout was completed verifying correct patient, procedure, site and positioning. Technique: Axial 3 mm sections were obtained for localization of the abdomen. Appropriate area is marked. The patient's site was prepped and draped in sterile fashion Maximal sterile barrier technique utilized, including hand hygiene Local anesthesia was obtained with 1% lidocaine. Low dose protocols were performed. One or more of the following dose reduction techniques were used; automated exposure control, adjustment of the mA and/or KV according to patient size, use of iterative reconstruction technique. Utilizing CT fluoroscopic guidance 5 [place] catheter placed in the gallbladder fossa abscess 0.35 Introduced through the catheter followed by dilators and an 8 [place] pigtail drainage catheter in proper position Patient appears in stable condition during this procedure. At completion of the procedure, the patient is in satisfactory condition. Estimated blood loss 2 cc Complete culture and sensitivity report to follow. Impression: Successful CT-guided percutaneous placement drainage catheter in gallbladder fossa abscess
[2025-09-17] MEDS: fentaNYL CIT INJ 50 mCg/ML AMP 2ML 75 MCG IVP (15:17)
[2025-09-17] MEDS: LIDOCAINE INJ PF 1% 30 ML VIAL 6 ML EPID (15:29)
[2025-09-17] MEDS: CITALOPRAM 20 MG TABLET 40 MG PO (16:35)
[2025-09-17] MEDS: MORPHINE SULF INJ 4 MG/ML VIAL 2 MG IVP ×2 (16:48→20:48)
[2025-09-17] MEDS: ONDANSETRON INJ 2 MG/ML INJ 2 ML 4 MG IVP (18:00)
[2025-09-17] MEDS: HEPARIN SOD INJ 5000 UNIT/ML VIAL SC (21:00)
[2025-09-18] VITALS: BP 93/63; PULSE 73; PULSE 78; RESP 22; TEMP 36.4; O2SAT 95
[2025-09-18] MEDS: MORPHINE SULF INJ 4 MG/ML VIAL 2 MG IVP ×5 (01:22→23:59)
[2025-09-18 04:00] VITALS: BP 101/56; PULSE 60; PULSE 87; RESP 23; TEMP 36; O2SAT 92
[2025-09-18] MEDS: HEPARIN SOD INJ 5000 UNIT/ML VIAL SC ×3 (05:20→21:12)
[2025-09-18 06:24] LABS: Basophils # (Auto) 0.1 Thou/mm3 (0.0-0.2); Basophils % (Auto) 1 % (0-2.5); Eosinophils # (Auto) 0.5 Thou/mm3 (0.0-0.5); Eosinophils % (Auto) 5 % (0-10); Hematocrit 28.5 % (36.0-46.0); Hemoglobin 9.2 g/dL (12.0-16.0); Immature Granulocytes Auto 0.08 Thou/mm3 (0.00-0.00); Lymphocytes # (Auto) 2.0 Thou/mm3 (1.0-4.8); Lymphocytes % (Auto) 19 % (10-50); Mean Corpuscular HGB Conc 32.3 g/dl (31.0-37.0); Mean Corpuscular Hemoglobin 28.6 pg (25.0-35.0); Mean Corpuscular Volume 89 fL (80-100); Monocytes # (Auto) 0.9 Thou/mm3 (0.0-0.8); Monocytes % (Auto) 9 % (0-12); Neutrophils # (Auto) 6.8 Thou/mm3 (1.8-7.7); Neutrophils % (Auto) 66 % (37-80); Nucleated Red Blood Cell # 0.00 Thou/mm3 (0.00-0.00); Nucleated Red Blood Cell % 0 /100 WBC (0); Platelet Count 416 Thou/mm3 (140-440); RDW Standard Deviation 42.3 fL (36.4-46.3); Red Blood Count 3.22 Miln/mm3 (4.00-5.20); White Blood Count 10.3 Thou/mm3 (3.6-11.0)
[2025-09-18 06:31] LABS: INR 1.0 (0.9-1.3); Partial Thromboplastin Time 31.9 Seconds (22.0-36.0); Prothrombin Time 10.7 Seconds (9.0-12.2)
[2025-09-18 08:00] VITALS: BP 119/66; PULSE 71; RESP 28; TEMP 36.8; O2SAT 96
[2025-09-18 08:16] LABS: Alanine Aminotransferase 22 U/L (10-49); Albumin, Serum 3.7 gm/dL (3.4-4.8); Alkaline Phosphatase 119 U/L (46-116); Anion Gap 9 (7-16); Aspartate Amino Transferase 22 U/L (0-34); BUN/Creatinine Ratio 8 Ratio (12-20); Bilirubin,Total 0.3 mg/dL (0.3-1.2); Blood Urea Nitrogen < 5 mg/dL (9-23); Calcium 8.9 mg/dL (8.3-10.6); Calcium (Corrected) 9.1 mg/dL (8.5-10.1); Carbon Dioxide 27.0 mMol/L (20.0-31.0); Chloride 104 mMol/L (98-107); Creatinine (Component) 0.6 mg/dL (0.6-1.3); Estimated Creatinine Clearance 92.0 mL/min (>60); Glucose 95 mg/dL (74-106); Magnesium 1.8 mg/dL (1.6-2.6); Osmolality,Calculated 276 (275-295); Phosphorous 3.9 mg/dL (2.4-5.1); Potassium 3.9 mMol/L (3.4-5.1); Sodium 140 mMol/L (136-145); eGFR > 60 See Note
[2025-09-18 08:58] LABS: Cardiac Risk Estimate 6.2 RATIO (3.7-5.6); Cholesterol 130 mg/dL (132-200); HDL Cholesterol 21 mg/dL (40-60); LDL Cholesterol,Calculated 88 mg/dL (0-130); Triglycerides 104 mg/dL (30-150)
[2025-09-18] MEDS: cefTRIAXone/D5w 1gm IV premix 1 GM/50 ML BAG IV ×2 (09:12→20:08)
[2025-09-18] MEDS: CITALOPRAM 20 MG TABLET 40 MG PO (09:13)
--- NOTE | 2025-09-18 09:27 | ESPR_ITS ---
<Statement entered by Rocky Albarado MD - 09/19/25 07:11> I saw and examined patient personally and supervised PGY 1 resident, Dr. Durham with formulating a management plan. I agree with the documentation with the exceptions as listed below. Patient is a 60-year-old female with past medical history of degenerative disc disease, GERD, depression, and recent cholecystectomy presenting to the ED on 09/17/2025 for recurrent pain/fever. She was admitted on 09/17/25 for management of recurrent abscess at cholecystectomy site. Problem list: 1. Recurrent intra-abdominal abscess s/p laparoscopic cholecystectomy on . 2. GERD 3. Depression 4. History of Dilan-en-Y gastric bypass Patient underwent laparoscopic cholecystectomy on 08/30/2025 and was subsequently discharged on 08/31. She was readmitted and had gallbladder fossa abscess drainage on 09/03 subsequently discharged on 09/06 after completing a 1 day course of Zosyn IV which was narrowed to ceftriaxone IV after wound culture results. She was discharged on a course of cefuroxime 250 mg p.o. twice daily for 1 day. The night prior to admission patient experienced subjective fevers and epigastric abdominal pain. This morning she presented to Dr. Garcia, general surgeon for her routine follow-up who advised her to present to the ED. CT abdomen showed 8.4 x 4.9 cm abscess in gallbladder fossa. She underwent successful CT-guided drain placement today and sample was started for Gram stain and culture. Currently patient on ceftriaxone 1 g IV twice daily for intra- abdominal abscess. Infectious disease, was consulted for recurrent intra- abdominal abscess. Patient had 55 cc of pus drained past 24 hours. Discussed case with general surgery, Dr. Garcia who recommended to wait for output of drain to decrease tube between 10-15 cc/day before obtaining repeat CT and mention of abscess. Currently pending blood and wound cultures. Infectious disease, Dr Machado consulted, appreciate recommendations Plan of care discussed with Attending Dr. Jono Albarado MD PGY 2 Disclaimer: This note was dictated by speech recognition. Minor errors in hospital clinic assistant may be present due to voice recognition software. Documentation for date of: 09/18/25 Subjective Subjective Interval history: Patient seen and examined at bedside; no acute events overnight. Patient is having pain at drain placement site and some pain still on R side of abdomen, but well controlled with current pain regiment. Spoke with Dr. Redding; she wants to keep for a few days to check drain output and culture results. Exam Vital Signs Temp Pulse Resp BP Pulse Ox O2 Del Method O2 Flow Rate 98.3 F 71 28 H 119/66 96 Room Air 3 09/18/25 08:00 09/18/25 08:00 09/18/25 08:00 09/18/25 08:00 09/18/25 08:00 09/18/25 08:00 09/17/25 15:32 Narrative Exam General: A/O x3, no acute distress, well-nourished, well-developed Eyes: PERRL, EOMI. Anicteric, vision grossly intact. Ears: No ear pain, no ear discharge, Hearing grossly intact. Nose: No nasal discharge. Mouth/Throat: Moist mucous membranes, no redness, no lesions. Neck: Neck supple, non-tender, no cervical lymphadenopathy. Lungs: Clear DOMINGA to auscultation and percussion, No accessory muscle use. Cardio: Normal S1/S2, regular rhythm, no murmurs, no JVD or carotid bruits. Abdomen: Less RUQ tenderness to back on palpation today, but still present; drain in place and tender at site Extremities: Symmetrical, no significant deformities, no peripheral edema , non-tender, peripheral pulses present. Skin: No rashes, no lesions, warm to touch. Neuro: No focal neurological deficits. Psych: Cooperative, appropriate mood and effect. Objective Labs 09/18/25 04:50 09/18/25 04:50 Labs: Laboratory Results - last 24 hr 09/17/25 09/17/25 09/17/25 10:19 10:24 11:41 WBC 14.0 H RBC 3.81 L Hgb 10.9 L Hct 32.8 L MCV 86 MCH 28.6 MCHC 33.2 RDW Std Deviation 40.8 Plt Count 541 H D Neut % (Auto) 77 Lymph % (Auto) 12 [place] % (Auto) 8 Eos % (Auto) 1 Baso % (Auto) 1 Neut # (Auto) 10.8 H Lymph # (Auto) 1.7 [place] # (Auto) 1.2 H Eos # (Auto) 0.2 Baso # (Auto) 0.1 Immature Gran # (Auto) 0.12 H Absolute Nucleated RBC 0.00 Immature Gran % 1 H Nucleated RBC % 0 PT INR APTT Sodium 140 Potassium 3.8 Chloride 103 Carbon Dioxide 26.4 Anion Gap 11 BUN 8 L Creatinine 0.6 Estim Creat Clear Calc 92.0 eGFR > 60 BUN/Creatinine Ratio 13 Glucose 107 H Calculated Osmolality 277 Lactic Acid 1.1 Calcium 9.5 Corrected Calcium 9.5 Phosphorus Magnesium Total Bilirubin 0.8 AST 36 H ALT 31 Alkaline Phosphatase 157 H Total Protein 7.4 Albumin 4.6 Globulin 2.8 Albumin/Globulin Ratio 1.6 Triglycerides Cholesterol LDL Cholesterol, Calc HDL Cholesterol Cholesterol/HDL Ratio Lipase 38 Procalcitonin 0.13 Ur Collection Type Clean Catch Urine Color Yellow Urine Clarity Turbid A Urine pH 6.5 Ur Specific [place] 1.020 Urine Protein Negative Urine Glucose (UA) Negative Urine Ketones Negative Urine Blood Negative Urine Nitrite Positive Urine Bilirubin Negative Urine Urobilinogen (Auto) Negative Ur Leukocyte Esterase Negative Urine RBC < 1 Urine WBC 3 Ur Squamous Epith Cells 2 Ur Transition Epith Cell < 1 Urine Bacteria 4+ A Ur Culture Indicated? Yes 09/18/25 04:50 WBC 10.3 RBC 3.22 L Hgb 9.2 L Hct 28.5 L MCV 89 MCH 28.6 MCHC 32.3 RDW Std Deviation 42.3 Plt Count 416 D Neut % (Auto) 66 Lymph % (Auto) 19 [place] % (Auto) 9 Eos % (Auto) 5 Baso % (Auto) 1 Neut # (Auto) 6.8 Lymph # (Auto) 2.0 [place] # (Auto) 0.9 H Eos # (Auto) 0.5 Baso # (Auto) 0.1 Immature Gran # (Auto) 0.08 H Absolute Nucleated RBC 0.00 Immature Gran % 1 H Nucleated RBC % 0 PT 10.7 INR 1.0 APTT 31.9 Sodium 140 Potassium 3.9 Chloride 104 Carbon Dioxide 27.0 Anion Gap 9 BUN < 5 L Creatinine 0.6 Estim Creat Clear Calc 92.0 eGFR > 60 BUN/Creatinine Ratio 8 L Glucose 95 Calculated Osmolality 276 Lactic Acid Calcium 8.9 Corrected Calcium 9.1 Phosphorus 3.9 Magnesium 1.8 Total Bilirubin 0.3 D AST 22 ALT 22 Alkaline Phosphatase 119 H D Total Protein Albumin 3.7 D Globulin Albumin/Globulin Ratio Triglycerides 104 Cholesterol 130 L LDL Cholesterol, Calc 88 HDL Cholesterol 21 L Cholesterol/HDL Ratio 6.2 H Lipase Procalcitonin Ur Collection Type Urine Color Urine Clarity Urine pH Ur Specific [place] Urine Protein Urine Glucose (UA) Urine Ketones Urine Blood Urine Nitrite Urine Bilirubin Urine Urobilinogen (Auto) Ur Leukocyte Esterase Urine RBC Urine WBC Ur Squamous Epith Cells Ur Transition Epith Cell Urine Bacteria Ur Culture Indicated? Quality Measures Quality Measures none Assessment & Plan Assessment Current Active Medications: Generic Name Dose Route Start Last Admin Trade Name Freq PRN Reason Stop Dose Admin Acetaminophen 650 mg 09/17/25 14:15 Acetaminophen 325 Mg Tablet PO 10/17/25 14:14 Q6H PRN Fever >100.4 Acetaminophen 650 mg 09/17/25 14:15 Acetaminophen 325 Mg Tablet PO 10/17/25 14:14 Q6H PRN PAIN SCALE 1-3 (mild Citalopram Hydrobromide 40 mg 09/17/25 14:45 09/18/25 09:13 Citalopram 20 Mg Tablet PO 10/17/25 14:44 40 mg QDAY JOYCELYN Administration Heparin Sodium (Porcine) 5,000 unit 09/17/25 14:30 09/18/25 05:20 Heparin Sod Inj 5000 Unit/Ml Vial SC 10/01/25 14:29 5,000 unit Q8HR JOYCELYN Administration Ceftriaxone Sodium/Dextrose 1 gm in 50 mls @ 100 mls/hr 09/17/25 21:00 09/18/25 09:12 Rocephin/D5w 1gm Iv Premix IV 09/24/25 14:33 100 mls/hr Q12HR JOYCELYN Administration Morphine Sulfate 2 mg 09/18/25 04:53 09/18/25 07:11 Morphine Sulf Inj 4 Mg/Ml Vial IVP 09/23/25 04:52 2 mg Q4HR PRN Administration BREAKTHROUGH PAIN Ondansetron HCl 4 mg 09/17/25 14:15 09/17/25 18:00 Ondansetron Inj 2 Mg/Ml Inj 2 Ml IVP 10/17/25 14:14 4 mg Q6H PRN Administration NAUSEA OR VOMITING Protocol Pantoprazole Sodium 40 mg 09/17/25 14:30 09/18/25 09:13 Pantoprazole Inj 40 Mg Vial IVP 10/17/25 14:29 40 mg QDAY JOYCELYN Administration Plan Patient is a 60-year-old female with past medical history of degenerative disc disease, GERD, depression, and recent cholecystectomy presenting to the ED on 09/17/2025 for recurrent pain/fever. She was admitted on 09/17/25 for management of recurrent abscess at cholecystectomy site. #Recurrent intra-abdominal abscess In setting of recent cholecystectomy Patient has had significant right sided abdominal pain for 2 to 3 days; CT scan shows 8.4 cm abscess at gallbladder fossa. WBC 14.0 on admission from 10.6 on 09/05/2025. Blood, wound and urine cultures obtained. 09-18-25- WBC 10.3 from 14 yesterday; wound culture shows 4+ WBCs and fungal elements. Drain output is 55ml; Blood cultures show no growth after 24 hours. Plan ? General Surgery consulted, drain placed, Dr. Redding said to keep patient until cultures result and drain output goes down ? Follow-up blood, wound, and urine cultures ? Morphine 2 mg IV every 4 hours as needed - Infectious disease consulted, appreciate recs #GERD Patient has history of GERD. Plan: ? Protonix 40 IV daily #Depression Patient takes citalopram 40 mg daily Plan: ? Restarted Disposition: Med-Tele DVT prophylaxis: Heparin 5000 subq TID GI prophylaxis: Protonix 40 IV Diet: regular Lines: PIV CODE STATUS: Full This case was discussed with my attending physician, Dr. De La Cruz, and senior resident, Dr. Albarado. Villa Coats, PGY1 Attending Provider Attestation/Addendum I have discussed and was present for the essential components of the history, physical examination, diagnosis, and treatment plan with the resident. I agree with the patient's care as documented by the resident and amended herein by me. Paco De La Cruz DO. Although this document has been carefully reviewed, there may still be some phonetic and other typographical errors. These errors are purely grammatical due to imperfections in the software program and should not be construed in any way to compromise the substance of the patient's medical care during this visit.
--- NOTE | 2025-09-18 11:32 | PD.SURCONS ---
HPI Consult details History of present illness: 60F with history of gastric bypass, GERD who was hospitalized with gallstone pancreatitis s/p lap rebecca 08/30/25, course complicated by gallbladder fossa abscess drained 09/03 which I removed 09/06 after symptoms resolved and abscess significantly decreased, unfortunately having the same symptoms again presenting to ER 09/17 with findings of another gallbladder fossa abscess drained on the same day. Today pt reports feeling better, however she still has episodes of pain which are only temporarily relieved by morphine. She denies nausea, is eating well and remaining afebrile with WBC 10 from 14. Drain had 55cc output so far Review of Systems Review of Systems ROS Unobtainable: All systems reviewed & no additional complaints except as documented Meds Home Medications and Allergies Home Medications ?Medication ?Instructions ?Recorded ?Confirmed ?Type citalopram 40 mg tablet (Celexa) 40 mg PO QDAY 08/28/25 09/17/25 History omeprazole 40 mg capsule,delayed 40 mg PO QDAY 08/28/25 09/17/25 History release Allergies Allergy/AdvReac Type Severity Reaction Status Date / Time No Known Allergies Allergy Verified 09/17/25 09:34 Exam Vital Signs Temp Pulse Resp BP Pulse Ox O2 Del Method O2 Flow Rate 98.3 F 71 28 H 119/66 96 Room Air 3 09/18/25 08:00 09/18/25 08:00 09/18/25 08:00 09/18/25 08:00 09/18/25 08:00 09/18/25 08:00 09/17/25 15:32 Constitutional Constitutional: no acute distress Routine Respiratory Exam Respiratory: Present no resp distress Routine Abdominal Exam Abdominal: Present soft and drain (RUQ drain with purulent output); Absent tenderness or distended Results Results: Laboratory Laboratory results: results reviewed Assessment & Plan Plan 60F with history of gastric bypass, GERD who was hospitalized with gallstone pancreatitis s/p lap rebecca 08/30/25, course complicated by gallbladder fossa abscess drained 09/03-09/06, readmitted 09/17 with a second gallbladder fossa with a drain again in place. Clinically pt is overall well remaining afebrile with normalized WBC Added norco for pain control Follow up cultures, appreciate ID recs
[2025-09-18 12:00] VITALS: BP 115/68; PULSE 63; RESP 29; TEMP 36.1; O2SAT 94
[2025-09-18 13:04] LABS: Albumin/Globulin Ratio 1.5 (1.2-2.2); Globulin 2.5 gm/dL (2.3-3.5); Total Protein 6.2 gm/dL (5.7-8.2)
[2025-09-18 16:00] VITALS: BP 115/58; PULSE 66; RESP 16; TEMP 36.1; O2SAT 95
[2025-09-18 20:00] VITALS: BP 124/52; PULSE 59; PULSE 61; RESP 18; TEMP 36.9; O2SAT 93
[2025-09-19] VITALS (9 sets, daily range): BP systolic 104–123; BP diastolic 59–72; PULSE 52–73; RESP 17–18; TEMP 36.2–36.6; O2SAT 94–95
[2025-09-19] MEDS: HYDROcodone/APAP 5/325 TABLET 1 TAB PO ×5 (00:59→21:57)
--- NOTE | 2025-09-19 01:04 | PC.NURSE ---
PT. INFORMED ON THE PAIN MANAGEMENT AND HOW TRAMADOL SHOULD BE USED FIRST, THEN NORCO, AND THE MORPHINE LAST FOR BREAKTHROUGH PAIN. HOWEVER, PT. REPORTS THAT THE TRAMADOL IS INEFFECTIVE AND THE MORPHINE IS THE ONLY MEDICATION THAT WORKS. PT NOTIFIED WE HAVE TO TRY USING THE NORCO FIRST MORPHINE IS NOT TYPICALLY GIVEN ROUTINELY AFTER DISCHARGE.
--- NOTE | 2025-09-19 04:00 | PC.NURSE ---
[facility] downtime occurred on 09/19 from 0200 to 0348.
[2025-09-19] MEDS: HEPARIN SOD INJ 5000 UNIT/ML VIAL SC ×3 (05:29→21:38)
[2025-09-19 06:31] LABS: Basophils # (Auto) 0.1 Thou/mm3 (0.0-0.2); Basophils % (Auto) 1 % (0-2.5); Eosinophils # (Auto) 0.5 Thou/mm3 (0.0-0.5); Eosinophils % (Auto) 5 % (0-10); Hematocrit 31.1 % (36.0-46.0); Hemoglobin 9.8 g/dL (12.0-16.0); Immature Granulocytes Auto 0.07 Thou/mm3 (0.00-0.00); Lymphocytes # (Auto) 2.1 Thou/mm3 (1.0-4.8); Lymphocytes % (Auto) 22 % (10-50); Mean Corpuscular HGB Conc 31.5 g/dl (31.0-37.0); Mean Corpuscular Hemoglobin 28.1 pg (25.0-35.0); Mean Corpuscular Volume 89 fL (80-100); Monocytes # (Auto) 0.7 Thou/mm3 (0.0-0.8); Monocytes % (Auto) 8 % (0-12); Neutrophils # (Auto) 6.0 Thou/mm3 (1.8-7.7); Neutrophils % (Auto) 64 % (37-80); Nucleated Red Blood Cell # 0.00 Thou/mm3 (0.00-0.00); Nucleated Red Blood Cell % 0 /100 WBC (0); Platelet Count 456 Thou/mm3 (140-440); RDW Standard Deviation 41.9 fL (36.4-46.3); Red Blood Count 3.49 Miln/mm3 (4.00-5.20); White Blood Count 9.4 Thou/mm3 (3.6-11.0)
[2025-09-19 06:52] LABS: Alanine Aminotransferase 16 U/L (10-49); Albumin, Serum 4.0 gm/dL (3.4-4.8); Albumin/Globulin Ratio 1.5 (1.2-2.2); Alkaline Phosphatase 116 U/L (46-116); Anion Gap 9 (7-16); Aspartate Amino Transferase 19 U/L (0-34); BUN/Creatinine Ratio 8 Ratio (12-20); Bilirubin,Total 0.3 mg/dL (0.3-1.2); Blood Urea Nitrogen < 5 mg/dL (9-23); Calcium 9.1 mg/dL (8.3-10.6); Calcium (Corrected) 9.1 mg/dL (8.5-10.1); Carbon Dioxide 27.7 mMol/L (20.0-31.0); Chloride 105 mMol/L (98-107); Creatinine (Component) 0.6 mg/dL (0.6-1.3); Estimated Creatinine Clearance 92.0 mL/min (>60); Globulin 2.6 gm/dL (2.3-3.5); Glucose 90 mg/dL (74-106); Magnesium 1.8 mg/dL (1.6-2.6); Osmolality,Calculated 280 (275-295); Phosphorous 4.8 mg/dL (2.4-5.1); Potassium 4.0 mMol/L (3.4-5.1); Sodium 142 mMol/L (136-145); Total Protein 6.6 gm/dL (5.7-8.2); eGFR > 60 See Note
[2025-09-19] MEDS: CITALOPRAM 20 MG TABLET 40 MG PO (07:59)
[2025-09-19] MEDS: cefTRIAXone/D5w 1gm IV premix 1 GM/50 ML BAG IV ×2 (07:59→20:53)
--- NOTE | 2025-09-19 08:55 | ESPR_ITS ---
<Statement entered by Rocky Albarado MD - 09/19/25 15:22> I saw and examined patient personally and supervised PGY 1 resident, Dr. Durham with formulating a management plan. I agree with the documentation with the exceptions as listed below. Patient is a 60-year-old female with past medical history of degenerative disc disease, GERD, depression, and recent cholecystectomy presenting to the ED on 09/17/2025 for recurrent pain/fever. She was admitted on 09/17/25 for management of recurrent abscess at cholecystectomy site. Problem list: 1. Recurrent intra-abdominal abscess s/p laparoscopic cholecystectomy on . 2. GERD 3. Depression 4. History of Dilan-en-Y gastric bypass Patient underwent laparoscopic cholecystectomy on 08/30/2025 and was subsequently discharged on 08/31. She was readmitted and had gallbladder fossa abscess drainage on 09/03 subsequently discharged on 09/06 after completing a 1 day course of Zosyn IV which was narrowed to ceftriaxone IV after wound culture results. She was discharged on a course of cefuroxime 250 mg p.o. twice daily for 1 day. The night prior to admission patient experienced subjective fevers and epigastric abdominal pain. This morning she presented to Dr. Garcia, general surgeon for her routine follow-up who advised her to present to the ED. CT abdomen showed 8.4 x 4.9 cm abscess in gallbladder fossa. She underwent successful CT-guided drain placement on 09/18 and sample was started for Gram stain and culture. Currently patient on ceftriaxone 1 g IV twice daily for intra-abdominal abscess. Infectious disease, was consulted for recurrent intra- abdominal abscess. Discussed case with general surgery, Dr. Redding who recommended to wait for output of drain to decrease tube between 10-15 cc/day before obtaining repeat CT. Currently pending blood and wound cultures. Patient had 48 cc of pus drained past 24 hours. Wound culture grew E. coli sensitive to ceftriaxone. Urine culture grew Enterobacter resistant to ceftriaxone, however patient is asymptomatic. Blood cultures showed no bacterial growth x 48 hours preliminary. Infectious disease, Dr Machado consulted, appreciate recommendations. Plan of care discussed with Attending Dr. Jono Albarado MD PGY 2 Disclaimer: This note was dictated by speech recognition. Minor errors in corrugated box machine operator may be present due to voice recognition software. Documentation for date of: 09/19/25 Subjective Subjective Interval history: Patient seen and examined at bedside; no acute events overnight. Patient pain is improved compared to yesterday. Exam Vital Signs Temp Pulse Resp BP Pulse Ox O2 Del Method O2 Flow Rate 97.5 F 59 L 18 104/67 95 Room Air 3 09/19/25 08:00 09/19/25 08:00 09/19/25 08:00 09/19/25 08:00 09/19/25 08:00 09/19/25 08:00 09/17/25 15:32 Narrative Exam General: A/O x3, no acute distress, well-nourished, well-developed Eyes: PERRL, EOMI. Anicteric, vision grossly intact. Ears: No ear pain, no ear discharge, Hearing grossly intact. Nose: No nasal discharge. Mouth/Throat: Moist mucous membranes, no redness, no lesions. Neck: Neck supple, non-tender, no cervical lymphadenopathy. Lungs: Clear DOMINGA to auscultation and percussion, No accessory muscle use. Cardio: Normal S1/S2, regular rhythm, no murmurs, no JVD or carotid bruits. Abdomen: No r side abdominal pain today; drain in place and somewhat tender at site Extremities: Symmetrical, no significant deformities, no peripheral edema , non-tender, peripheral pulses present. Skin: No rashes, no lesions, warm to touch. Neuro: No focal neurological deficits. Psych: Cooperative, appropriate mood and effect. Objective Labs 09/19/25 04:56 09/19/25 04:56 Labs: Laboratory Results - last 24 hr 09/18/25 09/19/25 04:50 04:56 WBC 9.4 RBC 3.49 L Hgb 9.8 L Hct 31.1 L MCV 89 MCH 28.1 MCHC 31.5 RDW Std Deviation 41.9 Plt Count 456 H D Neut % (Auto) 64 Lymph % (Auto) 22 [place] % (Auto) 8 Eos % (Auto) 5 Baso % (Auto) 1 Neut # (Auto) 6.0 Lymph # (Auto) 2.1 [place] # (Auto) 0.7 Eos # (Auto) 0.5 Baso # (Auto) 0.1 Immature Gran # (Auto) 0.07 H Absolute Nucleated RBC 0.00 Immature Gran % 1 H Nucleated RBC % 0 Sodium 142 Potassium 4.0 Chloride 105 Carbon Dioxide 27.7 Anion Gap 9 BUN < 5 L Creatinine 0.6 Estim Creat Clear Calc 92.0 eGFR > 60 BUN/Creatinine Ratio 8 L Glucose 90 Calculated Osmolality 280 Calcium 9.1 Corrected Calcium 9.1 Phosphorus 4.8 Magnesium 1.8 Total Bilirubin 0.3 AST 19 ALT 16 Alkaline Phosphatase 116 Total Protein 6.2 6.6 Albumin 4.0 Globulin 2.5 2.6 Albumin/Globulin Ratio 1.5 1.5 Triglycerides 104 Cholesterol 130 L LDL Cholesterol, Calc 88 HDL Cholesterol 21 L Cholesterol/HDL Ratio 6.2 H Quality Measures Quality Measures none Assessment & Plan Assessment Current Active Medications: Generic Name Dose Route Start Last Admin Trade Name Freq PRN Reason Stop Dose Admin Acetaminophen 650 mg 09/17/25 14:15 Acetaminophen 325 Mg Tablet PO 10/17/25 14:14 Q6H PRN Fever >100.4 Acetaminophen 650 mg 09/17/25 14:15 Acetaminophen 325 Mg Tablet PO 10/17/25 14:14 Q6H PRN PAIN SCALE 1-3 (mild Hydrocodone Bitart/Acetaminophen 1 tab 09/18/25 11:00 09/19/25 07:59 Hydrocodone/Apap 5/325 Tablet PO 09/23/25 10:59 1 tab Q4HR PRN Administration PAIN SCALE 4-10(Mod-Sev Protocol Citalopram Hydrobromide 40 mg 09/17/25 14:45 09/19/25 07:59 Citalopram 20 Mg Tablet PO 10/17/25 14:44 40 mg QDAY JOYCELYN Administration Heparin Sodium (Porcine) 5,000 unit 09/17/25 14:30 09/19/25 05:29 Heparin Sod Inj 5000 Unit/Ml Vial SC 10/01/25 14:29 5,000 unit Q8HR JOYCELYN Administration Ceftriaxone Sodium/Dextrose 1 gm in 50 mls @ 100 mls/hr 09/17/25 21:00 09/19/25 07:59 Rocephin/D5w 1gm Iv Premix IV 09/24/25 14:33 100 mls/hr Q12HR JOYCELYN Administration Magnesium Sulfate 2 gm in 50 mls @ 25 mls/hr 09/19/25 08:48 Magnesium Sulfate Ivpb IV 09/19/25 10:47 X1 ONE Morphine Sulfate 2 mg 09/18/25 04:53 09/18/25 23:59 Morphine Sulf Inj 4 Mg/Ml Vial IVP 09/23/25 04:52 2 mg Q4HR PRN Administration BREAKTHROUGH PAIN Protocol Ondansetron HCl 4 mg 09/17/25 14:15 09/17/25 18:00 Ondansetron Inj 2 Mg/Ml Inj 2 Ml IVP 10/17/25 14:14 4 mg Q6H PRN Administration NAUSEA OR VOMITING Protocol Pantoprazole Sodium 40 mg 09/17/25 14:30 09/19/25 07:59 Pantoprazole Inj 40 Mg Vial IVP 10/17/25 14:29 40 mg QDAY JOYCELYN Administration Tramadol HCl 50 mg 09/18/25 17:56 09/18/25 18:11 Tramadol Hcl 50 Mg Tablet PO 09/23/25 17:55 50 mg Q4HR PRN Administration Pain 4-10 Plan Patient is a 60-year-old female with past medical history of degenerative disc disease, GERD, depression, and recent cholecystectomy presenting to the ED on 09/17/2025 for recurrent pain/fever. She was admitted on 09/17/25 for management of recurrent abscess at cholecystectomy site. #Recurrent intra-abdominal abscess in setting of recent cholecystectomy Patient has had significant right sided abdominal pain for 2 to 3 days; CT scan shows 8.4 cm abscess at gallbladder fossa. WBC 14.0 on admission from 10.6 on 09/05/2025. Blood, wound and urine cultures obtained. 09-18-25- WBC 10.3 from 14 yesterday; wound culture shows 4+ WBCs and fungal elements. Drain output is 55ml; Blood cultures show no growth after 24 hours. 09-19-25- Urine culture shows enterobacter; wound culture shows e coli; blood culture shows no growth at 48 hours Plan ? General Surgery consulted, drain placed, Dr. Redding said to keep patient until cultures result and drain output goes down ? Follow-up blood, wound, and urine cultures ? Morphine 2 mg IV every 4 hours as needed - Infectious disease consulted, appreciate recs #GERD Patient has history of GERD. Plan: ? Protonix 40 IV daily #Depression Patient takes citalopram 40 mg daily Plan: ? Restarted Disposition: Med-Tele DVT prophylaxis: Heparin 5000 subq TID GI prophylaxis: Protonix 40 IV Diet: regular Lines: PIV CODE STATUS: Full This case was discussed with my attending physician, Dr. De La Cruz, and senior resident, Dr. Albarado. Villa Coats, PGY1 Attending Provider Attestation/Addendum I have discussed and was present for the essential components of the history, physical examination, diagnosis, and treatment plan with the resident. I agree with the patient's care as documented by the resident and amended herein by me. Paco De La Cruz, DO. Although this document has been carefully reviewed, there may still be some phonetic and other typographical errors. These errors are purely grammatical due to imperfections in the software program and should not be construed in any way to compromise the substance of the patient's medical care during this visit.
--- NOTE | 2025-09-19 09:06 | PD.SURPROG ---
Documentation for date of: 09/19/25 Subjective Subjective Brief History: 60F with history of gastric bypass, GERD who was hospitalized with gallstone pancreatitis s/p lap rebecca 08/30/25, course complicated by gallbladder fossa abscess drained 09/03 which I removed 09/06 after symptoms resolved and abscess significantly decreased, unfortunately having the same symptoms again presenting to ER 09/17 with findings of another gallbladder fossa abscess drained on the same day. Today pt reports feeling better, however she still has episodes of pain which are only temporarily relieved by morphine. She denies nausea, is eating well and remaining afebrile with WBC 10 from 14. Drain had 55cc output so far Narrative: Pain well controlled with norco, no nausea and feeling much better overall, RUQ drain had 48cc output in last 24h, pt remaining afebrile with normal WBC Exam Vital Signs Temp Pulse Resp BP Pulse Ox O2 Del Method O2 Flow Rate 97.5 F 59 L 18 104/67 95 Room Air 3 09/19/25 08:00 09/19/25 08:00 09/19/25 08:00 09/19/25 08:00 09/19/25 08:00 09/19/25 08:00 09/17/25 15:32 Constitutional Constitutional: no acute distress Routine Respiratory Exam Respiratory: Present no resp distress Routine Abdominal Exam Abdominal: Present soft and drain (RUQ drain with minimal purulent output ); Absent tenderness or distended Results Results: Laboratory Laboratory Narrative: Cultures noted Laboratory results: results reviewed Assessment & Plan Plan 60F with history of gastric bypass, GERD who was hospitalized with gallstone pancreatitis s/p lap rebecca 08/30/25, course complicated by gallbladder fossa abscess drained 09/03-09/06, readmitted 09/17 with a second gallbladder fossa with a drain again in place. Clinically pt is overall well remaining afebrile with normalized WBC Flush drain with 10cc NS each shift (appears to have pus collected in suction chamber) Appreciate ID recs
--- NOTE | 2025-09-19 09:07 | PC.SS ---
Follow up note: Abscess drain is still draining. On IV antibiotic. Pt will return home upon dc.
[2025-09-19] MEDS: Magnesium Sulfate 2 GM Ivpb 2 GM/50 ML BAG IV (11:12)
--- NOTE | 2025-09-19 15:50 | ESCONSULT_ITS ---
<Statement entered by Jac Machado MD - 09/21/25 09:17> pt seen with resident. all findings confirmed. see additional notes for details HPI Data of Consult Requesting Physician: Matthew De La Cruz DO Admitting Provider: Lambert Malone MD Attending Provider: Matthew De La Cruz DO Primary Care Provider: Physician No Primary/Family Consult Narrative History of present illness: Ms. Jones is a 60-year-old female with past medical history of GERD, depression, and Hx. of gastric bypass surgery underwent laparoscopic cholecystectomy on 08/[address] Redding presented to the ED on 09/17/2025 for recurrent pain and fever. In ED, Pt underwent drainage of the abscess and accordion drain was placed by the IR. Pt is admitted to the hospital for ICV abx and for management of recurrent abscess at the gallbladder fossa. Pt was recently hospitalized from 09/03 to 09/06 for management of intra-abdominal abscess at the same site which was drain with TANYA drain. Cultures at that time grew E. Coli and Pt was adequately treated with IV abx and sent home with 1 day of oral abx with cefuroxime. After discharge home Pt states she was doing better however after few days started having increasing pain and noted to have fever and followed up with Dr. Redding outpatient who sent her to he ED for admission and drainage of the abscess. Primary team consulted ID for recommendation on IV vs. PO abx and duration for recurrent intra-abdominal abscess post laparoscopic surgery. PMH: Depression, GERD PSH: Appendectomy, Gastric Bypass , cholecystectomy 08/30/25 Allergies: NKDA Social history: Denies alcohol, tobacco and illicit drug use cc:: cc: Matthew De La Cruz DO Review of Systems Review of Systems Systems Reviewed: All systems reviewed, normal except as documented Exam Vital Signs Temp Pulse Resp BP Pulse Ox O2 Del Method O2 Flow Rate 97.5 F 60 18 107/66 95 Room Air 3 09/19/25 11:50 09/19/25 12:00 09/19/25 11:50 09/19/25 11:50 09/19/25 11:50 09/19/25 11:50 09/17/25 15:32 Narrative Exam GENERAL: A&Ox3 . Awake, Not in acute distress NEURO: no focal neurological deficits HEENT: Atraumatic, Normocephalic. mucous membranes moist. Eyes open, symmetrical, & clear HEART: Normal Heart Sounds LUNGS: Clear to auscultation with no wheezing or crackles. ABDOMEN: occordian drain with minimal output, andomin is soft, non-distended, tenderness on palpation, no guarding or rebound tenderness SKIN: No Rash or ecchymoses EXTREMITIES: No edema, tenderness, able to move all 4 extremities, pedal pulses palpated Results Labs 09/20/25 04:52 09/20/25 04:52 Labs: Short CBC 09/19/25 Range/Units 04:56 WBC 9.4 (3.6-11.0) Thou/mm3 Hgb 9.8 L (12.0-16.0) g/dL Hct 31.1 L (36.0-46.0) % Plt Count 456 H D (140-440) Thou/mm3 BMP 09/19/25 04:56 Sodium 142 Potassium 4.0 Chloride 105 Carbon Dioxide 27.7 BUN < 5 L Creatinine 0.6 Glucose 90 Calcium 9.1 Liver Function 09/19/25 Range/Units 04:56 Total Bilirubin 0.3 (0.3-1.2) mg/dL AST 19 (0-34) U/L ALT 16 (10-49) U/L Alkaline Phosphatase 116 (46-116) U/L Albumin 4.0 (3.4-4.8) gm/dL Quality Measures Quality Measures none Medications Home Medications and Allergies Home Medications ?Medication ?Instructions ?Recorded ?Confirmed ?Type citalopram 40 mg tablet (Celexa) 40 mg PO QDAY 5 09/17/25 History omeprazole 40 mg capsule,delayed 40 mg PO QDAY 5 09/17/25 History release Allergies Allergy/AdvReac Type Severity Reaction Status Date / Time No Known Allergies Allergy Verified 09/17/25 09:34 Visit Medications Acetaminophen (Acetaminophen 325 Mg Tablet) 650 mg PO Q6H PRN PRN Reason: Fever >100.4 Stop: 10/17/25 14:14 Acetaminophen (Acetaminophen 325 Mg Tablet) 650 mg PO Q6H PRN PRN Reason: PAIN SCALE 1-3 (mild Stop: 10/17/25 14:14 Hydrocodone Bitart/Acetaminophen (Hydrocodone/Apap 5/325 Tablet) 1 tab PO Q4HR PRN; Protocol PRN Reason: PAIN SCALE 4-10(Mod-Sev Stop: 09/23/25 10:59 Last Admin: 09/19/25 13:10 Dose: 1 tab Citalopram Hydrobromide (Citalopram 20 Mg Tablet) 40 mg PO QDAY [facility] Stop: 10/17/25 14:44 Last Admin: 09/19/25 07:59 Dose: 40 mg Heparin Sodium (Porcine) (Heparin Sod Inj 5000 Unit/Ml Vial) 5,000 unit SC Q8HR [facility] Stop: 10/01/25 14:29 Last Admin: 09/19/25 13:26 Dose: 5,000 unit Ceftriaxone Sodium/Dextrose (Rocephin/D5w 1gm Iv Premix) 1 gm in 50 mls @ 100 mls/hr IV Q12HR [facility] Stop: 09/24/25 14:33 Last Admin: 09/19/25 07:59 Dose: 100 mls/hr Morphine Sulfate (Morphine Sulf Inj 4 Mg/Ml Vial) 2 mg IVP Q4HR PRN; Protocol PRN Reason: BREAKTHROUGH PAIN Stop: 09/23/25 04:52 Last Admin: 09/18/25 23:59 Dose: 2 mg Ondansetron HCl (Ondansetron Inj 2 Mg/Ml Inj 2 Ml) 4 mg IVP Q6H PRN; Protocol PRN Reason: NAUSEA OR VOMITING Stop: 10/17/25 14:14 Last Admin: 09/17/25 18:00 Dose: 4 mg Pantoprazole Sodium (Pantoprazole Inj 40 Mg Vial) 40 mg IVP QDAY [facility] Stop: 10/17/25 14:29 Last Admin: 09/19/25 07:59 Dose: 40 mg Tramadol HCl (Tramadol Hcl 50 Mg Tablet) 50 mg PO Q4HR PRN PRN Reason: Pain 4-10 Stop: 09/23/25 17:55 Last Admin: 09/18/25 18:11 Dose: 50 mg Discontinued Medications Fentanyl Citrate (Fentanyl Cit Inj 50 Mcg/Ml Amp 2ml) 75 mcg IVP X1 ONE Stop: 09/17/25 15:17 Last Admin: 09/17/25 15:17 Dose: 75 mcg Ceftriaxone Sodium/Dextrose (Rocephin/D5w 1gm Iv Premix) 1 gm in 50 mls @ 100 mls/hr IV X1 ONE Stop: 09/17/25 12:35 Last Infusion: 09/17/25 12:49 Dose: Infused Sodium Chloride (Ns) 1,000 mls @ 999 mls/hr IV .Q1H1M ONE Stop: 09/17/25 13:08 Last Infusion: 09/17/25 13:21 Dose: Infused Magnesium Sulfate/Dextrose (Magnesium Sulfate Ivpb) 1 gm in 100 mls @ 100 mls/hr IV X1 ONE Stop: 09/18/25 09:25 Last Admin: 09/18/25 09:13 Dose: 100 mls/hr Magnesium Sulfate (Magnesium Sulfate Ivpb) 2 gm in 50 mls @ 25 mls/hr IV X1 ONE Stop: 09/19/25 10:47 Last Admin: 09/19/25 11:12 Dose: 25 mls/hr Lidocaine HCl (Lidocaine Inj Pf 1% 30 Ml Vial) 6 ml EPID X1 ONE Stop: 09/17/25 15:17 Last Admin: 09/17/25 15:29 Dose: 6 ml Morphine Sulfate (Morphine Sulf Inj 4 Mg/Ml Vial) 2 mg IVP Q4HR PRN PRN Reason: PAIN SCALE 4-10(Mod-Sev Last Admin: 09/18/25 01:22 Dose: 2 mg Assessment & Plan Plan Ms. Jones is a 60-year-old female with past medical history of GERD, depression, and Hx. of gastric bypass surgery underwent laparoscopic cholecystectomy on 08/[address] Redding presented to the ED on 09/17/2025 for recurrent pain and fever. Pt is admitted to the hospital for management of recurrently abscess at the gallbladder fossa. #Intra-abdominal abscess in setting of #Laparoscopic cholecystectomy on 08/30 -Pt was recently hospitalized from 09/03 to 09/06 for management of intra- abdominal abscess at the same site which was drain with TANYA drain which was then removed before discharge. Cultures at that time grew E. Coli and Pt was adequately treated with IV abx and sent home with 1 day of oral abx with cefuroxime. -CT abdomen Pelvis- 8.3 x 4.9 cm abscess in the gallbladder fossa -Pt underwent drainage of the abscess and accordion drain was placed by the IR on 09/17 -Abscess culture grew E. Coli Plan: -Continue IV Ceftriaxone for 5 days 09/17-09/21 -Pt may continue oral abx after 5 days if IV abx #GERD #Depression -continue management as per primary team Assessment and plan discussed with my attending physician Dr. Carter Donnelly (PGY-2)- Internal medicine resident
--- NOTE | 2025-09-19 16:16 | ESPR_ITS ---
Subjective Subjective Interval history: recurrent abscess abd. drain in and not left in apparently. cx noted. some fungal elements but no yeast on cx. Exam Vital Signs Temp Pulse Resp BP Pulse Ox O2 Del Method O2 Flow Rate 97.8 F 60 18 109/59 L 94 L Room Air 3 09/19/25 15:55 09/19/25 15:55 09/19/25 15:55 09/19/25 15:55 09/19/25 15:55 09/19/25 15:55 09/17/25 15:32 Narrative Exam abd sl tender near drain. rest of abd benign. pt alert. well appearing Objective - Internal Medicine Labs 09/19/25 04:56 09/19/25 04:56 Labs: Laboratory Results - last 24 hr 09/19/25 04:56 WBC 9.4 RBC 3.49 L Hgb 9.8 L Hct 31.1 L MCV 89 MCH 28.1 MCHC 31.5 RDW Std Deviation 41.9 Plt Count 456 H D Neut % (Auto) 64 Lymph % (Auto) 22 [place] % (Auto) 8 Eos % (Auto) 5 Baso % (Auto) 1 Neut # (Auto) 6.0 Lymph # (Auto) 2.1 [place] # (Auto) 0.7 Eos # (Auto) 0.5 Baso # (Auto) 0.1 Immature Gran # (Auto) 0.07 H Absolute Nucleated RBC 0.00 Immature Gran % 1 H Nucleated RBC % 0 Sodium 142 Potassium 4.0 Chloride 105 Carbon Dioxide 27.7 Anion Gap 9 BUN < 5 L Creatinine 0.6 Estim Creat Clear Calc 92.0 eGFR > 60 BUN/Creatinine Ratio 8 L Glucose 90 Calculated Osmolality 280 Calcium 9.1 Corrected Calcium 9.1 Phosphorus 4.8 Magnesium 1.8 Total Bilirubin 0.3 AST 19 ALT 16 Alkaline Phosphatase 116 Total Protein 6.6 Albumin 4.0 Globulin 2.6 Albumin/Globulin Ratio 1.5 Assessment & Plan A&P Narrative recurrent abd abscess recent rebecca there was a study (the stop-it study) that favored 5d of rx today is day 3, started 09/17 with rocephin to which the germ was S if desired you can send her home on keflex 1000 tid for a few more days after the iv rx finished, will check chart briefly on Wednesday. f/u will have to be with the primary team. I can not see her in clinic. the oral rx may not do much but is popular. Time Spent With Patient Time: Total time spent is greater than 50% in coordination of care (as documented) at patient's floor/unit and/or counseling patient:
[2025-09-20] VITALS (9 sets, daily range): BP systolic 105–122; BP diastolic 46–70; PULSE 60–84; RESP 17–18; TEMP 36.1–36.6; O2SAT 92–97
[2025-09-20] MEDS: MORPHINE SULF INJ 4 MG/ML VIAL 2 MG IVP (00:55)
[2025-09-20 05:50] LABS: Basophils # (Auto) 0.1 Thou/mm3 (0.0-0.2); Basophils % (Auto) 1 % (0-2.5); Eosinophils # (Auto) 0.7 Thou/mm3 (0.0-0.5); Eosinophils % (Auto) 6 % (0-10); Hematocrit 31.6 % (36.0-46.0); Hemoglobin 10.1 g/dL (12.0-16.0); Immature Granulocytes Auto 0.11 Thou/mm3 (0.00-0.00); Lymphocytes # (Auto) 2.0 Thou/mm3 (1.0-4.8); Lymphocytes % (Auto) 18 % (10-50); Mean Corpuscular HGB Conc 32.0 g/dl (31.0-37.0); Mean Corpuscular Hemoglobin 28.2 pg (25.0-35.0); Mean Corpuscular Volume 88 fL (80-100); Monocytes # (Auto) 0.8 Thou/mm3 (0.0-0.8); Monocytes % (Auto) 7 % (0-12); Neutrophils # (Auto) 7.4 Thou/mm3 (1.8-7.7); Neutrophils % (Auto) 67 % (37-80); Nucleated Red Blood Cell # 0.00 Thou/mm3 (0.00-0.00); Nucleated Red Blood Cell % 0 /100 WBC (0); Platelet Count 500 Thou/mm3 (140-440); RDW Standard Deviation 41.7 fL (36.4-46.3); Red Blood Count 3.58 Miln/mm3 (4.00-5.20); White Blood Count 11.0 Thou/mm3 (3.6-11.0)
[2025-09-20] MEDS: HEPARIN SOD INJ 5000 UNIT/ML VIAL SC ×2 (06:07→21:05)
[2025-09-20 06:28] LABS: Alanine Aminotransferase 13 U/L (10-49); Albumin, Serum 4.1 gm/dL (3.4-4.8); Albumin/Globulin Ratio 1.5 (1.2-2.2); Alkaline Phosphatase 114 U/L (46-116); Anion Gap 11 (7-16); Aspartate Amino Transferase 18 U/L (0-34); BUN/Creatinine Ratio 8 Ratio (12-20); Bilirubin,Total 0.2 mg/dL (0.3-1.2); Blood Urea Nitrogen < 5 mg/dL (9-23); Calcium 8.7 mg/dL (8.3-10.6); Calcium (Corrected) 8.7 mg/dL (8.5-10.1); Carbon Dioxide 28.3 mMol/L (20.0-31.0); Chloride 103 mMol/L (98-107); Creatinine (Component) 0.6 mg/dL (0.6-1.3); Estimated Creatinine Clearance 92.0 mL/min (>60); Globulin 2.7 gm/dL (2.3-3.5); Glucose 97 mg/dL (74-106); Magnesium 1.8 mg/dL (1.6-2.6); Osmolality,Calculated 280 (275-295); Phosphorous 3.6 mg/dL (2.4-5.1); Potassium 3.5 mMol/L (3.4-5.1); Sodium 142 mMol/L (136-145); Total Protein 6.8 gm/dL (5.7-8.2); eGFR > 60 See Note
[2025-09-20 06:49] LABS: Hepatitis C Antibody Non Reactive (Non React)
--- NOTE | 2025-09-20 08:13 | XR_ITS ---
Examination: CT abdomen with intravenous contrast CT pelvis with intravenous contrast 2-D coronal reconstructions 2-D sagittal reconstructions Date and time of exam: September 20, 2025, 0912 hours, comparison September 17, 2025 INDICATIONS: History gallbladder fossa abscess, post catheter placement for drainage. CTDI: vol (mGy) 9.33 DLP: (mGycm) 533 Technique: Multiple axial sections of the abdomen and pelvis have been obtained. 64 slice high-resolution scanner used. 3 mm axial sections have been obtained, post intravenous injection 60 cc Isovue 370 2-D sagittal, coronal reconstructions obtained. Low dose protocols were performed. One or more of the following dose reduction techniques were used; automated exposure control, adjustment of the mA and/or KV according to patient size, use of iterative reconstruction technique. Findings: The patient's drainage catheter has been partially pulled out Gallbladder fossa infection, abscess is again depicted CT scan is otherwise unchanged from September 17, 2025 IMPRESSION: The patient's abscess drainage catheter needs to be repositioned in the gallbladder fossa
[2025-09-20] MEDS: HYDROcodone/APAP 5/325 TABLET 1 TAB PO ×2 (08:53→18:26)
[2025-09-20] MEDS: CITALOPRAM 20 MG TABLET 40 MG PO (08:54)
[2025-09-20] MEDS: RINGERS LACTATED 1000 ML 1,000 ML 125 ML IV (09:31)
[2025-09-20] MEDS: cefTRIAXone/D5w 1gm IV premix 1 GM/50 ML BAG IV ×2 (09:31→21:04)
[2025-09-20 10:30] LABS: HIV (1&2) Antibody Rapid Non-Reactive
--- NOTE | 2025-09-20 14:09 | ESPR_ITS ---
Documentation for date of: 09/20/25 Subjective Subjective Brief History: 60F with history of gastric bypass, GERD who was hospitalized with gallstone pancreatitis s/p lap rebecca 08/30/25, course complicated by gallbladder fossa abscess drained 09/03 which I removed 09/06 after symptoms resolved and abscess significantly decreased, unfortunately having the same symptoms again presenting to ER 09/17 with findings of another gallbladder fossa abscess drained on the same day. Today pt reports feeling better, however she still has episodes of pain which are only temporarily relieved by morphine. She denies nausea, is eating well and remaining afebrile with WBC 10 from 14. Drain had 55cc output so far Narrative: Pain well controlled, no nausea, tolerating diet and having regular bladder and bowel function, remaining afebrile with normal WBC, drain had only 12cc output since yesterday and is not holding suction, found to be outside of the collection on repeat CT today Exam Vital Signs Temp Pulse Resp BP Pulse Ox O2 Del Method O2 Flow Rate 97.0 F 65 18 105/65 96 Room Air 3 09/20/25 11:42 09/20/25 12:00 09/20/25 11:42 09/20/25 11:42 09/20/25 11:42 09/20/25 11:42 09/17/25 15:32 Constitutional Constitutional: no acute distress Routine Respiratory Exam Respiratory: Present no resp distress Routine Abdominal Exam Abdominal: Present soft and drain (RUQ drain with scant purulent output); Absent tenderness or distended Results Results: Laboratory Laboratory results: results reviewed Results: Imaging CT scan - abdomen: report reviewed and image reviewed Assessment & Plan Plan 60F with history of gastric bypass, GERD who was hospitalized with gallstone pancreatitis s/p lap rebecca 08/30/25, course complicated by gallbladder fossa ab scess drained 09/03-09/06, readmitted 09/17 with a second gallbladder fossa with a drain again in place Appreciate IR drain repositioning/replacement Continue strict I&O, repeat CT when output <20cc/24h for two consecutive days
--- NOTE | 2025-09-20 14:23 | ESPR_ITS ---
<Statement entered by Rocky Albarado MD - 09/21/25 15:20> I saw and examined patient personally and supervised PGY 1 resident, Dr. Mobley with formulating a management plan. I agree with the documentation with the exceptions as listed below. Patient is a 60-year-old female with past medical history of degenerative disc disease, GERD, depression, and recent cholecystectomy presenting to the ED on 09/17/2025 for recurrent pain/fever. She was admitted on 09/17/25 for management of recurrent abscess at cholecystectomy site. Problem list: 1. Recurrent intra-abdominal abscess s/p laparoscopic cholecystectomy on . 2. GERD 3. Depression 4. History of Dilan-en-Y gastric bypass Patient underwent laparoscopic cholecystectomy on 08/30/2025 and was subsequently discharged on 08/31. She was readmitted and had gallbladder fossa abscess drainage on 09/03 subsequently discharged on 09/06 after completing a 1 day course of Zosyn IV which was narrowed to ceftriaxone IV after wound culture results. She was discharged on a course of cefuroxime 250 mg p.o. twice daily for 1 day. The night prior to admission patient experienced subjective fevers and epigastric abdominal pain. This morning she presented to Dr. Garcia, general surgeon for her routine follow-up who advised her to present to the ED. CT abdomen showed 8.4 x 4.9 cm abscess in gallbladder fossa. She underwent successful CT-guided drain placement on 09/18 and sample was started for Gram stain and culture. Currently patient on ceftriaxone 1 g IV twice daily for intra-abdominal abscess. Infectious disease, was consulted for recurrent intra- abdominal abscess. Discussed case with general surgery, Dr. Redding who recommended to wait for output of drain to decrease tube between 10-15 cc/day before obtaining repeat CT. Currently pending blood and wound cultures. Patient had 15 cc of pus drained past 24 hours. Wound culture grew E. coli sensitive to ceftriaxone. Urine culture grew Enterobacter resistant to ceftriaxone, however patient is asymptomatic. Blood cultures showed no bacterial growth x 48 hours preliminary. Infectious disease, Dr Machado recommended patient complete a total of 5 days IV antibiotics for recurrent intra abdominal abscess as outlined in the STOP-IT trial, upon discharge we will send her with a course of p.o. antibiotics. We will keep her until 09/21 to complete a total of 5 days of IV antibiotics. She had repeat CT scan today which showed dislodged intra-abdominal drain and recommended it to be replaced. Interventional radiologist, Dr. Meeks was attempted to be contacted to replace the drain, however was unsuccessful. We will attempt tomorrow for repositioning of the drain by IR. Plan of care discussed with Attending Dr. Jono Albarado MD PGY 2 Disclaimer: This note was dictated by speech recognition. Minor errors in engineering vice president may be present due to voice recognition software. Documentation for date of: 09/20/25 Subjective Subjective Interval history: Patient seen and examined at bedside; no acute events overnight. Patient pain is improved. Pt had 12cc of additional output from her drain. CTAP ordered which showed the drain to have been repositioned, and after speaking to Dr. Mittal IR recommended new order for CT guided drainage to be placed. Patient will under go the procedure tomorrow. Patient was informed about the imaging results. Exam Vital Signs Temp Pulse Resp BP Pulse Ox O2 Del Method O2 Flow Rate 97.0 F 65 18 105/65 96 Room Air 3 09/20/25 11:42 09/20/25 12:00 09/20/25 11:42 09/20/25 11:42 09/20/25 11:42 09/20/25 11:42 09/17/25 15:32 Narrative Exam General: A/O x3, no acute distress, well-nourished, well-developed Eyes: PERRL, EOMI. Anicteric, vision grossly intact. Ears: No ear pain, no ear discharge, Hearing grossly intact. Nose: No nasal discharge. Mouth/Throat: Moist mucous membranes, no redness, no lesions. Neck: Neck supple, non-tender, no cervical lymphadenopathy. Lungs: Clear [place] to auscultation and percussion, No accessory muscle use. Cardio: Normal S1/S2, regular rhythm, no murmurs, no JVD or carotid bruits. Abdomen: No r side abdominal pain today; drain in place and somewhat tender at site Extremities: Symmetrical, no significant deformities, no peripheral edema , non-tender, peripheral pulses present. Skin: No rashes, no lesions, warm to touch. Neuro: No focal neurological deficits. Psych: Cooperative, appropriate mood and effect. Objective Labs 09/21/25 04:35 09/21/25 04:35 Labs: Laboratory Results - last 24 hr 09/20/25 04:52 WBC 11.0 RBC 3.58 L Hgb 10.1 L Hct 31.6 L MCV 88 MCH 28.2 MCHC 32.0 RDW Std Deviation 41.7 Plt Count 500 H D Neut % (Auto) 67 Lymph % (Auto) 18 [place] % (Auto) 7 Eos % (Auto) 6 Baso % (Auto) 1 Neut # (Auto) 7.4 Lymph # (Auto) 2.0 [place] # (Auto) 0.8 Eos # (Auto) 0.7 H Baso # (Auto) 0.1 Immature Gran # (Auto) 0.11 H Absolute Nucleated RBC 0.00 Immature Gran % 1 H Nucleated RBC % 0 Sodium 142 Potassium 3.5 D Chloride 103 Carbon Dioxide 28.3 Anion Gap 11 BUN < 5 L Creatinine 0.6 Estim Creat Clear Calc 92.0 eGFR > 60 BUN/Creatinine Ratio 8 L Glucose 97 Calculated Osmolality 280 Calcium 8.7 Corrected Calcium 8.7 Phosphorus 3.6 Magnesium 1.8 Total Bilirubin 0.2 L AST 18 ALT 13 Alkaline Phosphatase 114 Total Protein 6.8 Albumin 4.1 Globulin 2.7 Albumin/Globulin Ratio 1.5 Hepatitis C Antibody Non Reactive HIV 1&2 Antibody Rapid Non-Reactive Quality Measures Quality Measures none Assessment & Plan Assessment Current Active Medications: Generic Name Dose Route Start Last Admin Trade Name Nikoq PRN Reason Stop Dose Admin Acetaminophen 650 mg 09/17/25 14:15 Acetaminophen 325 Mg Tablet PO 10/17/25 14:14 Q6H PRN Fever >100.4 Acetaminophen 650 mg 09/17/25 14:15 Acetaminophen 325 Mg Tablet PO 10/17/25 14:14 Q6H PRN PAIN SCALE 1-3 (mild Hydrocodone Bitart/Acetaminophen 1 tab 09/18/25 11:00 09/20/25 08:53 Hydrocodone/Apap 5/325 Tablet PO 09/23/25 10:59 1 tab Q4HR PRN Administration PAIN SCALE 4-10(Mod-Sev Protocol Citalopram Hydrobromide 40 mg 09/17/25 14:45 09/20/25 08:54 Citalopram 20 Mg Tablet PO 10/17/25 14:44 40 mg QDAY JOYCELYN Administration Heparin Sodium (Porcine) 5,000 unit 09/17/25 14:30 09/20/25 13:51 Heparin Sod Inj 5000 Unit/Ml Vial SC 10/01/25 14:29 Not Given Q8HR JOYCELYN Ceftriaxone Sodium/Dextrose 1 gm in 50 mls @ 100 mls/hr 09/17/25 21:00 09/20/25 09:31 Rocephin/D5w 1gm Iv Premix IV 09/24/25 14:33 100 mls/hr Q12HR JOYCELYN Administration Lactated Ringer's 1,000 mls @ 125 mls/hr 09/20/25 08:03 09/20/25 09:31 Lactated Ringers IV 09/20/25 16:02 125 mls/hr .Q8H ONE Administration Morphine Sulfate 2 mg 09/18/25 04:53 09/20/25 00:55 Morphine Sulf Inj 4 Mg/Ml Vial IVP 09/23/25 04:52 2 mg Q4HR PRN Administration BREAKTHROUGH PAIN Protocol Ondansetron HCl 4 mg 09/17/25 14:15 09/17/25 18:00 Ondansetron Inj 2 Mg/Ml Inj 2 Ml IVP 10/17/25 14:14 4 mg Q6H PRN Administration NAUSEA OR VOMITING Protocol Pantoprazole Sodium 40 mg 09/17/25 14:30 09/20/25 09:31 Pantoprazole Inj 40 Mg Vial IVP 10/17/25 14:29 40 mg QDAY JOYCELYN Administration Tramadol HCl 50 mg 09/18/25 17:56 09/18/25 18:11 Tramadol Hcl 50 Mg Tablet PO 09/23/25 17:55 50 mg Q4HR PRN Administration Pain 4-10 Plan Patient is a 60-year-old female with past medical history of degenerative disc disease, GERD, depression, and recent cholecystectomy presenting to the ED on 09/17/2025 for recurrent pain/fever. She was admitted on 09/17/25 for management of recurrent abscess at cholecystectomy site. #Recurrent intra-abdominal abscess in setting of recent cholecystectomy Patient has had significant right sided abdominal pain for 2 to 3 days; CT scan shows 8.4 cm abscess at gallbladder fossa. WBC 14.0 on admission from 10.6 on 09/05/2025. Blood, wound and urine cultures obtained. 09-18-25- WBC 10.3 from 14 yesterday; wound culture shows 4+ WBCs and fungal elements. Drain output is 55ml; Blood cultures show no growth after 24 hours. 09-19-25- Urine culture shows enterobacter; wound culture shows E coli; blood culture shows no growth at 48 hours 09/20 drain output is 12cc. CTAP shows that the drainage catheter has been partially pulled out. GB fossa infection, abscess is depicted again. Plan - Repeat CT-guided IR drain placement at the GB fossa abscess ? General Surgery consulted, drain placed, Dr. Redding said to keep patient until cultures result and drain output goes down ? Follow-up blood, wound, and urine cultures ? Morphine 2 mg IV every 4 hours as needed - Infectious disease consulted, appreciate recs #GERD Patient has history of GERD. Plan: ? Protonix 40 IV daily #Depression Patient takes citalopram 40 mg daily Plan: ? Restarted Disposition: Med-Tele DVT prophylaxis: Heparin 5000 subq TID GI prophylaxis: Protonix 40 IV Diet: regular Lines: PIV CODE STATUS: Full This case was discussed with my attending physician, Dr. De La Cruz, and senior resident, Dr Albarado. Even though this this note was carefully revised there may still be minor errors in engineering vice president due to voice recognition software. Janey Mobley DO PGY I Attending Provider Attestation/Addendum I have discussed and was present for the essential components of the history, physical examination, diagnosis, and treatment plan with the resident. I agree with the patient's care as documented by the resident and amended herein by me. Paco De La Cruz DO. Although this document has been carefully reviewed, there may still be some phonetic and other typographical errors. These errors are purely grammatical due to imperfections in the software program and should not be construed in any way to compromise the substance of the patient's medical care during this visit.
[2025-09-21] VITALS (14 sets, daily range): BP systolic 95–130; BP diastolic 39–78; PULSE 61–84; RESP 14–20; TEMP 36.1–36.6; O2SAT 93–98; BMI 27.1
[2025-09-21] MEDS: MORPHINE SULF INJ 4 MG/ML VIAL 2 MG IVP ×2 (02:07→11:41)
[2025-09-21 05:51] LABS: Basophils # (Auto) 0.1 Thou/mm3 (0.0-0.2); Basophils % (Auto) 1 % (0-2.5); Eosinophils # (Auto) 0.6 Thou/mm3 (0.0-0.5); Eosinophils % (Auto) 7 % (0-10); Hematocrit 30.0 % (36.0-46.0); Hemoglobin 9.6 g/dL (12.0-16.0); Immature Granulocytes Auto 0.12 Thou/mm3 (0.00-0.00); Lymphocytes # (Auto) 2.1 Thou/mm3 (1.0-4.8); Lymphocytes % (Auto) 25 % (10-50); Mean Corpuscular HGB Conc 32.0 g/dl (31.0-37.0); Mean Corpuscular Hemoglobin 28.5 pg (25.0-35.0); Mean Corpuscular Volume 89 fL (80-100); Monocytes # (Auto) 0.7 Thou/mm3 (0.0-0.8); Monocytes % (Auto) 9 % (0-12); Neutrophils # (Auto) 4.8 Thou/mm3 (1.8-7.7); Neutrophils % (Auto) 57 % (37-80); Nucleated Red Blood Cell # 0.00 Thou/mm3 (0.00-0.00); Nucleated Red Blood Cell % 0 /100 WBC (0); Platelet Count 422 Thou/mm3 (140-440); RDW Standard Deviation 42.5 fL (36.4-46.3); Red Blood Count 3.37 Miln/mm3 (4.00-5.20); White Blood Count 8.3 Thou/mm3 (3.6-11.0)
[2025-09-21 06:23] LABS: Alanine Aminotransferase 11 U/L (10-49); Albumin, Serum 3.7 gm/dL (3.4-4.8); Albumin/Globulin Ratio 1.5 (1.2-2.2); Alkaline Phosphatase 100 U/L (46-116); Anion Gap 10 (7-16); Aspartate Amino Transferase 16 U/L (0-34); BUN/Creatinine Ratio 10 Ratio (12-20); Bilirubin,Total 0.2 mg/dL (0.3-1.2); Blood Urea Nitrogen 6 mg/dL (9-23); Calcium 8.8 mg/dL (8.3-10.6); Calcium (Corrected) 9.0 mg/dL (8.5-10.1); Carbon Dioxide 29.2 mMol/L (20.0-31.0); Chloride 106 mMol/L (98-107); Creatinine (Component) 0.6 mg/dL (0.6-1.3); Estimated Creatinine Clearance 92.0 mL/min (>60); Globulin 2.5 gm/dL (2.3-3.5); Glucose 90 mg/dL (74-106); Magnesium 1.8 mg/dL (1.6-2.6); Osmolality,Calculated 286 (275-295); Potassium 3.9 mMol/L (3.4-5.1); Sodium 145 mMol/L (136-145); Total Protein 6.2 gm/dL (5.7-8.2); eGFR > 60 See Note
--- NOTE | 2025-09-21 07:00 | XR_ITS ---
Examination: CT-guided percutaneous placement abscess drainage catheter gallbladder fossa CT abdomen without intravenous contrast INDICATIONS: Gallbladder fossa abscess post cholecystectomy, the patient's percutaneous drain pulled out on CT examination September 20, 2025 Date and time of procedure: September 21, 2025 0941 hours Informed consent provided. A timeout was completed verifying correct patient, procedure, site and positioning. Technique: Axial 3 mm sections were obtained for localization of the gallbladder fossa Appropriate area is marked. The patient's site was prepped and draped in sterile fashion Maximal sterile barrier technique utilized, including hand hygiene Local anesthesia was obtained with 1% lidocaine. Low dose protocols were performed. One or more of the following dose reduction techniques were used; automated exposure control, adjustment of the mA and/or KV according to patient size, use of iterative reconstruction technique. Utilizing CT fluoroscopic guidance 5 [place] catheter percutaneously placed in the gallbladder fossa abscess 5 cc purulent material withdrawn and placed in culture medium for culture and sensitivity 0.35 wire guided introduced through the catheter followed by dilators and an 8 [place] pigtail abscess drainage catheter in proper position under fluoroscopic guidance Patient appears in stable condition during this procedure. At completion of the procedure, the patient is in satisfactory condition. Estimated blood loss 2 cc Complete culture and sensitivity report to follow. Impression: Successful CT-guided percutaneous placement abscess drainage catheter gallbladder fossa
--- NOTE | 2025-09-21 08:39 | PC.SS ---
Follow up note: Replace drain by IR. Pt will return home upon dc.
[2025-09-21 08:42] LABS: INR 1.0 (0.9-1.3); Partial Thromboplastin Time 32.8 Seconds (22.0-36.0); Prothrombin Time 10.2 Seconds (9.0-12.2)
--- NOTE | 2025-09-21 09:41 | PD.IDPROG ---
Subjective Subjective Interval history: stopped iv rocephin. no objection to po agent for a few more days and outpt f/u with surgery. will see again prn, hiv and hep c neg Exam Vital Signs Temp Pulse Resp BP Pulse Ox O2 Del Method O2 Flow Rate 97.5 F 71 14 126/71 93 L Room Air 3 09/21/25 08:32 09/21/25 08:32 09/21/25 08:32 09/21/25 08:32 09/21/25 08:32 09/21/25 08:32 09/17/25 15:32 Narrative Exam limited eval today Objective - Internal Medicine Labs 09/21/25 04:35 09/21/25 04:35 Labs: Laboratory Results - last 24 hr 09/20/25 09/21/25 04:52 04:35 WBC 8.3 RBC 3.37 L Hgb 9.6 L Hct 30.0 L MCV 89 MCH 28.5 MCHC 32.0 RDW Std Deviation 42.5 Plt Count 422 D Neut % (Auto) 57 Lymph % (Auto) 25 [place] % (Auto) 9 Eos % (Auto) 7 Baso % (Auto) 1 Neut # (Auto) 4.8 Lymph # (Auto) 2.1 [place] # (Auto) 0.7 Eos # (Auto) 0.6 H Baso # (Auto) 0.1 Immature Gran # (Auto) 0.12 H Absolute Nucleated RBC 0.00 Immature Gran % 1 H Nucleated RBC % 0 PT 10.2 INR 1.0 APTT 32.8 Sodium 145 Potassium 3.9 Chloride 106 Carbon Dioxide 29.2 Anion Gap 10 BUN 6 L Creatinine 0.6 Estim Creat Clear Calc 92.0 eGFR > 60 BUN/Creatinine Ratio 10 L Glucose 90 Calculated Osmolality 286 Calcium 8.8 Corrected Calcium 9.0 Magnesium 1.8 Total Bilirubin 0.2 L AST 16 ALT 11 Alkaline Phosphatase 100 Total Protein 6.2 Albumin 3.7 Globulin 2.5 Albumin/Globulin Ratio 1.5 HIV 1&2 Antibody Rapid Non-Reactive Assessment & Plan A&P Narrative recurrent abd abscess recent rebecca there was a study (the stop-it study) that favored 5d of rx today is day 3, started 09/17 with rocephin to which the germ was S if desired you can send her home on keflex 1000 tid for a few more days after the iv rx finished, will check chart briefly on Wednesday. f/u will have to be with the primary team. I can not see her in clinic. the oral rx may not do much but is popular. will see again prn Time Spent With Patient Time: Total time spent is greater than 50% in coordination of care (as documented) at patient's floor/unit and/or counseling patient:
[2025-09-21] MEDS: fentaNYL CIT INJ 50 mCg/ML AMP 2ML IVP (09:45)
[2025-09-21] MEDS: LIDOCAINE INJ PF 1% 30 ML VIAL 12 ML EPID (09:57)
[2025-09-21] MEDS: HYDROcodone/APAP 5/325 TABLET 1 TAB PO ×2 (14:02→20:10)
[2025-09-21] MEDS: HEPARIN SOD INJ 5000 UNIT/ML VIAL SC ×2 (14:37→21:51)
--- NOTE | 2025-09-21 17:30 | ESPR_ITS ---
<Statement entered by Rocky Albarado MD - 09/21/25 22:40> I saw and examined patient personally and supervised PGY 1 resident, Dr. Mobley with formulating a management plan. I agree with the documentation with the exceptions as listed below. Patient had successful replacement of gallbladder fossa abscess drain today by interventional radiology. Once drainage is less than 15 cc/day, will repeat CT abdomen pelvis. Today was day 5 of Zosyn IV for intra-abdominal abscess. Plan of care discussed with Attending Dr. Jono Albarado MD PGY 2 Disclaimer: This note was dictated by speech recognition. Minor errors in grain elevator worker may be present due to voice recognition software. Documentation for date of: 09/21/25 Subjective Subjective Interval history: Patient seen and examined at bedside; no acute events overnight. Patient pain is improved. She reports pain with flushes of the drain. Heparin was held overnight. Patient underwent successful drain placement after heparin was held this morning. Diet resumed post-procedure. Exam Vital Signs Temp Pulse Resp BP Pulse Ox O2 Del Method O2 Flow Rate 97.4 F 61 18 101/54 L 96 Room Air 3 09/21/25 16:00 09/21/25 16:00 09/21/25 16:00 09/21/25 16:00 09/21/25 16:00 09/21/25 16:00 09/21/25 10:00 Narrative Exam General: A/O x3, no acute distress, well-nourished, well-developed Eyes: PERRL, EOMI. Anicteric, vision grossly intact. Ears: No ear pain, no ear discharge, Hearing grossly intact. Nose: No nasal discharge. Mouth/Throat: Moist mucous membranes, no redness, no lesions. Neck: Neck supple, non-tender, no cervical lymphadenopathy. Lungs: Clear DOMINGA to auscultation and percussion, No accessory muscle use. Cardio: Normal S1/S2, regular rhythm, no murmurs, no JVD or carotid bruits. Abdomen: No r side abdominal pain today; drain in place and somewhat tender at site Extremities: Symmetrical, no significant deformities, no peripheral edema , non-tender, peripheral pulses present. Skin: No rashes, no lesions, warm to touch. Neuro: No focal neurological deficits. Psych: Cooperative, appropriate mood and effect. Objective Labs 09/21/25 04:35 09/21/25 04:35 Labs: Laboratory Results - last 24 hr 09/21/25 04:35 WBC 8.3 RBC 3.37 L Hgb 9.6 L Hct 30.0 L MCV 89 MCH 28.5 MCHC 32.0 RDW Std Deviation 42.5 Plt Count 422 D Neut % (Auto) 57 Lymph % (Auto) 25 [place] % (Auto) 9 Eos % (Auto) 7 Baso % (Auto) 1 Neut # (Auto) 4.8 Lymph # (Auto) 2.1 [place] # (Auto) 0.7 Eos # (Auto) 0.6 H Baso # (Auto) 0.1 Immature Gran # (Auto) 0.12 H Absolute Nucleated RBC 0.00 Immature Gran % 1 H Nucleated RBC % 0 PT 10.2 INR 1.0 APTT 32.8 Sodium 145 Potassium 3.9 Chloride 106 Carbon Dioxide 29.2 Anion Gap 10 BUN 6 L Creatinine 0.6 Estim Creat Clear Calc 92.0 eGFR > 60 BUN/Creatinine Ratio 10 L Glucose 90 Calculated Osmolality 286 Calcium 8.8 Corrected Calcium 9.0 Magnesium 1.8 Total Bilirubin 0.2 L AST 16 ALT 11 Alkaline Phosphatase 100 Total Protein 6.2 Albumin 3.7 Globulin 2.5 Albumin/Globulin Ratio 1.5 Quality Measures Quality Measures none Assessment & Plan Assessment Current Active Medications: Generic Name Dose Route Start Last Admin Trade Name Freq PRN Reason Stop Dose Admin Acetaminophen 650 mg 09/17/25 14:15 Acetaminophen 325 Mg Tablet PO 10/17/25 14:14 Q6H PRN Fever >100.4 Acetaminophen 650 mg 09/17/25 14:15 Acetaminophen 325 Mg Tablet PO 10/17/25 14:14 Q6H PRN PAIN SCALE 1-3 (mild Hydrocodone Bitart/Acetaminophen 1 tab 09/18/25 11:00 09/21/25 14:02 Hydrocodone/Apap 5/325 Tablet PO 09/23/25 10:59 1 tab Q4HR PRN Administration PAIN SCALE 4-10(Mod-Sev Protocol Citalopram Hydrobromide 40 mg 09/17/25 14:45 09/21/25 09:36 Citalopram 20 Mg Tablet PO 10/17/25 14:44 Not Given QDAY JOYCELYN Heparin Sodium (Porcine) 5,000 unit 09/17/25 14:30 09/21/25 14:37 Heparin Sod Inj 5000 Unit/Ml Vial SC 10/01/25 14:29 5,000 unit Q8HR JOYCELYN Administration Morphine Sulfate 2 mg 09/18/25 04:53 09/21/25 11:41 Morphine Sulf Inj 4 Mg/Ml Vial IVP 09/23/25 04:52 2 mg Q4HR PRN Administration BREAKTHROUGH PAIN Protocol Ondansetron HCl 4 mg 09/17/25 14:15 09/17/25 18:00 Ondansetron Inj 2 Mg/Ml Inj 2 Ml IVP 10/17/25 14:14 4 mg Q6H PRN Administration NAUSEA OR VOMITING Protocol Pantoprazole Sodium 40 mg 09/22/25 09:00 Pantoprazole 40 Mg Tablet PO 10/22/25 08:59 QDAY JOYCELYN Tramadol HCl 50 mg 09/18/25 17:56 09/18/25 18:11 Tramadol Hcl 50 Mg Tablet PO 09/23/25 17:55 50 mg Q4HR PRN Administration Pain 4-10 Plan Patient is a 60-year-old female with past medical history of degenerative disc disease, GERD, depression, and recent cholecystectomy presenting to the ED on 09/17/2025 for recurrent pain/fever. She was admitted on 09/17/25 for management of recurrent abscess at cholecystectomy site. #Recurrent intra-abdominal abscess in setting of recent cholecystectomy Patient has had significant right sided abdominal pain for 2 to 3 days; CT scan shows 8.4 cm abscess at gallbladder fossa. WBC 14.0 on admission from 10.6 on 09/05/2025. Blood, wound and urine cultures obtained. 09-18-25- WBC 10.3 from 14 yesterday; wound culture shows 4+ WBCs and fungal elements. Drain output is 55ml; Blood cultures show no growth after 24 hours. 09-19-25- Urine culture shows enterobacter; wound culture shows E coli; blood culture shows no growth at 48 hours 09/20 drain output is 12cc. CTAP shows that the drainage catheter has been partially pulled out. GB fossa infection, abscess is depicted again. 09/[address]-guided IR drain placement at the GB fossa abscess. Plan: ? General Surgery consulted, drain placed, Dr. Redding said to keep patient until drain output goes down - tramadol 50mg Q4h PRN ? Follow-up blood, wound, and urine cultures ? Morphine 2 mg IV every 4 hours as needed - Infectious disease consulted, appreciate recs #GERD Patient has history of GERD. Plan: ? Protonix 40 IV daily #Depression Patient takes citalopram 40 mg daily Plan: ? Restarted Disposition: Med-Tele DVT prophylaxis: Heparin 5000 subq TID GI prophylaxis: Protonix 40 IV Diet: regular Lines: PIV CODE STATUS: Full This case was discussed with my attending physician, Dr. De La Cruz, and senior resident, Dr Albarado. Even though this this note was carefully revised there may still be minor errors in grain elevator worker due to voice recognition software. Janey Mobley DO PGY I Attending Provider Attestation/Addendum I have discussed and was present for the essential components of the history, physical examination, diagnosis, and treatment plan with the resident. I agree with the patient's care as documented by the resident and amended herein by me. Paco De La Cruz DO. Although this document has been carefully reviewed, there may still be some phonetic and other typographical errors. These errors are purely grammatical due to imperfections in the software program and should not be construed in any way to compromise the substance of the patient's medical care during this visit.
--- NOTE | 2025-09-21 23:15 | PC.NURSE ---
Assuming care of pt at this time. Pt alert and oriented x4, on room air, currently denies pain and nausea, IV R forearm present, drain to R abdomen patent c dressing clean/dry/intact; will continue to monitor.
[2025-09-22] VITALS: BP 118/59; PULSE 80; RESP 18; TEMP 37; O2SAT 96
[2025-09-22 04:00] VITALS: BP 145/69; PULSE 66; RESP 18; TEMP 36.6; O2SAT 97
[2025-09-22 05:37] LABS: Basophils # (Auto) 0.1 Thou/mm3 (0.0-0.2); Basophils % (Auto) 1 % (0-2.5); Eosinophils # (Auto) 0.8 Thou/mm3 (0.0-0.5); Eosinophils % (Auto) 8 % (0-10); Hematocrit 30.7 % (36.0-46.0); Hemoglobin 9.6 g/dL (12.0-16.0); Immature Granulocytes Auto 0.15 Thou/mm3 (0.00-0.00); Lymphocytes # (Auto) 1.9 Thou/mm3 (1.0-4.8); Lymphocytes % (Auto) 20 % (10-50); Mean Corpuscular HGB Conc 31.3 g/dl (31.0-37.0); Mean Corpuscular Hemoglobin 27.9 pg (25.0-35.0); Mean Corpuscular Volume 89 fL (80-100); Monocytes # (Auto) 0.8 Thou/mm3 (0.0-0.8); Monocytes % (Auto) 9 % (0-12); Neutrophils # (Auto) 5.7 Thou/mm3 (1.8-7.7); Neutrophils % (Auto) 61 % (37-80); Nucleated Red Blood Cell # 0.00 Thou/mm3 (0.00-0.00); Nucleated Red Blood Cell % 0 /100 WBC (0); Platelet Count 382 Thou/mm3 (140-440); RDW Standard Deviation 43.2 fL (36.4-46.3); Red Blood Count 3.44 Miln/mm3 (4.00-5.20); White Blood Count 9.3 Thou/mm3 (3.6-11.0)
[2025-09-22] MEDS: HEPARIN SOD INJ 5000 UNIT/ML VIAL SC ×3 (05:56→21:52)
[2025-09-22 06:13] LABS: Alanine Aminotransferase 10 U/L (10-49); Albumin, Serum 3.8 gm/dL (3.4-4.8); Albumin/Globulin Ratio 1.6 (1.2-2.2); Alkaline Phosphatase 96 U/L (46-116); Anion Gap 10 (7-16); Aspartate Amino Transferase 17 U/L (0-34); BUN/Creatinine Ratio 8 Ratio (12-20); Bilirubin,Total 0.2 mg/dL (0.3-1.2); Blood Urea Nitrogen 5 mg/dL (9-23); Calcium 8.9 mg/dL (8.3-10.6); Calcium (Corrected) 9.1 mg/dL (8.5-10.1); Carbon Dioxide 29.0 mMol/L (20.0-31.0); Chloride 104 mMol/L (98-107); Creatinine (Component) 0.6 mg/dL (0.6-1.3); Estimated Creatinine Clearance 89.9 mL/min (>60); Globulin 2.4 gm/dL (2.3-3.5); Glucose 98 mg/dL (74-106); Magnesium 1.8 mg/dL (1.6-2.6); Osmolality,Calculated 282 (275-295); Potassium 4.2 mMol/L (3.4-5.1); Sodium 143 mMol/L (136-145); Total Protein 6.2 gm/dL (5.7-8.2); eGFR > 60 See Note
[2025-09-22 08:00] VITALS: BP 130/68; PULSE 76; RESP 18; TEMP 36.1; O2SAT 94
[2025-09-22] MEDS: PANTOPRAZOLE 40 MG TABLET PO (09:19)
[2025-09-22] MEDS: CITALOPRAM 20 MG TABLET 40 MG PO (09:19)
[2025-09-22] MEDS: cefTRIAXone/D5w 1gm IV premix 1 GM/50 ML BAG IV (11:22)
[2025-09-22 12:00] VITALS: BP 115/67; PULSE 72; PULSE 82; RESP 16; TEMP 36.6; O2SAT 96
--- NOTE | 2025-09-22 14:27 | PD.RESPRO ---
Documentation for date of: 09/22/25 Subjective Subjective Interval history: Patient seen and examined at bedside; no acute events overnight. Patient reports pain with flushes of the drain. Reports that about 30 mL of purulent fluid was emptied from her drain right after its placement yesterday night. Although nursing assessment shows that patient was afebrile overnight, patient feeling hot and woke up in profuse sweating. Patient did not get 1 dose of antibiotic yesterday as she was taken down to IR. Diet resumed post-procedure, which the patient tolerates well. Exam Vital Signs Temp Pulse Resp BP Pulse Ox O2 Del Method O2 Flow Rate 97.9 F 72 16 115/67 96 Room Air 3 09/22/25 12:00 09/22/25 12:00 09/22/25 12:00 09/22/25 12:00 09/22/25 12:00 09/22/25 12:00 09/21/25 10:00 Narrative Exam General: A/O x3, no acute distress, well-nourished, well-developed Eyes: PERRL, EOMI. Anicteric, vision grossly intact. Ears: No ear pain, no ear discharge, Hearing grossly intact. Nose: No nasal discharge. Mouth/Throat: Moist mucous membranes, no redness, no lesions. Neck: Neck supple, non-tender, no cervical lymphadenopathy. Lungs: Clear DOMINGA to auscultation and percussion, No accessory muscle use. Cardio: Normal S1/S2, regular rhythm, no murmurs, no JVD or carotid bruits. Abdomen: No r side abdominal pain today; drain in place and somewhat tender at site Extremities: Symmetrical, no significant deformities, no peripheral edema , non-tender, peripheral pulses present. Skin: No rashes, no lesions, warm to touch. Neuro: No focal neurological deficits. Psych: Cooperative, appropriate mood and effect. Objective Labs 09/23/25 05:10 09/23/25 05:10 Labs: Laboratory Results - last 24 hr 09/22/25 05:11 WBC 9.3 RBC 3.44 L Hgb 9.6 L Hct 30.7 L MCV 89 MCH 27.9 MCHC 31.3 RDW Std Deviation 43.2 Plt Count 382 D Neut % (Auto) 61 Lymph % (Auto) 20 [place] % (Auto) 9 Eos % (Auto) 8 Baso % (Auto) 1 Neut # (Auto) 5.7 Lymph # (Auto) 1.9 [place] # (Auto) 0.8 Eos # (Auto) 0.8 H Baso # (Auto) 0.1 Immature Gran # (Auto) 0.15 H Absolute Nucleated RBC 0.00 Immature Gran % 2 H Nucleated RBC % 0 Sodium 143 Potassium 4.2 Chloride 104 Carbon Dioxide 29.0 Anion Gap 10 BUN 5 L Creatinine 0.6 Estim Creat Clear Calc 89.9 eGFR > 60 BUN/Creatinine Ratio 8 L Glucose 98 Calculated Osmolality 282 Calcium 8.9 Corrected Calcium 9.1 Magnesium 1.8 Total Bilirubin 0.2 L AST 17 ALT 10 Alkaline Phosphatase 96 Total Protein 6.2 Albumin 3.8 Globulin 2.4 Albumin/Globulin Ratio 1.6 Quality Measures Quality Measures none Assessment & Plan Assessment Current Active Medications: Generic Name Dose Route Start Last Admin Trade Name Freq PRN Reason Stop Dose Admin Acetaminophen 650 mg 09/17/25 14:15 Acetaminophen 325 Mg Tablet PO 10/17/25 14:14 Q6H PRN Fever >100.4 Acetaminophen 650 mg 09/17/25 14:15 Acetaminophen 325 Mg Tablet PO 10/17/25 14:14 Q6H PRN PAIN SCALE 1-3 (mild Hydrocodone Bitart/Acetaminophen 1 tab 09/18/25 11:00 09/21/25 20:10 Hydrocodone/Apap 5/325 Tablet PO 09/23/25 10:59 1 tab Q4HR PRN Administration PAIN SCALE 4-10(Mod-Sev Protocol Citalopram Hydrobromide 40 mg 09/17/25 14:45 09/22/25 09:19 Citalopram 20 Mg Tablet PO 10/17/25 14:44 40 mg QDAY JOYCELYN Administration Heparin Sodium (Porcine) 5,000 unit 09/17/25 14:30 09/22/25 05:56 Heparin Sod Inj 5000 Unit/Ml Vial SC 10/01/25 14:29 5,000 unit Q8HR JOYCELYN Administration Ceftriaxone Sodium/Dextrose 1 gm in 50 mls @ 100 mls/hr 09/22/25 09:55 09/22/25 11:22 Rocephin/D5w 1gm Iv Premix IV 09/29/25 09:54 100 mls/hr QDAY JOYCELYN Administration Morphine Sulfate 2 mg 09/18/25 04:53 09/21/25 11:41 Morphine Sulf Inj 4 Mg/Ml Vial IVP 09/23/25 04:52 2 mg Q4HR PRN Administration BREAKTHROUGH PAIN Protocol Ondansetron HCl 4 mg 09/17/25 14:15 09/17/25 18:00 Ondansetron Inj 2 Mg/Ml Inj 2 Ml IVP 10/17/25 14:14 4 mg Q6H PRN Administration NAUSEA OR VOMITING Protocol Pantoprazole Sodium 40 mg 09/22/25 09:00 09/22/25 09:19 Pantoprazole 40 Mg Tablet PO 10/22/25 08:59 40 mg QDAY JOYCELYN Administration Tramadol HCl 50 mg 09/18/25 17:56 09/18/25 18:11 Tramadol Hcl 50 Mg Tablet PO 09/26/25 20:26 50 mg Q4HR PRN Administration Pain 4-10 Plan Patient is a 60-year-old female with past medical history of degenerative disc disease, GERD, depression, and recent cholecystectomy presenting to the ED on 09/17/2025 for recurrent pain/fever. She was admitted on 09/17/25 for management of recurrent abscess at cholecystectomy site. #Recurrent intra-abdominal abscess in setting of recent cholecystectomy Patient has had significant right sided abdominal pain for 2 to 3 days; CT scan shows 8.4 cm abscess at gallbladder fossa. WBC 14.0 on admission from 10.6 on 09/05/2025. Blood, wound and urine cultures obtained. 09-18-25- WBC 10.3 from 14 yesterday; wound culture shows 4+ WBCs and fungal elements. Drain output is 55ml; Blood cultures show no growth after 24 hours. 09-19-25- Urine culture shows enterobacter; wound culture shows E coli; blood culture shows no growth at 48 hours 09/20 drain output is 12cc. CTAP shows that the drainage catheter has been partially pulled out. GB fossa infection, abscess is depicted again. 09/[address]-guided IR drain placement at the GB fossa abscess. 09/22 about 30ml of purulent fluid emptied from the drain after its placement. Plan: ? General Surgery consulted, drain placed, Dr. Redding said to keep patient until drain output goes down - Ceftriaxone IV 1gm Qday (09/17 - ) - will complete CTAP once drainage <10ml to confirm resolution of the abscess. - tramadol 50mg Q4h PRN ? Follow-up blood, wound, and urine cultures ? Morphine 2 mg IV every 4 hours as needed - Infectious disease consulted, appreciate recs #GERD Patient has history of GERD. Plan: ? Protonix 40 IV daily #Depression Patient takes citalopram 40 mg daily Plan: ? Restarted Disposition: Med-Tele DVT prophylaxis: Heparin 5000 subq TID GI prophylaxis: Protonix 40 IV Diet: regular Lines: PIV CODE STATUS: Full This case was discussed with my attending physician, Dr. De La Cruz, and senior resident, Dr Schafer. Even though this this note was carefully revised there may still be minor errors in adjunct instructor of women's studies due to voice recognition software. Janey Mobley DO PGY I Senior Resident Attestation: The patient reported that until this morning the patient had about 35 to 40 cc of drain through gallbladder drainage tube, and we will continue to drain, and if by tomorrow the drainage is less than 15 cc, we will let the surgeon know about that, and get the CT abdomen. She is tolerating p.o. diet. I discussed with and supervised the international relations teacher physician involved in the care of this patient. I personally saw and examined the patient and discussed the assessment and plan with the entire medicine team, including my attending. I agree with the assessment and plan as documented above. Bert Schafer MD PGY3 Internal Medicine Attending Provider Attestation/Addendum I have discussed and was present for the essential components of the history, physical examination, diagnosis, and treatment plan with the resident. I agree with the patient's care as documented by the resident and amended herein by me. Paco De La Cruz DO. Although this document has been carefully reviewed, there may still be some phonetic and other typographical errors. These errors are purely grammatical due to imperfections in the software program and should not be construed in any way to compromise the substance of the patient's medical care during this visit.
[2025-09-22 16:00] VITALS: BP 105/63; PULSE 72; PULSE 98; RESP 18; TEMP 36.4; O2SAT 99
[2025-09-22 20:00] VITALS: BP 108/60; PULSE 95; RESP 19; TEMP 36.9; O2SAT 91
[2025-09-23] VITALS (8 sets, daily range): BP systolic 99–128; BP diastolic 50–65; PULSE 61–95; RESP 16–19; TEMP 36.3–37.1; O2SAT 94–96
[2025-09-23] MEDS: HEPARIN SOD INJ 5000 UNIT/ML VIAL SC ×3 (05:48→21:54)
[2025-09-23 06:07] LABS: Basophils # (Auto) 0.1 Thou/mm3 (0.0-0.2); Basophils % (Auto) 1 % (0-2.5); Eosinophils # (Auto) 0.8 Thou/mm3 (0.0-0.5); Eosinophils % (Auto) 7 % (0-10); Hematocrit 31.8 % (36.0-46.0); Hemoglobin 10.2 g/dL (12.0-16.0); Immature Granulocytes Auto 0.30 Thou/mm3 (0.00-0.00); Lymphocytes # (Auto) 3.1 Thou/mm3 (1.0-4.8); Lymphocytes % (Auto) 26 % (10-50); Mean Corpuscular HGB Conc 32.1 g/dl (31.0-37.0); Mean Corpuscular Hemoglobin 28.7 pg (25.0-35.0); Mean Corpuscular Volume 89 fL (80-100); Monocytes # (Auto) 0.9 Thou/mm3 (0.0-0.8); Monocytes % (Auto) 7 % (0-12); Neutrophils # (Auto) 6.9 Thou/mm3 (1.8-7.7); Neutrophils % (Auto) 57 % (37-80); Nucleated Red Blood Cell # 0.00 Thou/mm3 (0.00-0.00); Nucleated Red Blood Cell % 0 /100 WBC (0); Platelet Count 335 Thou/mm3 (140-440); RDW Standard Deviation 44.8 fL (36.4-46.3); Red Blood Count 3.56 Miln/mm3 (4.00-5.20); White Blood Count 12.1 Thou/mm3 (3.6-11.0)
[2025-09-23 06:35] LABS: Alanine Aminotransferase < 7 U/L (10-49); Albumin, Serum 3.6 gm/dL (3.4-4.8); Albumin/Globulin Ratio 1.3 (1.2-2.2); Alkaline Phosphatase 89 U/L (46-116); Anion Gap 11 (7-16); Aspartate Amino Transferase 15 U/L (0-34); BUN/Creatinine Ratio 8 Ratio (12-20); Bilirubin,Total 0.2 mg/dL (0.3-1.2); Blood Urea Nitrogen 5 mg/dL (9-23); Calcium 9.0 mg/dL (8.3-10.6); Calcium (Corrected) 9.3 mg/dL (8.5-10.1); Carbon Dioxide 26.5 mMol/L (20.0-31.0); Chloride 107 mMol/L (98-107); Creatinine (Component) 0.6 mg/dL (0.6-1.3); Estimated Creatinine Clearance 89.9 mL/min (>60); Globulin 2.7 gm/dL (2.3-3.5); Glucose 88 mg/dL (74-106); Magnesium 1.8 mg/dL (1.6-2.6); Osmolality,Calculated 283 (275-295); Potassium 4.1 mMol/L (3.4-5.1); Sodium 144 mMol/L (136-145); Total Protein 6.3 gm/dL (5.7-8.2); eGFR > 60 See Note
[2025-09-23] MEDS: CITALOPRAM 20 MG TABLET 40 MG PO (09:14)
[2025-09-23] MEDS: PANTOPRAZOLE 40 MG TABLET PO (09:14)
[2025-09-23] MEDS: cefTRIAXone/D5w 1gm IV premix 1 GM/50 ML BAG IV (09:14)
--- NOTE | 2025-09-23 12:29 | ESPR_ITS ---
<Statement entered by Rocky Albarado MD - 09/23/25 13:43> I saw and examined patient personally and supervised PGY 1 resident, Dr. Mobley with formulating a management plan. I agree with the documentation with the exceptions as listed below. Patient only had 10 cc of output from drain in past 24 hours. Ensured that drain was properly placed on vacuum and suction. General surgeon, Dr. Redding recommended to keep patient overnight and repeat CT abdomen pelvis tomorrow. Will place patient on 1 L lactated Ringer's at 100 cc/h from midnight to prevent contrast-induced nephropathy. Plan of care discussed with Attending Dr. Jono Albarado MD PGY 2 Disclaimer: This note was dictated by speech recognition. Minor errors in interior wall assembler may be present due to voice recognition software. Documentation for date of: 09/23/25 Subjective Subjective Interval history: Patient seen and examined at bedside; no acute events overnight. Patient denies fevers, though she states that episodically she breaks into whole body sweat. She is ambulatory and denies urinary or GI sxs while using the bathroom. According to nurse, patient had 10mL emptied by 2AM, and minimal output in the bag since. Patient reports pain with flushes of the drain. Diet resumed post- procedure, which the patient tolerates well. Exam Vital Signs Temp Pulse Resp BP Pulse Ox O2 Del Method O2 Flow Rate 97.8 F 72 18 116/50 L 95 Room Air 3 09/23/25 12:00 09/23/25 12:00 09/23/25 12:09/23/25 12:00 09/23/25 12:00 09/23/25 12:09/22/25 20:00 Narrative Exam General: A/O x3, no acute distress, well-nourished, well-developed Eyes: PERRL, EOMI. Anicteric, vision grossly intact. Ears: No ear pain, no ear discharge, Hearing grossly intact. Nose: No nasal discharge. Mouth/Throat: Moist mucous membranes, no redness, no lesions. Neck: Neck supple, non-tender, no cervical lymphadenopathy. Lungs: Clear DOMINGA to auscultation and percussion, No accessory muscle use. Cardio: Normal S1/S2, regular rhythm, no murmurs, no JVD or carotid bruits. Abdomen: No r side abdominal pain today; drain in place and somewhat tender at site Extremities: Symmetrical, no significant deformities, no peripheral edema , non-tender, peripheral pulses present. Skin: No rashes, no lesions, warm to touch. Neuro: No focal neurological deficits. Psych: Cooperative, appropriate mood and effect. Objective Labs 09/23/25 05:10 09/23/25 05:10 Labs: Laboratory Results - last 24 hr 09/23/25 05:10 WBC 12.1 H RBC 3.56 L Hgb 10.2 L Hct 31.8 L MCV 89 MCH 28.7 MCHC 32.1 RDW Std Deviation 44.8 Plt Count 335 D Neut % (Auto) 57 Lymph % (Auto) 26 [place] % (Auto) 7 Eos % (Auto) 7 Baso % (Auto) 1 Neut # (Auto) 6.9 Lymph # (Auto) 3.1 [place] # (Auto) 0.9 H Eos # (Auto) 0.8 H Baso # (Auto) 0.1 Immature Gran # (Auto) 0.30 H Absolute Nucleated RBC 0.00 Immature Gran % 3 H Nucleated RBC % 0 Sodium 144 Potassium 4.1 Chloride 107 Carbon Dioxide 26.5 Anion Gap 11 BUN 5 L Creatinine 0.6 Estim Creat Clear Calc 89.9 eGFR > 60 BUN/Creatinine Ratio 8 L Glucose 88 Calculated Osmolality 283 Calcium 9.0 Corrected Calcium 9.3 Magnesium 1.8 Total Bilirubin 0.2 L AST 15 ALT < 7 L Alkaline Phosphatase 89 Total Protein 6.3 Albumin 3.6 Globulin 2.7 Albumin/Globulin Ratio 1.3 Quality Measures Quality Measures none Assessment & Plan Assessment Current Active Medications: Generic Name Dose Route Start Last Admin Trade Name Nikoq PRN Reason Stop Dose Admin Acetaminophen 650 mg 09/17/25 14:15 Acetaminophen 325 Mg Tablet PO 10/17/25 14:14 Q6H PRN Fever >100.4 Acetaminophen 650 mg 09/17/25 14:15 Acetaminophen 325 Mg Tablet PO 10/17/25 14:14 Q6H PRN PAIN SCALE 1-3 (mild Citalopram Hydrobromide 40 mg 09/17/25 14:45 09/23/25 09:14 Citalopram 20 Mg Tablet PO 10/17/25 14:44 40 mg QDAY JOYCELYN Administration Heparin Sodium (Porcine) 5,000 unit 09/17/25 14:30 09/23/25 05:48 Heparin Sod Inj 5000 Unit/Ml Vial SC 10/01/25 14:29 5,000 unit Q8HR JOYCELYN Administration Ceftriaxone Sodium/Dextrose 1 gm in 50 mls @ 100 mls/hr 09/22/25 09:55 09/23/25 09:14 Rocephin/D5w 1gm Iv Premix IV 09/29/25 09:54 100 mls/hr QDAY JOYCELYN Administration Ondansetron HCl 4 mg 09/17/25 14:15 09/17/25 18:00 Ondansetron Inj 2 Mg/Ml Inj 2 Ml IVP 10/17/25 14:14 4 mg Q6H PRN Administration NAUSEA OR VOMITING Protocol Pantoprazole Sodium 40 mg 09/22/25 09:00 09/23/25 09:14 Pantoprazole 40 Mg Tablet PO 10/22/25 08:59 40 mg QDAY JOYCELYN Administration Tramadol HCl 50 mg 09/18/25 17:56 09/18/25 18:11 Tramadol Hcl 50 Mg Tablet PO 09/26/25 20:26 50 mg Q4HR PRN Administration Pain 4-10 Plan Patient is a 60-year-old female with past medical history of degenerative disc disease, GERD, depression, and recent cholecystectomy presenting to the ED on 09/17/2025 for recurrent pain/fever. She was admitted on 09/17/25 for management of recurrent abscess at cholecystectomy site. #Recurrent intra-abdominal abscess in setting of recent cholecystectomy Patient has had significant right sided abdominal pain for 2 to 3 days; CT scan shows 8.4 cm abscess at gallbladder fossa. WBC 14.0 on admission from 10.6 on 09/05/2025. Blood, wound and urine cultures obtained. 09-18-25- WBC 10.3 from 14 yesterday; wound culture shows 4+ WBCs and fungal elements. Drain output is 55ml; Blood cultures show no growth after 24 hours. 09-19-25- Urine culture shows enterobacter; wound culture shows E coli; blood culture shows no growth at 48 hours 09/20 drain output is 12cc. CTAP shows that the drainage catheter has been partially pulled out. GB fossa infection, abscess is depicted again. 09/[address]-guided IR drain placement at the GB fossa abscess. 09/22 about 30ml of purulent fluid emptied from the drain after its placement. 09/23 about 10mL of hemopurulent fluid collected in drain bag, Dr Redding was notified, who recommended keeping the patient in for another day as the drain had just been placed. Plan: - ordered CTAP w con to confirm correct placement of the drain and resolution of the abscess. - will start NS 1L at 100mL/h from midnight to minimize contrast-induced nephropathy, and will order bolus fluid afterwards to flush contrast through kidneys. - Nursing order to keep ppatient NPO for 2h before the procedure. ? General Surgery consulted, drain placed, Dr. Redding said to keep patient until drain output goes down - Ceftriaxone IV 1gm Qday (09/17 - ) - will complete CTAP once drainage <10ml to confirm resolution of the abscess. - tramadol 50mg Q4h PRN ? Follow-up blood, wound, and urine cultures ? Morphine 2 mg IV every 4 hours as needed - Infectious disease consulted, appreciate recs #GERD Patient has history of GERD. Plan: ? Protonix 40 IV daily #Depression Patient takes citalopram 40 mg daily Plan: ? Restarted Disposition: Med-Tele DVT prophylaxis: Heparin 5000 subq TID GI prophylaxis: Protonix 40 IV Diet: regular Lines: PIV CODE STATUS: Full This case was discussed with my attending physician, Dr. De La Cruz, and senior resident, Dr Albarado. Even though this this note was carefully revised there may still be minor errors in interior wall assembler due to voice recognition software. Janey oMbley DO PGY I Senior Resident Attestation: I discussed with and supervised the sales management intern physician involved in the care of this patient. I personally saw and examined the patient and discussed the assessment and plan with the entire medicine team, including my attending. I agree with the assessment and plan as documented above. Bert Schafer MD PGY3 Internal Medicine Attending Provider Attestation/Addendum I have discussed and was present for the essential components of the history, physical examination, diagnosis, and treatment plan with the resident. I agree with the patient's care as documented by the resident and amended herein by me. Paco De La Cruz DO. Although this document has been carefully reviewed, there may still be some phonetic and other typographical errors. These errors are purely grammatical due to imperfections in the software program and should not be construed in any way to compromise the substance of the patient's medical care during this visit.
[2025-09-24] VITALS (7 sets, daily range): BP systolic 98–130; BP diastolic 42–71; PULSE 62–90; RESP 16–20; TEMP 36.1–37; O2SAT 93–97
[2025-09-24] MEDS: SODIUM CHLORIDE 0.9% 1000 ML 1,000 ML 100 ML IV (00:03)
[2025-09-24] MEDS: HEPARIN SOD INJ 5000 UNIT/ML VIAL SC ×3 (05:04→21:11)
--- NOTE | 2025-09-24 06:00 | XR_ITS ---
Examination: CT abdomen with intravenous contrast CT pelvis with intravenous contrast 2-D coronal reconstructions 2-D sagittal reconstructions Date and time of exam: September 24, 2025, 1020 hours INDICATIONS: Reposition abscess drainage catheter at September 21, 2025. CTDI: vol (mGy) 8.74 DLP: (mGycm) 508 Technique: Multiple axial sections of the abdomen and pelvis have been obtained. 64 slice high-resolution scanner used. 3 mm axial sections have been obtained, post intravenous injection 60 cc Isovue 370 2-D sagittal, coronal reconstructions obtained. Low dose protocols were performed. One or more of the following dose reduction techniques were used; automated exposure control, adjustment of the mA and/or KV according to patient size, use of iterative reconstruction technique. Findings: Pneumonia right base with right pleural fluid No visualized liver lesion The patient's abscess drainage catheter has been pulled out The gallbladder fossa abscess measures 5.8 x 3.0 cm No pancreatic mass, no common bile duct stones Perinephric stranding Small bowel ileus Aorta normal size No pelvic mass Bladder intact IMPRESSION: Pneumonia right base with right pleural fluid The patient's abscess drainage catheter has been pulled out
[2025-09-24 06:41] LABS: Basophils # (Auto) 0.1 Thou/mm3 (0.0-0.2); Basophils % (Auto) 1 % (0-2.5); Eosinophils # (Auto) 1.0 Thou/mm3 (0.0-0.5); Eosinophils % (Auto) 8 % (0-10); Hematocrit 32.3 % (36.0-46.0); Hemoglobin 10.2 g/dL (12.0-16.0); Immature Granulocytes Auto 0.32 Thou/mm3 (0.00-0.00); Lymphocytes # (Auto) 3.0 Thou/mm3 (1.0-4.8); Lymphocytes % (Auto) 25 % (10-50); Mean Corpuscular HGB Conc 31.6 g/dl (31.0-37.0); Mean Corpuscular Hemoglobin 27.9 pg (25.0-35.0); Mean Corpuscular Volume 89 fL (80-100); Monocytes # (Auto) 0.8 Thou/mm3 (0.0-0.8); Monocytes % (Auto) 7 % (0-12); Neutrophils # (Auto) 6.8 Thou/mm3 (1.8-7.7); Neutrophils % (Auto) 57 % (37-80); Nucleated Red Blood Cell # 0.00 Thou/mm3 (0.00-0.00); Nucleated Red Blood Cell % 0 /100 WBC (0); Platelet Count 413 Thou/mm3 (140-440); RDW Standard Deviation 43.8 fL (36.4-46.3); Red Blood Count 3.65 Miln/mm3 (4.00-5.20); White Blood Count 12.0 Thou/mm3 (3.6-11.0)
[2025-09-24 07:33] LABS: Alanine Aminotransferase 8 U/L (10-49); Albumin, Serum 3.6 gm/dL (3.4-4.8); Albumin/Globulin Ratio 1.4 (1.2-2.2); Alkaline Phosphatase 85 U/L (46-116); Anion Gap 11 (7-16); Aspartate Amino Transferase 15 U/L (0-34); BUN/Creatinine Ratio 12 Ratio (12-20); Bilirubin,Total 0.3 mg/dL (0.3-1.2); Blood Urea Nitrogen 7 mg/dL (9-23); Calcium 9.1 mg/dL (8.3-10.6); Calcium (Corrected) 9.4 mg/dL (8.5-10.1); Carbon Dioxide 27.9 mMol/L (20.0-31.0); Chloride 106 mMol/L (98-107); Creatinine (Component) 0.6 mg/dL (0.6-1.3); Estimated Creatinine Clearance 89.9 mL/min (>60); Globulin 2.6 gm/dL (2.3-3.5); Glucose 90 mg/dL (74-106); Magnesium 1.7 mg/dL (1.6-2.6); Osmolality,Calculated 286 (275-295); Potassium 4.3 mMol/L (3.4-5.1); Sodium 145 mMol/L (136-145); Total Protein 6.2 gm/dL (5.7-8.2); eGFR > 60 See Note
[2025-09-24 08:30] LABS: Phosphorous 4.9 mg/dL (2.4-5.1)
[2025-09-24] MEDS: CITALOPRAM 20 MG TABLET 40 MG PO (08:39)
[2025-09-24] MEDS: cefTRIAXone/D5w 1gm IV premix 1 GM/50 ML BAG IV (08:39)
[2025-09-24] MEDS: PANTOPRAZOLE 40 MG TABLET PO (08:40)
--- NOTE | 2025-09-24 09:13 | PD.IDPROG ---
Subjective Subjective Interval history: can use keflex but most conservative approach would be to finish 5d of post op rocephin (stop it trial) but po keflex ok Exam Vital Signs Temp Pulse Resp BP Pulse Ox O2 Del Method O2 Flow Rate 96.9 F 72 18 100/68 96 Room Air 3 09/24/25 08:00 09/24/25 08:00 09/24/25 08:00 09/24/25 08:00 09/24/25 08:00 09/24/25 08:00 09/22/25 20:00 Narrative Exam limited visit Objective - Internal Medicine Labs 09/24/25 06:07 09/24/25 06:07 Labs: Laboratory Results - last 24 hr 09/24/25 06:07 WBC 12.0 H RBC 3.65 L Hgb 10.2 L Hct 32.3 L MCV 89 MCH 27.9 MCHC 31.6 RDW Std Deviation 43.8 Plt Count 413 D Neut % (Auto) 57 Lymph % (Auto) 25 [place] % (Auto) 7 Eos % (Auto) 8 Baso % (Auto) 1 Neut # (Auto) 6.8 Lymph # (Auto) 3.0 [place] # (Auto) 0.8 Eos # (Auto) 1.0 H Baso # (Auto) 0.1 Immature Gran # (Auto) 0.32 H Absolute Nucleated RBC 0.00 Immature Gran % 3 H Nucleated RBC % 0 Sodium 145 Potassium 4.3 Chloride 106 Carbon Dioxide 27.9 Anion Gap 11 BUN 7 L Creatinine 0.6 Estim Creat Clear Calc 89.9 eGFR > 60 BUN/Creatinine Ratio 12 Glucose 90 Calculated Osmolality 286 Calcium 9.1 Corrected Calcium 9.4 Phosphorus 4.9 Magnesium 1.7 Total Bilirubin 0.3 AST 15 ALT 8 L Alkaline Phosphatase 85 Total Protein 6.2 Albumin 3.6 Globulin 2.6 Albumin/Globulin Ratio 1.4 Assessment & Plan A&P Narrative recurrent abd abscess rebecca fossa drained 09/21 recent erbecca there was a study (the stop-it study) that favored 5d of rx today is day 3, started 09/17 with rocephin to which the germ was S if desired you can send her home on keflex 1000 tid for a few more days after jarrod iv finished. f/u will have to be with the primary team. I can not see her in clinic. the oral rx may not do much but is popular. will see again prn Time Spent With Patient Time: Total time spent is greater than 50% in coordination of care (as documented) at patient's floor/unit and/or counseling patient:
--- NOTE | 2025-09-24 09:54 | PD.RESPRO ---
Documentation for date of: 09/24/25 Subjective Subjective Interval history: Patient seen and examined at bedside; no acute events overnight. Minimal pain and no output in drain; imaging showed that drain had fallen out. Dr. Redding consulted, and abscess contents will be aspirated tomorrow. Abscess culture showed E. coli. Exam Vital Signs Temp Pulse Resp BP Pulse Ox O2 Del Method O2 Flow Rate 96.9 F 72 18 100/68 96 Room Air 3 09/24/25 08:00 09/24/25 08:00 09/24/25 08:00 09/24/25 08:00 09/24/25 08:00 09/24/25 08:00 09/22/25 20:00 Narrative Exam General: A/O x3, no acute distress, well-nourished, well-developed Eyes: PERRL, EOMI. Anicteric, vision grossly intact. Ears: No ear pain, no ear discharge, Hearing grossly intact. Nose: No nasal discharge. Mouth/Throat: Moist mucous membranes, no redness, no lesions. Neck: Neck supple, non-tender, no cervical lymphadenopathy. Lungs: Clear DOMINGA to auscultation and percussion, No accessory muscle use. Cardio: Normal S1/S2, regular rhythm, no murmurs, no JVD or carotid bruits. Abdomen: No r side abdominal pain today; drain in place Extremities: Symmetrical, no significant deformities, no peripheral edema , non-tender, peripheral pulses present. Skin: No rashes, no lesions, warm to touch. Neuro: No focal neurological deficits. Psych: Cooperative, appropriate mood and effect. Objective Labs 09/24/25 06:07 09/24/25 06:07 Labs: Laboratory Results - last 24 hr 09/24/25 06:07 WBC 12.0 H RBC 3.65 L Hgb 10.2 L Hct 32.3 L MCV 89 MCH 27.9 MCHC 31.6 RDW Std Deviation 43.8 Plt Count 413 D Neut % (Auto) 57 Lymph % (Auto) 25 [place] % (Auto) 7 Eos % (Auto) 8 Baso % (Auto) 1 Neut # (Auto) 6.8 Lymph # (Auto) 3.0 [place] # (Auto) 0.8 Eos # (Auto) 1.0 H Baso # (Auto) 0.1 Immature Gran # (Auto) 0.32 H Absolute Nucleated RBC 0.00 Immature Gran % 3 H Nucleated RBC % 0 Sodium 145 Potassium 4.3 Chloride 106 Carbon Dioxide 27.9 Anion Gap 11 BUN 7 L Creatinine 0.6 Estim Creat Clear Calc 89.9 eGFR > 60 BUN/Creatinine Ratio 12 Glucose 90 Calculated Osmolality 286 Calcium 9.1 Corrected Calcium 9.4 Phosphorus 4.9 Magnesium 1.7 Total Bilirubin 0.3 AST 15 ALT 8 L Alkaline Phosphatase 85 Total Protein 6.2 Albumin 3.6 Globulin 2.6 Albumin/Globulin Ratio 1.4 Quality Measures Quality Measures none Assessment & Plan Assessment Current Active Medications: Generic Name Dose Route Start Last Admin Trade Name Freq PRN Reason Stop Dose Admin Acetaminophen 650 mg 09/17/25 14:15 Acetaminophen 325 Mg Tablet PO 10/17/25 14:14 Q6H PRN Fever >100.4 Acetaminophen 650 mg 09/17/25 14:15 Acetaminophen 325 Mg Tablet PO 10/17/25 14:14 Q6H PRN PAIN SCALE 1-3 (mild Citalopram Hydrobromide 40 mg 09/17/25 14:45 09/24/25 08:39 Citalopram 20 Mg Tablet PO 10/17/25 14:44 40 mg QDAY JOYCELYN Administration Heparin Sodium (Porcine) 5,000 unit 09/17/25 14:30 09/24/25 05:04 Heparin Sod Inj 5000 Unit/Ml Vial SC 10/01/25 14:29 5,000 unit Q8HR JOYCELYN Administration Ceftriaxone Sodium/Dextrose 1 gm in 50 mls @ 100 mls/hr 09/22/25 09:55 09/24/25 08:39 Rocephin/D5w 1gm Iv Premix IV 09/29/25 09:54 100 mls/hr QDAY JOYCELYN Administration Sodium Chloride 1,000 mls @ 100 mls/hr 09/24/25 00:05 09/24/25 00:03 Ns IV 09/24/25 10:04 100 mls/hr .Q10H JOYCELYN Administration Ondansetron HCl 4 mg 09/17/25 14:15 09/17/25 18:00 Ondansetron Inj 2 Mg/Ml Inj 2 Ml IVP 10/17/25 14:14 4 mg Q6H PRN Administration NAUSEA OR VOMITING Protocol Pantoprazole Sodium 40 mg 09/22/25 09:00 09/24/25 08:40 Pantoprazole 40 Mg Tablet PO 10/22/25 08:59 40 mg QDAY JOYCELYN Administration Tramadol HCl 50 mg 09/18/25 17:56 09/18/25 18:11 Tramadol Hcl 50 Mg Tablet PO 09/26/25 20:26 50 mg Q4HR PRN Administration Pain 4-10 Plan Patient is a 60-year-old female with past medical history of degenerative disc disease, GERD, depression, and recent cholecystectomy presenting to the ED on 09/17/2025 for recurrent pain/fever. She was admitted on 09/17/25 for management of recurrent abscess at cholecystectomy site. #Recurrent intra-abdominal abscess in setting of recent cholecystectomy Patient has had significant right sided abdominal pain for 2 to 3 days; CT scan shows 8.4 cm abscess at gallbladder fossa. WBC 14.0 on admission from 10.6 on 09/05/2025. Blood, wound and urine cultures obtained. 09-18-25- WBC 10.3 from 14 yesterday; wound culture shows 4+ WBCs and fungal elements. Drain output is 55ml; Blood cultures show no growth after 24 hours. 09-19-25- Urine culture shows enterobacter; wound culture shows E coli; blood culture shows no growth at 48 hours 09/20 drain output is 12cc. CTAP shows that the drainage catheter has been partially pulled out. GB fossa infection, abscess is depicted again. 09/[address]-guided IR drain placement at the GB fossa abscess. 09/22 about 30ml of purulent fluid emptied from the drain after its placement. 09/23 about 10mL of hemopurulent fluid collected in drain bag, Dr Redding was notified, who recommended keeping the patient in for another day as the drain had just been placed. 09/24 minimal output in drain bag; CT showed drain having fallen out. Dr. Redding consulted, and abscess contents will be aspirated tomorrow. Abscess culture showed E. coli. Blood culture negative. Plan: ? Abscess contents will be aspirated tomorrow. - Ceftriaxone IV 1gm Qday (09/17 - ) - tramadol 50mg Q4h PRN ? Follow-up blood, wound, and urine cultures ? Morphine 2 mg IV every 4 hours as needed - Infectious disease consulted, appreciate recs #GERD Patient has history of GERD. Plan: ? Protonix 40 IV daily #Depression Patient takes citalopram 40 mg daily Plan: ? Restarted Disposition: Med-Tele DVT prophylaxis: Heparin 5000 subq TID GI prophylaxis: Protonix 40 IV Diet: regular Lines: PIV CODE STATUS: Full This case was discussed with my attending physician, Dr. De La Cruz, and senior resident, Dr Schafer. Villa Coats, PGY1 Senior Resident Attestation: The patient did not had significant overnight output from gallbladder tube drain, and CT abdomen revealed abscess with drain not in position. Interventional radiology reported they would be draining it tomorrow morning again. We will continue with ceftriaxone 1 g daily. I discussed with and supervised the product marketing intern physician involved in the care of this patient. I personally saw and examined the patient and discussed the assessment and plan with the entire medicine team, including my attending. I agree with the assessment and plan as documented above. Bert Schafer MD PGY3 Internal Medicine Attending Provider Attestation/Addendum I have discussed and was present for the essential components of the history, physical examination, diagnosis, and treatment plan with the resident. I agree with the patient's care as documented by the resident and amended herein by me. Paco De La Cruz DO. Although this document has been carefully reviewed, there may still be some phonetic and other typographical errors. These errors are purely grammatical due to imperfections in the software program and should not be construed in any way to compromise the substance of the patient's medical care during this visit.
--- NOTE | 2025-09-24 10:53 | PC.SS ---
Follow up note: CT scan today. Pt will return home upon dc.
--- NOTE | 2025-09-24 12:57 | PD.SURPROG ---
Documentation for date of: 09/24/25 Subjective Subjective Brief History: 60F with history of gastric bypass, GERD who was hospitalized with gallstone pancreatitis s/p lap rebecca 08/30/25, course complicated by gallbladder fossa abscess drained 09/03 which I removed 09/06 after symptoms resolved and abscess significantly decreased, unfortunately having the same symptoms again presenting to ER 09/17 with findings of another gallbladder fossa abscess drained on the same day. Today pt reports feeling better, however she still has episodes of pain which are only temporarily relieved by morphine. She denies nausea, is eating well and remaining afebrile with WBC 10 from 14. Drain had 55cc output so far Narrative: RUQ drain was replaced on 09/21 and at first had 30cc output which has since decreased, CT today showed drain has again been pulled out. Pt is understandably frustrated but otherwise feels ok with no pain, no nausea, tolerating diet and remaining afebrile, WBC 12 last two days Exam Vital Signs Temp Pulse Resp BP Pulse Ox O2 Del Method O2 Flow Rate 96.9 F 67 18 100/68 96 Room Air 3 09/24/25 08:00 09/24/25 12:36 09/24/25 08:00 09/24/25 08:00 09/24/25 08:00 09/24/25 08:00 09/22/25 20:00 Constitutional Constitutional: no acute distress Routine Respiratory Exam Respiratory: Present no resp distress Routine Abdominal Exam Abdominal: Present soft and drain (RUQ drain with scant purulent output); Absent tenderness or distended Results Results: Laboratory Laboratory results: results reviewed Results: Imaging CT scan - abdomen: report reviewed and image reviewed Assessment & Plan Plan 60F with history of gastric bypass, GERD who was hospitalized with gallstone pancreatitis s/p lap rebecca 08/30/25, course complicated by gallbladder fossa abscess drained 09/03-09/06, readmitted 09/17 with a second gallbladder fossa abscess, first drained 09/17 and then drain replaced 09/21 after it dislodged, unfortunately it is dislodged again. Clinically pt is doing well with no pain however given the size of the persistent collection I spoke to radiology to request aspiration (as opposed to replacing the drain) which was agreed to NPO after MN for aspiration of RUQ abscess tomorrow by IR Continue abx for now
[2025-09-25] VITALS (14 sets, daily range): BP systolic 93–122; BP diastolic 52–76; PULSE 63–98; RESP 12–21; TEMP 36.9–37.4; O2SAT 95–98
--- NOTE | 2025-09-25 07:00 | XR_ITS ---
EXAM: CT-guided gallbladder fossa fluid collection aspiration. INDICATION: Status post cholecystectomy with recurrent fluid at operative site. DATE: 09/25/2025, 9:44 a.m. CTDI: 78.8 DLP: 922 PROCEDURE: After discussion of risks and benefits informed consent was obtained. The patient was brought to the CT scanner and placed supine on the exam table. Preliminary noncontrast enhanced CT again demonstrated approximately 6 x 3 cm heterogeneous low density fluid collection in the gallbladder fossa. This was targeted for aspiration. The overlying skin was cleaned and draped in normal sterile surgical fashion. 20 cc of 1% lidocaine was used for local anesthesia. Conscious sedation was begun with direct continuous nursing supervision. Using CT guidance a 5 [place] Yueh needle catheter was sequentially advanced into the targeted fluid collection under CT guidance. Approximately 20 cc'c of purulent fluid was aspirated from the catheter. No additional fluid could be obtained. Catheter was withdrawn. Hemostasis was achieved. The access site was covered with a sterile dressing. Post aspiration CT was performed which demonstrated trace amount of residual fluid in the gallbladder fossa. Patient tolerated the procedure well without evidence of complications and was transferred back to the floor. IMPRESSION: Successful CT-guided aspiration of gallbladder fossa fluid collection. Approximately 20 cc of purulent fluid aspirated and sent to lab for analysis.
[2025-09-25 07:19] LABS: Basophils # (Auto) 0.1 Thou/mm3 (0.0-0.2); Basophils % (Auto) 1 % (0-2.5); Eosinophils # (Auto) 0.9 Thou/mm3 (0.0-0.5); Eosinophils % (Auto) 8 % (0-10); Hematocrit 31.7 % (36.0-46.0); Hemoglobin 10.3 g/dL (12.0-16.0); Immature Granulocytes Auto 0.29 Thou/mm3 (0.00-0.00); Lymphocytes # (Auto) 2.2 Thou/mm3 (1.0-4.8); Lymphocytes % (Auto) 18 % (10-50); Mean Corpuscular HGB Conc 32.5 g/dl (31.0-37.0); Mean Corpuscular Hemoglobin 28.6 pg (25.0-35.0); Mean Corpuscular Volume 88 fL (80-100); Monocytes # (Auto) 0.9 Thou/mm3 (0.0-0.8); Monocytes % (Auto) 8 % (0-12); Neutrophils # (Auto) 7.5 Thou/mm3 (1.8-7.7); Neutrophils % (Auto) 64 % (37-80); Nucleated Red Blood Cell # 0.00 Thou/mm3 (0.00-0.00); Nucleated Red Blood Cell % 0 /100 WBC (0); Platelet Count 388 Thou/mm3 (140-440); RDW Standard Deviation 43.8 fL (36.4-46.3); Red Blood Count 3.60 Miln/mm3 (4.00-5.20); White Blood Count 11.9 Thou/mm3 (3.6-11.0)
[2025-09-25 07:42] LABS: Alanine Aminotransferase < 7 U/L (10-49); Albumin, Serum 3.7 gm/dL (3.4-4.8); Albumin/Globulin Ratio 1.3 (1.2-2.2); Alkaline Phosphatase 83 U/L (46-116); Anion Gap 10 (7-16); Aspartate Amino Transferase 14 U/L (0-34); BUN/Creatinine Ratio 10 Ratio (12-20); Bilirubin,Total 0.3 mg/dL (0.3-1.2); Blood Urea Nitrogen 6 mg/dL (9-23); Calcium 8.9 mg/dL (8.3-10.6); Calcium (Corrected) 9.1 mg/dL (8.5-10.1); Carbon Dioxide 28.1 mMol/L (20.0-31.0); Chloride 106 mMol/L (98-107); Creatinine (Component) 0.6 mg/dL (0.6-1.3); Estimated Creatinine Clearance 89.9 mL/min (>60); Globulin 2.8 gm/dL (2.3-3.5); Glucose 98 mg/dL (74-106); Magnesium 1.7 mg/dL (1.6-2.6); Osmolality,Calculated 284 (275-295); Phosphorous 4.7 mg/dL (2.4-5.1); Potassium 4.3 mMol/L (3.4-5.1); Sodium 144 mMol/L (136-145); Total Protein 6.5 gm/dL (5.7-8.2); eGFR > 60 See Note
[2025-09-25 08:42] LABS: INR 1.0 (0.9-1.3); Partial Thromboplastin Time 26.4 Seconds (22.0-36.0); Prothrombin Time 10.3 Seconds (9.0-12.2)
[2025-09-25] MEDS: CITALOPRAM 20 MG TABLET 40 MG PO (08:46)
[2025-09-25] MEDS: PANTOPRAZOLE 40 MG TABLET PO (08:46)
[2025-09-25] MEDS: cefTRIAXone/D5w 1gm IV premix 1 GM/50 ML BAG IV (08:46)
[2025-09-25] MEDS: MIDAZOLAM INJ 1 MG/ML VIAL 2 ML 0.5 MG IVP (10:00)
[2025-09-25] MEDS: fentaNYL CIT INJ 50 mCg/ML AMP 2ML IVP (10:01)
[2025-09-25] MEDS: LIDOCAINE INJ PF 1% 30 ML VIAL EPID (10:10)
--- NOTE | 2025-09-25 12:30 | PC.NURSE ---
patient was taken to cathlab for consent DR Hale talked to patient and explained the procedure, Patient agreed patient was then taken to CT in supine position, patient prepped and draped (see MAR for medications given) was able to pull out fluids from abscess and wanted me to take the sample upstairs inside of a daniels so they can decide what to order procedural site was covered with a gauze and tegaderm, no signs of bleeding or hematoma patient stable report given to [facility] Sandoval
--- NOTE | 2025-09-25 14:45 | ESDS_ITS ---
<Statement entered by Rocky Albarado MD - 09/25/25 15:45> I saw and examined patient personally and supervised PGY 1 resident, Dr. Mobley with formulating a discharge plan. I agree with the documentation as listed below. Plan of care discussed with Attending Dr. Kira Albarado MD PGY 2 Disclaimer: This note was dictated by speech recognition. Minor errors in screw remover may be present due to voice recognition software. Planned Discharge Date 09/25/25 DS: Providers Provider Date of admission: 09/17/25 14:13 Primary care physician: Physician No Primary/Family Admitting Provider: Lambert Malone MD Attending Provider on Admission: Matthew De La Cruz DO Consults: 09/17/25 12:09 Consult to General Surgery Stat Comment: Consulting Provider: Aurora Redding 09/17/25 14:30 Consult to Infectious Diseases Routine Comment: Consulting Provider: Jac Machado Attending Provider on DC: Gil Malone MD Discharging Provider: Janey Mobley DO DS: Diagnosis Problem List Completed Was Problem List Reviewed/Reconciled?: Yes Hospital Course Hospital Course Hospital course: Patient is a 60-year-old female with past medical history of degenerative disc disease, GERD, depression, and recent cholecystectomy presenting to the ED on 09/17/2025 for recurrent pain/fever. Patient had been hospitalized with gallstone pancreatitis and underwent laparoscopic cholecystectomy on 08/30/2025. Her course was complicated by gallbladder fossa abscess drained 09/03-. Patient was readmitted for development of a second gallbladder fossa abscess, first drained on 09/17. CT scan showed 8.4 cm abscess at gallbladder fossa. WBC 14 on admission. Patient was started on ceftriaxone IV 1 g daily and sent for urine and wound cultures. Urine cultures grew Enterobacter and the wound cultures showed E. coli. Blood cultures showed no growth at 48-hour point. After about 90cc of hemopurulent output from the drain, the output had minimized and CTAP showed that the drainage catheter had been partially pulled out. GB fossa infection, abscess was depicted again. Therefore drain was placed a sec ond time by CT-guided IR drain placement at the GB fossa abscess. After about 45 mL of additional output, it was noted that the brain had dislodged for a second time. Surgery was consulted who recommended aspiration, which removed an additional 10 cc. Patient stayed afebrile through her hospital course and her presenting leukocytosis resolved. At the time of discharge, patient is medically stable and deemed safe to return to his/her previous state of living. Admission diagnoses: # Recurrent intra-abdominal abscess in setting of recent cholecystectomy #GERD #Depression Discharge instructions: ? You have been started on antibiotic cefuroxime. Take 1 tablet twice a day for the next 2 weeks. ? You have been started on antibiotic metronidazole. Take 1 tablet 3 times a day for the next 2 weeks. ? Started on lactobacilli to prevent diarrhea. Also eat yogurt daily to prevent diarrhea from antibiotics. ? Continue rest of your home medication as before ? Keep your follow-up appointment with Dr. Redding on 10/01/2025 - Repeat lab work and CT abdomen in 1 week. Review the results with your primary care doctor. - Follow up with your primary care physician within 1 week of discharge to review labs and CT scan. If you do not have a primary care physician, please follow up with the [facility] Residents clinic ([phone]) ? If you experience any new, worsening or persistent symptoms either call your primary doctor, or dial 911 or present to the emergency department. This case was discussed with my attending physician, Dr. Malone, and senior resident, Dr Albarado. Even though this this note was carefully revised there may still be minor errors in screw remover due to voice recognition software. Janey Mobley, DO PGY I Status at Discharge Overall status at discharge: patient is back to baseline Time Spent with Patient Time attestation: Total time spent providing and/or coordinating discharge services: more than 50% of the patient's total hospital stay Time spent: Greater than 30 minutes Home Health Home Health Referral Orders: General: A/O x3, no acute distress, well-nourished, well-developed Eyes: PERRL, EOMI. Anicteric, vision grossly intact. Ears: No ear pain, no ear discharge, Hearing grossly intact. Nose: No nasal discharge. Mouth/Throat: Moist mucous membranes, no redness, no lesions. Neck: Neck supple, non-tender, no cervical lymphadenopathy. Lungs: Clear DOMINGA to auscultation and percussion, No accessory muscle use. Cardio: Normal S1/S2, regular rhythm, no murmurs, no JVD or carotid bruits. Abdomen: Rt sided abdominal tenderness to palpation; drain removed the site, the ovelrying skin does not show surrounding erythema, purulence, or bleeding. Extremities: Symmetrical, no significant deformities, no peripheral edema , non-tender, peripheral pulses present. Skin: No rashes, no lesions, warm to touch. Neuro: No focal neurological deficits. Psych: Cooperative, appropriate mood and effect. Exam Vital Signs Temp Pulse Resp BP Pulse Ox O2 Del Method O2 Flow Rate 98.8 F 63 16 105/76 98 Room Air 3 09/25/25 12:00 09/25/25 13:15 09/25/25 12:00 09/25/25 12:00 09/25/25 12:00 09/25/25 12:00 09/25/25 10:25 Discharge Plan Plan Patient Disposition: HOME (Self Care) Patient condition on transfer: Stable Care Plan Goals: ? You have been started on antibiotic cefuroxime. Take 1 tablet twice a day for the next 2 weeks. ? You have been started on antibiotic metronidazole. Take 1 tablet 3 times a day for the next 2 weeks. ? Started on lactobacilli to prevent diarrhea. Also eat yogurt daily to prevent diarrhea from antibiotics. ? Continue rest of your home medication as before ? Keep your follow-up appointment with Dr. Redding on 10/01/2025 - Repeat lab work and CT abdomen in 1 week. Review the results with your primary care doctor. - Follow up with your primary care physician within 1 week of discharge to review labs and CT scan. If you do not have a primary care physician, please follow up with the [facility] Res[facility] clinic ([phone]) ? If you experience any new, worsening or persistent symptoms either call your primary doctor, or dial 911 or present to the emergency department. Prescriptions/Referrals Prescriptions/Med Rec: New Lactobacillus acidophilus 1 billion cell capsule 1,000 mmu cells PO QDAY 10 Days Qty: 10 0RF cefuroxime axetil 500 mg tablet 500 mg PO BID 14 Days Qty: 28 0RF metronidazole 500 mg tablet 500 mg PO Q8H 14 Days Qty: 42 0RF Continued omeprazole 40 mg capsule,delayed release(DR/EC) 40 mg PO QDAY citalopram [Celexa] 40 mg tablet 40 mg PO QDAY Referrals: Aurora Redding MD [Physician, General Surgery] No Primary/Family,Physician [Primary Care Provider] Outpatient Orders (i.e. Home Health, Labs, Imaging): CT abdomen pelvis w con (Routine) Timeframe: 1 Week Location: Determined by Patient Ordered By: Rocky Albarado CBC (Routine) Timeframe: 1 Week Location: Determined by Patient Ordered By: Rocky Albarado Comprehensive Metabolic Panel (Routine) Timeframe: 1 Week Location: Determined by Patient Ordered By: Rocky Albarado Patient/Caregiver Discharge Instructions Discharge Activity: activity as tolerated Education Materials: Abscess Drainage Print Language: Colombian Stand Alone Forms: Bailey Award Info., Patient Portal Info Letter Discharge Order Discharge Orders: Discharge (Routine); Ordered 09/25/25 Ordered By: Rocky Albarado Quality Discharge Quality Measures VTE prophylaxis Attestestation MD Attestation I discussed with and supervised the resident physician who took care of this patient. I agree with the assessment and discharge plan as above. Continue prescribed pain for [address] scan of the abdomen with contrast with CBC and CMP after 1 week. Follow-up with Dr. Garcia and PCP as scheduled. Return to the ER for recurrent symptoms
[2025-09-25] MEDS: HEPARIN SOD INJ 5000 UNIT/ML VIAL SC (14:46)
== END 2025-09-25 15:52 | disposition home or self-care (01) | DRG 862 ==
LOC: SERX 12:39 → SERHOLD 09-18 06:24 → S3SX 09-18 06:25
PROVIDERS: Internal Medicine Infectious Disease; Nurse Practitioner Family; Radiology Diagnostic Radiology; Admitting Provider Internal Medicine; Emergency Provider Emergency Medicine; Visit Provider Student in an Organized Health Care Education/Training Program
DX: T81.40XA Infection following a procedure, unspecified, initial encounter (principal); K65.1 Peritoneal abscess; Z16.19 Resistance to other specified beta lactam antibiotics; Z90.49 Acquired absence of other specified parts of digestive tract; Z98.84 Bariatric surgery status; K21.9 Gastro-esophageal reflux disease without esophagitis; F32.A Depression, unspecified; B96.20 Unspecified Escherichia coli [E. coli] as the cause of diseases classified elsewhere; Z79.899 Other long term (current) drug therapy
CPT/HCPCS: 36415; 74177; 75989; 80053; 80061; 81001; 83605; 83690; 83735; 84100; 84145; 85025; 85610; 85730; 86703; 86803; 87040; 87070; 87075; 87077; 87081; 87086; 87102; 87186; 87205; 93225; 96361; 96365; 99152; 99283; A4649; C1729; J0696; J1644; J2250; J2270; J2405; J2470; J3010; J3475; J3490; J7030; J7120; Q9967; A9270; C1725

== ENCOUNTER 2025-10-01 14:48 | Outpatient (AMB) | payer BC, SELFPAY ==
--- NOTE | 2025-10-01 14:55 | PD.GSCLVISIT ---
Vital Signs - [facility] 10/01/25 14:56 Height 1.6 m Height Method Measured Weight 72.178 kg Weight Measurement Method Standing Scale BMI 28.2 BP 109/74 Blood Pressure Source Automatic Cuff Blood Pressure Location Left Upper Arm Position Sitting Respiration 18 Pulse 78 Pulse Source Monitor Temp 96.8 F Temp Source Temporal Artery Scan Pulse Oximetry (%) 96 Oxygen Delivery Method Room Air Med/Allergies Allergies & Medications Allergies No Known Allergies Allergy (Verified 10/01/25 14:57) Medication Reconciliation citalopram 40 mg tablet (Celexa) 40 mg PO QDAY 08/28/25 [History Confirmed 10/01/25] omeprazole 40 mg capsule,delayed release 40 mg PO QDAY 08/28/25 [History Confirmed 10/01/25] Lactobacillus acidophilus 1 billion cell capsule 1,000 mmu cells PO QDAY 10 days #10 caps 09/25/25 [Rx Confirmed 10/01/25] cefuroxime axetil 500 mg tablet 500 mg PO BID 2 weeks #28 tabs 09/25/25 [Rx Confirmed 10/01/25] metronidazole 500 mg tablet 500 mg PO Q8H 2 weeks #42 tabs 09/25/25 [Rx Confirmed 10/01/25] MA Intake Visit Data Collection New Patient or Established: Established Patient (seen at [facility] within 3 years) Seen by Clinical Staff ONLY (RN/JOVANI): No Reason for Visit:: F/U ABSCESS Pain Present Currently: No Pain Scale Used: Chavez-Hahn/Numerical [employer] Teacher Required: No PCP or OBGYN visit in last 3 months: Yes Hx Now: No Do You Feel Safe at Home: Yes Authorities Contacted: N/A Smoking Status Smoking Status: Never smoker Immunization / Flu Flu Vaccine in the Last 12 Months: No Flu Vaccine Exclusion Criteria: Refused by Patient Past Medical History Past Medical History NEUROLOGIC: Negative Seizures CARDIAC: Positive Hypotension; Negative Cardiac Disorders or Congestive Heart Failure RESPIRATORY: Negative Chronic Obstructive Pulmonary Disease (COPD) or Asthma GENITOURINARY: Negative Renal Disease ENDOCRINE: Negative Diabetes Mellitus Type 1 or Diabetes Mellitus Type 2 HEMATOLOGIC: Negative Sickle Cell Disease PSYCHO/SOCIAL: Positive Depression OTHER HISTORY: Negative Blood Transfusions, Blood Transfusion Reaction or Anesthesia Reactions Surgical History SURGICAL: Positive Gastric Bypass Surgery Social History SMOKING STATUS: Smoking status: Never smoker ALCOHOL: Alcohol Intake: Never HOUSING: Housing: House LIVES WITH: Lives With: Spouse HPI HPI Narrative 60F with history of gastric bypass, GERD who was hospitalized with gallstone pancreatitis s/p lap rebecca 08/30/25, course complicated by gallbladder fossa abscess drained 09/03-09/06, readmitted 09/17 with a second gallbladder fossa abscess, first drained 09/17 and then drain replaced 09/21, followed by aspiration on 09/25 here for planned follow up. Patient states that she had been feeling well but last night began to have pain in her right upper back, almost prompting her to visit ER but as of this morning she did feel a bit better. She has not needed any pain medication, denies any nausea or fever, is eating well and having regular bowel and bladder function. She had been prescribed cefuroxime and metronidazole which she is taking as directed and had an outpatient CT scheduled for tomorrow but was advised she needs a stat order in order to get it done tomorrow ROS Review of Systems Systems Reviewed: All systems reviewed, normal except as documented Objective/Exam General General Appearance: alert, cooperative and well groomed Resp Respiratory exam: Absent respiratory distress Abdominal Abdominal exam: Present soft and tenderness (Mild right upper quadrant and right flank tenderness); Absent distention Assessment & Plan Diagnosis / Problem List (1) Intra-abdominal abscess: Status: Acute Assessment & Plan: 60F with history of gastric bypass, GERD who was hospitalized with gallstone pancreatitis s/p lap rebecca 08/30/25, course complicated by gallbladder fossa abscess drained 09/03-09/06, readmitted 09/17 with a second gallbladder fossa abscess, first drained 09/17 and then drain replaced 09/21, followed by aspiration on 09/25 here for planned follow up. On exam she appears very well and has normal vital signs, however is having some right back pain which we will evaluate with CT Plan: Follow-up stat CTAP Orders: Orders CT abdomen pelvis w con 10/02/25 K65.1 - Peritoneal abscess Office Procedures GNS Level of Care Nursing/Assessment Patient Status: Established Patient Nursing Assessment/Reassesment: Medication Reconciliation, Update PMH in EMR and Vital Signs Coordination of Care: Complex Care and Chronic Disease 1-5, Education Complex Pt/Fam, Consent,records obtained, informed consent, Results/Orders obtained and Staff clarify orders Established Patient Charge Established Patient Point Assignment: 95 Established Patient Point Charge: EP Level 3 (80-115) Patient Portal Questionaires Social History Living Situation History Housing: House Housing Other:: Pt resides with Tobacco History Smoking Status: Never smoker Alcohol History Alcohol Intake: Never Domestic Abuse History Do You Feel Safe at Home: Yes Review of Systems Report any current symptoms Only answer those that you have currently: Past Medical History Past Medical History Have you ever been diagnosed with any of the following: Neurological Problems Seizures: No Cardiology Problems Congestive Heart Failure: No Hypotension: Yes Respiratory Problems Chronic Obstructive Pulmonary Disease (COPD): No Asthma: No Genital/Urinary Problems Renal Disease: No Endocrine Problems Diabetes Mellitus Type 1: No Diabetes Mellitus Type 2: No Blood Problems Sickle Cell Disease: No Psychologic Problems Depression: Yes Other Problems Blood Transfusions: No Blood Transfusion Reaction: No Anesthesia Reactions: No
[2025-10-01 14:56] VITALS: BP 109/74; PULSE 78; RESP 18; TEMP 36; O2SAT 96; BMI 28.2
== END 2025-10-01 15:10 | disposition home or self-care (01) ==
LOC: HODSRG 14:48
PROVIDERS: Supervising Provider Surgery; Visit Provider Surgery
DX: K65.1 Peritoneal abscess (principal); Z98.84 Bariatric surgery status; K21.9 Gastro-esophageal reflux disease without esophagitis
CPT/HCPCS: 99213; G0463

== ENCOUNTER → 2025-10-01 | Outpatient (CLI) | payer BC, SELFPAY ==
[2025-10-01 16:51] LABS: Basophils # (Auto) 0.1 Thou/mm3 (0.0-0.2); Basophils % (Auto) 1 % (0-2.5); Eosinophils # (Auto) 0.8 Thou/mm3 (0.0-0.5); Eosinophils % (Auto) 7 % (0-10); Hematocrit 37.2 % (36.0-46.0); Hemoglobin 11.7 g/dL (12.0-16.0); Immature Granulocytes Auto 0.16 Thou/mm3 (0.00-0.00); Lymphocytes # (Auto) 2.4 Thou/mm3 (1.0-4.8); Lymphocytes % (Auto) 20 % (10-50); Mean Corpuscular HGB Conc 31.5 g/dl (31.0-37.0); Mean Corpuscular Hemoglobin 28.1 pg (25.0-35.0); Mean Corpuscular Volume 89 fL (80-100); Monocytes # (Auto) 0.9 Thou/mm3 (0.0-0.8); Monocytes % (Auto) 8 % (0-12); Neutrophils # (Auto) 7.5 Thou/mm3 (1.8-7.7); Neutrophils % (Auto) 63 % (37-80); Nucleated Red Blood Cell # 0.00 Thou/mm3 (0.00-0.00); Nucleated Red Blood Cell % 0 /100 WBC (0); Platelet Count 477 Thou/mm3 (140-440); RDW Standard Deviation 46.1 fL (36.4-46.3); Red Blood Count 4.17 Miln/mm3 (4.00-5.20); White Blood Count 11.8 Thou/mm3 (3.6-11.0)
[2025-10-01 17:15] LABS: Alanine Aminotransferase < 7 U/L (10-49); Albumin, Serum 4.6 gm/dL (3.4-4.8); Albumin/Globulin Ratio 1.6 (1.2-2.2); Alkaline Phosphatase 77 U/L (46-116); Anion Gap 11 (7-16); Aspartate Amino Transferase 16 U/L (0-34); BUN/Creatinine Ratio 15 Ratio (12-20); Bilirubin,Total 0.3 mg/dL (0.3-1.2); Blood Urea Nitrogen 9 mg/dL (9-23); Calcium 9.6 mg/dL (8.3-10.6); Calcium (Corrected) 9.6 mg/dL (8.5-10.1); Carbon Dioxide 27.2 mMol/L (20.0-31.0); Chloride 104 mMol/L (98-107); Creatinine (Component) 0.6 mg/dL (0.6-1.3); Globulin 2.8 gm/dL (2.3-3.5); Glucose 105 mg/dL (74-106); Osmolality,Calculated 281 (275-295); Potassium 4.6 mMol/L (3.4-5.1); Sodium 142 mMol/L (136-145); Total Protein 7.4 gm/dL (5.7-8.2); eGFR > 60 See Note
== END | disposition home or self-care (01) ==
LOC: COPL 15:16
PROVIDERS: PCP Internal Medicine
DX: K65.1 Peritoneal abscess (principal)
CPT/HCPCS: 36415; 80053; 85025